=== PATIENT | male | born 1960 | race Caucasian/White ===

== ENCOUNTER 2016-11-14 09:51 | Emergency (ER) | payer BC ==
[2016-11-14] MEDS ORDERED: SODIUM CHLORIDE 0.9% 500 ML IV STA (10:25)
--- NOTE | 2016-11-14 10:27 | ED ---
General Adult HPI - General Chief complaint: Syncope Stated complaint: Near Syncope Time Seen by Provider: 11/14/16 09:55 Source: patient, EMS, RN notes reviewed Mode of arrival: EMS Limitations: no limitations - History of Present Illness Initial comments: This is a 56-year-old male who states that he comes in today because he had a near syncopal episode working on his blood pressure was taken it was 240 systolic. Patient states this is the third episode of near syncope had this week and he has had a history of that in the past many years ago. Patient states prior to the event he becomes lightheaded and feels as though occurred is being pulled over side and then he almost goes out and Lasix to the side. Patient states he had no chest pain no palpitations no difficulty breathing or shortness of breath. Patient states he has a history of hyponatremia. Patient denied any headache patient denied any focal numbness or weakness. Patient denies any abdominal pain patient with any recent nausea vomiting diarrhea. Patient denied working in an extremely hot environment. Patient states she is adequately hydrated he believes. Eyes any recent fever or chills. - Related Data Home Medications Medication Instructions Recorded Confirmed Olmesartan [Benicar] 5 mg PO DAILY 12/08/13 11/14/16 Cholecalciferol [Vitamin D3] 5,000 unit PO DAILY 11/14/16 11/14/16 Multivitamins, Thera [Multivitamin 1 tab PO DAILY 11/14/16 11/14/16 (formulary)] Allergies Allergy/AdvReac Type Severity Reaction Status Date / Time iodine Allergy Anaphylaxis Verified 11/14/16 10:39 Review of Systems ROS Statement: Those systems with pertinent positive or pertinent negative responses have been documented in the HPI. ROS Other: All systems not noted in ROS Statement are negative. Past Medical History Past Medical History: Hypertension History of Any Multi-Drug Resistant Organisms: None Reported Past Surgical History: Bariatric Surgery Additional Past Surgical History / Comment(s): uvula surgery Past Psychological History: No Psychological Hx Reported Smoking Status: Never smoker Past Alcohol Use History: None Reported Past Drug Use History: None Reported General Exam - General Exam Comments Initial Comments: GENERAL: Patient is well-developed and well-nourished. Patient is nontoxic and well- hydrated and is in no acute distress. ENT: Neck is soft and supple. No significant lymphadenopathy is noted. Oropharynx is clear. Moist mucous membranes. Neck has full range of motion without eliciting any pain. EYES: The sclera were anicteric and conjunctiva were pink and moist. Extraocular movements were intact and pupils were equal round and reactive to light. Eyelids were unremarkable. PULMONARY: Unlabored respirations. Good breath sounds bilaterally. No audible rales rhonchi or wheezing was noted. CARDIOVASCULAR: There is a regular rate and rhythm without any murmurs gallops or rubs. ABDOMEN: Soft and nontender with normal bowel sounds. No palpable organomegaly was noted. There is no palpable pulsatile mass. SKIN: Skin is clear with no lesions or rashes and otherwise unremarkable. NEUROLOGIC: Patient is alert and oriented x3. Cranial nerves II through XII are grossly intact. Motor and sensory are also intact. Normal speech, volume and content. Symmetrical smile. MUSCULOSKELETAL: Normal extremities with adequate strength and full range of motion. No lower extremity swelling or edema. No calf tenderness. LYMPHATICS: No significant lymphadenopathy is noted PSYCHIATRIC: Normal psychiatric evaluation. Limitations: no limitations Course Vital Signs 11/14/16 11/14/16 09:53 10:49 Temperature 97.7 F Pulse Rate 93 89 Respiratory 20 20 Rate Blood Pressure 218/97 159/90 O2 Sat by Pulse 97 98 Oximetry Medical Decision Making - Medical Decision Making EKG shows a normal sinus rhythm at 91 bpm WV interval is 170 QRS is 90 QT interval 366 QTC is 450. Patient's EKG shows no ST segment elevation or depression or T wave abnormalities are noted. Patient's labs came back within normal limits I told the patient like to keep him because this is third near syncopal episode this week patient states he had to go somewhere on the weekend and did not want to stay so he was refusing admission. - Lab Data Result diagrams: 11/14/16 10:10 11/14/16 10:10 Lab Results 11/14/16 11/14/16 11/14/16 Range/Units 10:10 10:10 10:10 WBC 9.8 (3.8-10.6) k/uL RBC 4.87 (4.30-5.90) m/uL Hgb 15.4 (13.0-17.5) gm/dL Hct 44.5 (39.0-53.0) % MCV 91.5 (80.0-100.0) fL MCH 31.6 (25.0-35.0) pg MCHC 34.6 (31.0-37.0) g/dL RDW 14.4 (11.5-15.5) % Plt Count 242 (150-450) k/uL Neutrophils % 71 % Lymphocytes % 20 % Monocytes % 4 % Eosinophils % 4 % Basophils % 1 % Neutrophils # 6.9 (1.3-7.7) k/uL Lymphocytes # 1.9 (1.0-4.8) k/uL Monocytes # 0.4 (0-1.0) k/uL Eosinophils # 0.4 (0-0.7) k/uL Basophils # 0.1 (0-0.2) k/uL PT (9.0-12.0) sec INR (<1.2) APTT (22.0-30.0) sec Sodium 141 (137-145) mmol/L Potassium 3.5 (3.5-5.1) mmol/L Chloride 105 (98-107) mmol/L Carbon Dioxide 27 (22-30) mmol/L Anion Gap 9 mmol/L BUN 10 (9-20) mg/dL Creatinine 0.73 (0.66-1.25) mg/dL Est GFR (MDRD) Af Amer >60 (>60 ml/min/1.73 sqM) Est GFR (MDRD) Non-Af >60 (>60 ml/min/1.73 sqM) Glucose 124 H (74-99) mg/dL Calcium 9.1 (8.4-10.2) mg/dL Magnesium 1.7 (1.6-2.3) mg/dL Total Bilirubin 0.8 (0.2-1.3) mg/dL AST 20 (17-59) U/L ALT 24 (21-72) U/L Alkaline Phosphatase 75 (38-126) U/L Total Creatine Kinase 25 L (55-170) U/L CK-MB (CK-2) 0.5 (0.0-2.4) ng/mL CK-MB (CK-2) Rel Index 2.0 Troponin I <0.012 (0.000-0.034) ng/mL Total Protein 6.5 (6.3-8.2) g/dL Albumin 3.8 (3.5-5.0) g/dL 11/14/16 Range/Units 10:10 WBC (3.8-10.6) k/uL RBC (4.30-5.90) m/uL Hgb (13.0-17.5) gm/dL Hct (39.0-53.0) % MCV (80.0-100.0) fL MCH (25.0-35.0) pg MCHC (31.0-37.0) g/dL RDW (11.5-15.5) % Plt Count (150-450) k/uL Neutrophils % % Lymphocytes % % Monocytes % % Eosinophils % % Basophils % % Neutrophils # (1.3-7.7) k/uL Lymphocytes # (1.0-4.8) k/uL Monocytes # (0-1.0) k/uL Eosinophils # (0-0.7) k/uL Basophils # (0-0.2) k/uL PT 10.5 (9.0-12.0) sec INR 1.0 (<1.2) APTT 23.5 (22.0-30.0) sec Sodium (137-145) mmol/L Potassium (3.5-5.1) mmol/L Chloride (98-107) mmol/L Carbon Dioxide (22-30) mmol/L Anion Gap mmol/L BUN (9-20) mg/dL Creatinine (0.66-1.25) mg/dL Est GFR (MDRD) Af Amer (>60 ml/min/1.73 sqM) Est GFR (MDRD) Non-Af (>60 ml/min/1.73 sqM) Glucose (74-99) mg/dL Calcium (8.4-10.2) mg/dL Magnesium (1.6-2.3) mg/dL Total Bilirubin (0.2-1.3) mg/dL AST (17-59) U/L ALT (21-72) U/L Alkaline Phosphatase (38-126) U/L Total Creatine Kinase (55-170) U/L CK-MB (CK-2) (0.0-2.4) ng/mL CK-MB (CK-2) Rel Index Troponin I (0.000-0.034) ng/mL Total Protein (6.3-8.2) g/dL Albumin (3.5-5.0) g/dL Disposition Clinical Impression: Near syncope Disposition: HOME SELF-CARE Condition: Good Instructions: Near Syncope (ED) Additional Instructions: Patient should not drive until he is reevaluated for his near syncope Referrals: Lloyd Lindsay DO [Primary Care Provider] - 1-2 days Time of Disposition: 11:46
--- NOTE | 2016-11-14 10:40 | XR ---
EXAMINATION TYPE: XR chest 2V DATE OF EXAM: 11/14/2016 COMPARISON: 04/17/2011 INDICATION: Chest pain and dizziness syncope TECHNIQUE: Frontal and lateral views of the chest are obtained. FINDINGS: The heart size is normal. The pulmonary vasculature is normal. The lungs are clear. Azygos fissure is evident. EKG leads overlie the chest. IMPRESSION: 1. No acute pulmonary process.
[2016-11-14 10:48] LABS: Basophils # (A) 0.1 k/uL (0-0.2); Basophils % (A) 1 %; CHCM 36.3; Eosinophils # (A) 0.4 k/uL (0-0.7); Eosinophils % (A) 4 %; HCT 44.5 % (39.0-53.0); HGB 15.4 gm/dL (13.0-17.5); Luc # (Auto) 0.08; Luc % (Auto) 1; Lymphocytes # (A) 1.9 k/uL (1.0-4.8); Lymphocytes % (A) 20 %; MCH 31.6 pg (25.0-35.0); MCHC 34.6 g/dL (31.0-37.0); MCV 91.5 fL (80.0-100.0); Mean Platelet Volume 7.1; Monocytes # (A) 0.4 k/uL (0-1.0); Monocytes % (A) 4 %; Neutrophils # (A) 6.9 k/uL (1.3-7.7); Neutrophils % (A) 71 %; RBC 4.87 m/uL (4.30-5.90); RDW 14.4 % (11.5-15.5); WBC 9.8 k/uL (3.8-10.6); WBC (Perox) 9.47
[2016-11-14 10:51] LABS: Partial Thromboplastin Time 23.5 sec (22.0-30.0); Prothrombin Time 10.5 sec (9.0-12.0)
[2016-11-14 11:00] LABS: ALT 24 U/L (21-72); AST 20 U/L (17-59); Alkaline Phosphatase 75 U/L (38-126); Anion Gap 9 mmol/L; Blood Urea Nitrogen 10 mg/dL (9-20); Calcium 9.1 mg/dL (8.4-10.2); Carbon Dioxide 27 mmol/L (22-30); Chloride 105 mmol/L (98-107); Glucose 124 mg/dL (74-99); Magnesium 1.7 mg/dL (1.6-2.3); Non-African American GFR(MDRD) >60 (>60 ml/min/1.73 sqM); Potassium 3.5 mmol/L (3.5-5.1); Sodium 141 mmol/L (137-145); Total Bilirubin 0.8 mg/dL (0.2-1.3); Total Protein 6.5 g/dL (6.3-8.2)
[2016-11-14 11:10] LABS: Creatine Kinase 25 U/L (55-170)
[2016-11-14 11:21] LABS: Troponin I <0.012 ng/mL (0.000-0.034)
[2016-11-14 11:22] LABS: Creatine Kinase MB 0.5 ng/mL (0.0-2.4)
[2016-11-14 12:04] VITALS: BP 159/76; PULSE 58; RESP 18; TEMP 97.9
== END 2016-11-14 12:03 | disposition home or self-care (01) ==
LOC: EC 09:51
DX: R55 Syncope and collapse (principal); I10 Essential (primary) hypertension; Z91.048 Other nonmedicinal substance allergy status; Z79.899 Other long term (current) drug therapy
CPT/HCPCS: 36415; 71020; 80053; 82550; 82553; 83735; 84484; 85025; 85610; 85730; 93005; 99285

== ENCOUNTER 2017-05-13 12:47 | Day surgery (SDC) | payer BC ==
[2017-05-12 11:10] VITALS: BMI 43.4
[~2017-05-13 12:47] MED LIST: SODIUM CHLORIDE 0.9% 1,000 ML IV SCH
[2017-05-13 13:06] VITALS: BP 182/104; PULSE 76; RESP 18; TEMP 97.9
--- NOTE | 2017-05-13 16:30 | P.PCN ---
Preoperative Diagnosis: Tilt table test for recurrent dizzy spells and presyncope as well as syncope The ECG shows sinus rhythm with a normal GA interval narrow QRS normal ST segments no delta waves no epsilon waves no ST segment abnormalities in the precordial leads normal QT interval Tilt table test procedure Baseline blood pressure 146/87 mmHg Baseline heart rate 60 beats a minute Patient was tilted upright at an angle of 70 per protocol there wasno change in his heart rate and blood pressure the patient remained asymptomatic through the test Impression Normal heart rate and blood pressure response to upright tilting Hypertension No evidence for neurocardiogenic syncope or dysautonomia Anesthesia: none Condition: stable
== END 2017-05-13 15:05 | disposition home or self-care (01) ==
LOC: CATHEP 12:47
PROVIDERS: ATTEND Internal Medicine Clinical Cardiac Electrophysiology
DX: R55 Syncope and collapse (principal); I10 Essential (primary) hypertension; E78.2 Mixed hyperlipidemia; Z98.84 Bariatric surgery status; Z87.891 Personal history of nicotine dependence; Z79.82 Long term (current) use of aspirin; Z79.899 Other long term (current) drug therapy; Z91.041 Radiographic dye allergy status; Z91.013 Allergy to seafood
CPT/HCPCS: 93005; 93660

== ENCOUNTER 2017-05-31 09:02 | Emergency (ER) | payer BC ==
[2017-05-31 09:13] VITALS: BP 164/71; RESP 16; TEMP 97.5
[2017-05-31] MEDS ORDERED: SODIUM CHLORIDE 0.9% 1,000 ML IV STA (09:13)
[2017-05-31 09:28] VITALS: PULSE 61
[2017-05-31 09:40] LABS: Basophils # (A) 0.1 k/uL (0-0.2); Basophils % (A) 1 %; Eosinophils # (A) 0.4 k/uL (0-0.7); Eosinophils % (A) 5 %; HGB 15.2 gm/dL (13.0-17.5); Lymphocytes # (A) 2.6 k/uL (1.0-4.8); Lymphocytes % (A) 35 %; MCH 30.5 pg (25.0-35.0); MCHC 33.2 g/dL (31.0-37.0); MCV 92.1 fL (80.0-100.0); Mean Platelet Volume 6.6; Monocytes # (A) 0.4 k/uL (0-1.0); Monocytes % (A) 5 %; Neutrophils % (A) 52 %; Platelet Count 252 k/uL (150-450); RBC 4.99 m/uL (4.30-5.90); RDW 12.8 % (11.5-15.5); WBC 7.6 k/uL (3.8-10.6)
--- NOTE | 2017-05-31 09:56 | ED ---
General Adult HPI - General Chief complaint: Syncope Stated complaint: Syncope Time Seen by Provider: 05/31/17 09:04 Source: patient, family, RN/MD, RN notes reviewed, old records reviewed Mode of arrival: wheelchair Limitations: no limitations - History of Present Illness Initial comments: This is a 48-year-old male the ER for evaluation of syncopal event. Patient has history of recurrent syncope. History of heart disease history of atrial fibrillation. Patient recently went up on his metoprolol dosing. Patient was getting blood drawn today for outpatient lab test in the future procedure, patient passed out during exam. Patient comes ER today feeling fatigued lightheaded and dizzy. No chest pain or shortness of breath - Related Data Home Medications Medication Instructions Recorded Confirmed Cholecalciferol [Vitamin D3] 5,000 unit PO DAILY 11/14/16 05/31/17 Multivitamins, Thera [Multivitamin 1 tab PO DAILY 11/14/16 05/31/17 (formulary)] Aspirin [Adult Low Dose Aspirin EC] 81 mg PO HS 05/12/17 05/31/17 Losartan [Cozaar] 50 mg PO DAILY@1200 05/12/17 05/31/17 Metoprolol Tartrate [Lopressor] 50 mg PO BID 05/12/17 05/31/17 Ranitidine HCl [Zantac] 150 mg PO DIRECTED 05/31/17 05/31/17 diphenhydrAMINE HCL [Benadryl] 25 mg PO DIRECTED 05/31/17 05/31/17 predniSONE 40 mg PO DIRECTED 05/31/17 05/31/17 Allergies Allergy/AdvReac Type Severity Reaction Status Date / Time iodine Allergy Anaphylaxis Verified 05/31/17 10:45 Review of Systems ROS Statement: Those systems with pertinent positive or pertinent negative responses have been documented in the HPI. ROS Other: All systems not noted in ROS Statement are negative. Past Medical History Past Medical History: Atrial Fibrillation, Hypertension, Syncope Additional Past Medical History / Comment(s): SEE DR KIDD H&P History of Any Multi-Drug Resistant Organisms: None Reported Past Surgical History: Bariatric Surgery, Orthopedic Surgery Additional Past Surgical History / Comment(s): GASTRIC SLEEVE, LEFT KNEE SX, uvula surgery Past Anesthesia/Blood Transfusion Reactions: Previous Problems w/ Anesthesia Additional Past Anesthesia/Blood Transfusion Reaction / Comment(s): STATES TAKES LONGER TO WAKE UP Past Psychological History: No Psychological Hx Reported Smoking Status: Never smoker Past Alcohol Use History: None Reported Past Drug Use History: None Reported - Past Family History Father Family Medical History: Deep Vein Thrombosis (DVT) General Exam Limitations: no limitations General appearance: alert, in no apparent distress Head exam: Present: atraumatic, normocephalic, normal inspection Eye exam: Present: normal appearance, PERRL, EOMI. Absent: scleral icterus, conjunctival injection, periorbital swelling ENT exam: Present: normal exam, mucous membranes moist Neck exam: Present: normal inspection. Absent: tenderness, meningismus, lymphadenopathy Respiratory exam: Present: normal lung sounds bilaterally. Absent: respiratory distress, wheezes, rales, rhonchi, stridor Cardiovascular Exam: Present: normal rhythm, bradycardia, normal heart sounds. Absent: systolic murmur, diastolic murmur, rubs, gallop, clicks GI/Abdominal exam: Present: soft, normal bowel sounds. Absent: distended, tenderness, guarding, rebound, rigid Extremities exam: Present: normal inspection, full ROM, normal capillary refill. Absent: tenderness, pedal edema, joint swelling, calf tenderness Back exam: Present: normal inspection Neurological exam: Present: alert, oriented X3, CN II-XII intact Psychiatric exam: Present: normal affect, normal mood Skin exam: Present: warm, dry, intact, normal color. Absent: rash Course Vital Signs 05/31/17 05/31/17 09:11 09:24 Temperature 97.5 F L Pulse Rate 54 L 61 Respiratory 16 16 Rate Blood Pressure 164/71 O2 Sat by Pulse 97 Oximetry - Reevaluation(s) Reevaluation #1: 05/31/17 09:56 Patient has multiple issues in the past with recurrent syncope EKG Findings - EKG Comments: EKG Findings:: EKG shows sinus bradycardia rate of 47, SC 184, QRS 82, QTC 377 Medical Decision Making - Lab Data Result diagrams: 05/31/17 09:20 05/31/17 09:20 Lab Results 05/31/17 05/31/17 05/31/17 Range/Units 09:20 09:20 09:20 WBC 7.6 (3.8-10.6) k/uL RBC 4.99 (4.30-5.90) m/uL Hgb 15.2 (13.0-17.5) gm/dL Hct 46.0 (39.0-53.0) % MCV 92.1 (80.0-100.0) fL MCH 30.5 (25.0-35.0) pg MCHC 33.2 (31.0-37.0) g/dL RDW 12.8 (11.5-15.5) % Plt Count 252 (150-450) k/uL Neutrophils % 52 % Lymphocytes % 35 % Monocytes % 5 % Eosinophils % 5 % Basophils % 1 % Neutrophils # 4.0 (1.3-7.7) k/uL Lymphocytes # 2.6 (1.0-4.8) k/uL Monocytes # 0.4 (0-1.0) k/uL Eosinophils # 0.4 (0-0.7) k/uL Basophils # 0.1 (0-0.2) k/uL PT (9.0-12.0) sec INR (<1.2) APTT (22.0-30.0) sec Sodium 141 (137-145) mmol/L Potassium 4.1 (3.5-5.1) mmol/L Chloride 104 (98-107) mmol/L Carbon Dioxide 25 (22-30) mmol/L Anion Gap 12 mmol/L BUN 13 (9-20) mg/dL Creatinine 0.70 (0.66-1.25) mg/dL Est GFR (MDRD) Af Amer >60 (>60 ml/min/1.73 sqM) Est GFR (MDRD) Non-Af >60 (>60 ml/min/1.73 sqM) Glucose 102 H (74-99) mg/dL Calcium 9.7 (8.4-10.2) mg/dL Phosphorus 3.8 (2.5-4.5) mg/dL Magnesium 1.8 (1.6-2.3) mg/dL Total Bilirubin 0.9 (0.2-1.3) mg/dL AST 21 (17-59) U/L ALT 34 (21-72) U/L Alkaline Phosphatase 78 (38-126) U/L Total Creatine Kinase 24 L (55-170) U/L CK-MB (CK-2) 0.6 (0.0-2.4) ng/mL CK-MB (CK-2) Rel Index 2.5 Troponin I <0.012 (0.000-0.034) ng/mL Total Protein 6.7 (6.3-8.2) g/dL Albumin 3.8 (3.5-5.0) g/dL 05/31/17 Range/Units 09:20 WBC (3.8-10.6) k/uL RBC (4.30-5.90) m/uL Hgb (13.0-17.5) gm/dL Hct (39.0-53.0) % MCV (80.0-100.0) fL MCH (25.0-35.0) pg MCHC (31.0-37.0) g/dL RDW (11.5-15.5) % Plt Count (150-450) k/uL Neutrophils % % Lymphocytes % % Monocytes % % Eosinophils % % Basophils % % Neutrophils # (1.3-7.7) k/uL Lymphocytes # (1.0-4.8) k/uL Monocytes # (0-1.0) k/uL Eosinophils # (0-0.7) k/uL Basophils # (0-0.2) k/uL PT 10.1 (9.0-12.0) sec INR 1.0 (<1.2) APTT 21.9 L (22.0-30.0) sec Sodium (137-145) mmol/L Potassium (3.5-5.1) mmol/L Chloride (98-107) mmol/L Carbon Dioxide (22-30) mmol/L Anion Gap mmol/L BUN (9-20) mg/dL Creatinine (0.66-1.25) mg/dL Est GFR (MDRD) Af Amer (>60 ml/min/1.73 sqM) Est GFR (MDRD) Non-Af (>60 ml/min/1.73 sqM) Glucose (74-99) mg/dL Calcium (8.4-10.2) mg/dL Phosphorus (2.5-4.5) mg/dL Magnesium (1.6-2.3) mg/dL Total Bilirubin (0.2-1.3) mg/dL AST (17-59) U/L ALT (21-72) U/L Alkaline Phosphatase (38-126) U/L Total Creatine Kinase (55-170) U/L CK-MB (CK-2) (0.0-2.4) ng/mL CK-MB (CK-2) Rel Index Troponin I (0.000-0.034) ng/mL Total Protein (6.3-8.2) g/dL Albumin (3.5-5.0) g/dL Disposition Clinical Impression: Vasovagal syncope, Bradycardia Disposition: HOME SELF-CARE Condition: Good Instructions: Bradycardia (ED), Syncope (ED) Referrals: Lloyd Lindsay DO [Primary Care Provider] - 1-2 days
[2017-05-31 10:08] LABS: Prothrombin Time 10.1 sec (9.0-12.0)
[2017-05-31 10:12] LABS: ALT 34 U/L (21-72); AST 21 U/L (17-59); Albumin 3.8 g/dL (3.5-5.0); Alkaline Phosphatase 78 U/L (38-126); Anion Gap 12 mmol/L; Blood Urea Nitrogen 13 mg/dL (9-20); Calcium 9.7 mg/dL (8.4-10.2); Carbon Dioxide 25 mmol/L (22-30); Chloride 104 mmol/L (98-107); Glucose 102 mg/dL (74-99); Magnesium 1.8 mg/dL (1.6-2.3); Phosphorus 3.8 mg/dL (2.5-4.5); Potassium 4.1 mmol/L (3.5-5.1); Sodium 141 mmol/L (137-145); Total Bilirubin 0.9 mg/dL (0.2-1.3); Total Protein 6.7 g/dL (6.3-8.2)
[2017-05-31 10:13] LABS: Creatine Kinase 24 U/L (55-170)
[2017-05-31 10:15] LABS: Partial Thromboplastin Time 21.9 sec (22.0-30.0)
[2017-05-31 10:26] LABS: Creatine Kinase MB 0.6 ng/mL (0.0-2.4); Troponin I <0.012 ng/mL (0.000-0.034)
== END 2017-05-31 11:53 | disposition home or self-care (01) ==
LOC: EC 09:02
DX: R55 Syncope and collapse (principal); R00.1 Bradycardia, unspecified; R42 Dizziness and giddiness; R53.83 Other fatigue; I48.91 Unspecified atrial fibrillation; I10 Essential (primary) hypertension; Z79.82 Long term (current) use of aspirin; Z79.52 Long term (current) use of systemic steroids; Z79.899 Other long term (current) drug therapy; Z88.8 Allergy status to other drugs, medicaments and biological substances
CPT/HCPCS: 36415; 80053; 82550; 82553; 83735; 84100; 84484; 85025; 85610; 85730; 93005; 96360; 96361; 99284

== ENCOUNTER 2017-06-02 07:44 | Day surgery (SDC) | payer BC ==
[~2017-06-02 07:44] MED LIST changes: +ALPRAZolam 0.25 MG TAB PO PRN; +ALPRAZolam 0.5 MG TAB PO PRN; +ASPIRIN 325 MG TAB PO STA; +ATORVASTATIN 80 MG TAB PO STA; +NITROGLYCERIN SL TABS 0.4 MG TAB SUBLINGUAL PRN; -SODIUM CHLORIDE 0.9% 1,000 ML IV SCH; +SODIUM CHLORIDE 0.9% 1,000 ML in EMPTY BAG 1 BAG IV ONE
[2017-06-02] MEDS ORDERED: LIDOCAINE 2% INJ 20 MG/ML (20 ML MDV) ONE (10:30)
[2017-06-02] MEDS ORDERED: MIDAZOLAM 2 MG/2 ML VIAL ONE (10:30)
[2017-06-02] MEDS ORDERED: fentaNYL (PF) 50 MCG/ML 2 ML AMP ONE (10:31)
[2017-06-02] MEDS ORDERED: METOPROLOL TARTRATE 5 MG/5 ML VIAL IVP ONE ×2 (11:00)
[2017-06-02] MEDS ORDERED: MIDAZOLAM 2 MG/2 ML VIAL IVP ONE ×2 (11:00→12:01)
[2017-06-02] MEDS: fentaNYL (PF) 50 MCG/ML 2 ML AMP IVP ONE ×2 (11:01→11:54)
[2017-06-02] MEDS ORDERED: diphenhydrAMINE 50 MG/ML 1 ML VIAL ONE (11:01)
[2017-06-02] MEDS ORDERED: LIDOCAINE 2% INJ 20 MG/ML SQ ONE (11:04)
[2017-06-02] MEDS ORDERED: diphenhydrAMINE 50 MG/ML 1 ML VIAL IVP ONE (11:07)
[2017-06-02] MEDS ORDERED: BIVALIRUDIN BOLUS 250 MG/50 ML IV ONE (12:14)
--- NOTE | 2017-06-02 12:14 | CC ---
CARDIAC CATHETERIZATION REPORT Mr. Rausch is a 56-year-old gentleman who has been having recurrent episodes of syncope, exact etiology of syncope unclear. Clinically, patient's syncope appears to be a neurogenic mediated syncope. Patient was also having intermittent PVC's. The recent tilt-table test was negative. Patient was evaluated by Dr. Sandra. He was advised further evaluation with cardiac catheterization and possible EP studies. PROCEDURE: The right groin was prepped and draped in the usual manner and the skin was infiltrated with 2% Xylocaine. The right femoral artery was entered using Seldinger technique. A #6-Mauritanian sheath was placed in. Selective coronary angiography was then performed in multiple projections and the left ventriculography was performed. Patient tolerated the procedure well. HEMODYNAMICS: Left ventricular end-diastolic pressure is 16-20 mmHg prior to angiography. No gradient is noted across the aortic valve. SELECTIVE CORONARY ANGIOGRAPHY: Left main coronary artery is normal and patent. LAD is a good caliber blood vessel, after to origin of the good-sized diagonal branch, the mid LAD has about 60% stenosis. Circumflex coronary artery gives rise to a good size obtuse marginal branch and it is normal. Right coronary artery is ectatic and quite dilated in its proximal portion. It gives rise to the posterior descending artery and PDA branch which are normal. FINAL IMPRESSION: Left main coronary artery is normal. Mid left anterior descending artery has about 60% stenosis. Circumflex coronary artery is normal. Right coronary artery is a large and ectatic without any hemodynamically significant stenosis. Left ventricular end- diastolic pressure 20 mmHg. Moderate sedation was used. Sedation time was 24 minutes. RECOMMENDATIONS: We will review the films with Dr. Cabrera and consider to the LAD. Depending upon that, further recommendations will be made. MMODL / IJN: [id number] /
[2017-06-02] MEDS ORDERED: BIVALIRUDIN 250 MG in SODIUM CHLORIDE 0.9% 50 ML IV ONE ×2 (12:15→12:30)
[2017-06-02] MEDS: NITROGLYCERIN 1000MCG/10ML SYRINGE INTRACORON ONE ×2 (12:32→12:36)
[2017-06-02] MEDS ORDERED: TICAGRELOR 90 MG TAB ONE (12:40)
[2017-06-02] MEDS ORDERED: ATROPINE SULFATE 0.1 MG/ML 10ML SYRINGE IV PRN (12:44)
[2017-06-02] MEDS ORDERED: NITROGLYCERIN SL TABS 0.4 MG TAB SUBLINGUAL PRN (12:44)
[2017-06-02] MEDS ORDERED: ZOLPIDEM 5 MG TAB PO PRN (12:44)
[2017-06-02] MEDS ORDERED: MAG HYDROX/AL HYDROX/SIMETH 30 ML CUP PO PRN (12:44)
[2017-06-02] MEDS ORDERED: RX INFO: IV CONTRAST WAS GIVEN 1 EACH MISC MISCELLANE PRN (12:44)
[2017-06-02] MEDS ORDERED: IOHEXOL 350 MG/ML 125ML BOTTLE INJ ONE (12:50)
[2017-06-02] MEDS ORDERED: TICAGRELOR 90 MG TAB PO ONE (12:51)
[2017-06-02] MEDS ORDERED: HYDROmorphone 2 MG/ML 1 ML SYRINGE IV ONE (12:51)
[2017-06-02] MEDS ORDERED: NON-FORMULARY DRUG (Ranitidine Hcl [Zantac] 150 MG) PO SCH (13:00)
[2017-06-02] MEDS: SODIUM CHLORIDE 0.9% 1,000 ML IV SCH (14:36)
--- NOTE | 2017-06-02 18:08 | LTR ---
June 02, 2017 To: Dr. Lloyd Lindsay From Dr. Madrigal Re: Carmelo Rausch (date of 56) Dear Dr. Lindsay, Mr. Carmelo Rausch underwent earlier today a heart catheterization by Dr. Pat Garza and that revealed severe disease involving the proximal to mid LAD. I performed successful angioplasty and stenting of the LAD, with good angiographic results and without any complications. Thank you for allowing us to participate in his care. Please do not hesitate to call if you have any question or concern. Sincerely, Rohan Cabrera MD MMYEL / DAVINN: [id number] /
[2017-06-02] MEDS: TICAGRELOR 90 MG TAB PO SCH (20:28)
[2017-06-02] MEDS: METOPROLOL TARTRATE 50 MG TAB PO SCH (20:28)
[2017-06-03] MEDS: SODIUM CHLORIDE 0.9% 1,000 ML IV SCH (04:56)
[2017-06-03 06:13] LABS: Basophils % (A) 0 %; Eosinophils # (A) 0.2 k/uL (0-0.7); Eosinophils % (A) 2 %; HCT 41.9 % (39.0-53.0); HGB 13.9 gm/dL (13.0-17.5); Lymphocytes # (A) 2.7 k/uL (1.0-4.8); Lymphocytes % (A) 26 %; MCH 31.2 pg (25.0-35.0); MCHC 33.2 g/dL (31.0-37.0); MCV 94.1 fL (80.0-100.0); Mean Platelet Volume 6.8; Monocytes # (A) 0.7 k/uL (0-1.0); Monocytes % (A) 7 %; Neutrophils # (A) 6.5 k/uL (1.3-7.7); Neutrophils % (A) 63 %; Platelet Count 217 k/uL (150-450); RBC 4.45 m/uL (4.30-5.90); RDW 13.1 % (11.5-15.5); WBC 10.2 k/uL (3.8-10.6)
[2017-06-03 06:27] LABS: Anion Gap 10 mmol/L; Blood Urea Nitrogen 14 mg/dL (9-20); Carbon Dioxide 26 mmol/L (22-30); Chloride 104 mmol/L (98-107); Glucose 80 mg/dL (74-99); Potassium 4.3 mmol/L (3.5-5.1); Sodium 140 mmol/L (137-145)
[2017-06-03] MEDS ORDERED: ASPIRIN 81 MG PO SCH (09:00)
[2017-06-03] MEDS ORDERED: ATORVASTATIN 40 MG TAB PO SCH (09:00)
[2017-06-03] MEDS ORDERED: CHOLECALCIFEROL 1,000 UNIT TAB PO SCH (09:00)
[2017-06-03] MEDS: TICAGRELOR 90 MG TAB PO SCH (09:12)
[2017-06-03] MEDS: METOPROLOL TARTRATE 50 MG TAB PO SCH (09:12)
[2017-06-03 10:11] VITALS: RESP 16
[2017-06-03 10:16] VITALS: BMI 46.3
[2017-06-03] MEDS ORDERED: NITROGLYCERIN SL TABS 0.4 MG TAB SUBLINGUAL PRN (11:07)
[2017-06-03] MEDS ORDERED: MAG HYDROX/AL HYDROX/SIMETH 30 ML CUP PO PRN (11:07)
[2017-06-03] MEDS ORDERED: RX INFO: IV CONTRAST WAS GIVEN 1 EACH MISC MISCELLANE PRN (11:07)
[2017-06-03] MEDS ORDERED: ZOLPIDEM 5 MG TAB PO PRN (11:07)
[2017-06-03] MEDS ORDERED: ATROPINE SULFATE 0.1 MG/ML 10ML SYRINGE IV PRN (11:07)
[2017-06-03] MEDS ORDERED: SODIUM CHLORIDE 0.9% 1,000 ML IV SCH (11:15)
[2017-06-03] MEDS ORDERED: MULTIVITAMINS, THERA 1 EACH TAB PO SCH (12:00)
[2017-06-03] MEDS ORDERED: LOSARTAN 50 MG TAB PO SCH (12:00)
[2017-06-03 12:04] VITALS: BP 141/92; PULSE 48; TEMP 97
[2017-06-03] MEDS ORDERED: TICAGRELOR 90 MG TAB PO SCH (21:00)
[2017-06-03] MEDS ORDERED: ATORVASTATIN 80 MG TAB PO SCH (21:00)
[2017-06-04] MEDS ORDERED: ASPIRIN 325 MG TAB PO SCH (09:00)
[2017-06-04] MEDS ORDERED: ASPIRIN 81 MG PO SCH (09:00)
[2017-06-04] MEDS ORDERED: CLOPIDOGREL 75 MG TAB PO SCH (11:09)
--- NOTE | 2017-06-27 11:16 | PTCA ---
PERCUTANEOUSTRANS CORORONARY ANGIOGRAPHY DATE OF SERVICE: 06/02/2017. PERFORMING PHYSICIAN: Leodan Forbes, Laboratory Sample Carrier. PROCEDURE PERFORMED: Successful stenting of the proximal to mid-left anterior descending artery using 3.0 x 15 mm Xience CICI with good angiographic results. INDICATION: This is a pleasant 76-year-old gentleman who sees Dr. Sandra as an outpatient who was experiencing recently intermittent episodes of syncope. He also was experiencing intermittent episodes of nausea and was seen and evaluated by Dr. Sandra who recommended proceeding with a heart catheterization. The heart catheterization was performed by Dr. Pat Garza. The heart catheterization revealed severe disease involving the proximal to mid LAD with eccentric lesion appeared to be in the range of 70% and seems to be hazy as well. In view of that, a recommendation was made toward proceeding with a percutaneous coronary intervention. APPROACH: Right common femoral artery. COMPLICATION: None. LEVEL OF SEDATION: Moderate with sedation length of 28 minutes. PROCEDURE DESCRIPTION: Diagnostic heart catheterization was performed by Dr. Poncho Garza. Anticoagulation was initiated using Angiomax. Subsequently I did engage the left main using an XB3.5 LAD guide. A whisper wire was used to wire the LAD. After that, I did balloon angioplasty of the lesion in the proximal to mid LAD using 2.5 x 12 mm balloon. Subsequently, I did deploy a 3.0 x 15 mm Xience CICI where the stent was positioned under fluoroscopy guidance and deployed under 18 atmospheres for 25 seconds. The following angiogram showed good angiographic results without perforation and without dissection with good flow in the LAD. POSTPROCEDURE MANAGEMENT: 1. Expanded groin care. 2. Dual anti-platelet therapy. 3. Risk factor modification. 4. Aggressive cholesterol control. 5. Follow up with the patient. MMODL / IJN: [id number] /
== END 2017-06-03 13:25 | disposition home or self-care (01) ==
LOC: CATHCVL 07:44 → 6SEL 12:41 → CATHCVL 06-03 13:25
PROVIDERS: ATTEND Family Medicine
DX: I25.10 Atherosclerotic heart disease of native coronary artery without angina pectoris (principal); I10 Essential (primary) hypertension; Z87.891 Personal history of nicotine dependence; Z79.82 Long term (current) use of aspirin; Z79.899 Other long term (current) drug therapy; Z91.048 Other nonmedicinal substance allergy status
CPT/HCPCS: 93458; 80048; 85025; C9600; C1769 ×3; C1725; C1887; C1894; C1874; J2001; J2250; J1170; J1200; J3010; J0583; Q9967

== ENCOUNTER 2017-06-12 12:41 | Day surgery (SDC) | payer BC ==
[2017-06-10 10:54] VITALS: BMI 44.7
[2017-06-12] MEDS ORDERED: IV FLUID CONTINUATION 900 ML IV ONE (15:34)
[2017-06-12] MEDS ORDERED: MIDAZOLAM 2 MG/2 ML VIAL ONE (15:38)
[2017-06-12] MEDS ORDERED: fentaNYL (PF) 50 MCG/ML 2 ML AMP ONE (15:38)
[2017-06-12] MEDS ORDERED: PROPOFOL 10 MG/ML 20 ML VIAL IV ONE (15:38)
[2017-06-12] MEDS ORDERED: ISOPROTERENOL 250 MCG/1.25 ML SYR IV ONE (15:38)
[2017-06-12] MEDS ORDERED: LIDOCAINE 2% INJ 20 MG/ML SQ ONE ×2 (16:10→16:52)
[2017-06-12] MEDS ORDERED: HEPARIN SODIUM (1,000 UNIT/ML) 1,000 UNIT in SODIUM CHLORIDE 0.9% 1,000 ML IRRIGATION ONE (16:54)
[2017-06-12] MEDS ORDERED: ACETAMINOPHEN TAB 325 MG TAB PO PRN (19:32)
[2017-06-12] MEDS ORDERED: HYDROcodone/APAP 5-325MG 1 EACH TAB PO PRN (19:32)
[2017-06-12] MEDS ORDERED: ACETAMINOPHEN IV (For NPO) 1,000 MG in EMPTY BAG 1 BAG IVPB ONE (20:00)
--- NOTE | 2017-06-12 20:01 | CE ---
CARDIAC ELECTROPHYSIOLOGY REPORT 56-year-old male patient who had recurrent presyncope and syncope that were preceded by a feeling of palpitations and anxiety, who has known vasodepressor syncope. He also has no nonsustained ventricular tachycardia and underwent coronary stenting to the LAD recently. He is brought in for syncope evaluation. PROCEDURE: Patient brought to the EP lab in a fasting state. Written informed consent was obtained prior to the procedure. The left groin was prepped and draped as per protocol. Three venous sheaths were placed the right femoral vein. Via these, diagnostic catheters were placed in the right heart (high right atrial catheter, His bundle and RV catheter, later coronary sinus catheter). Subsequently, intracardiac echo catheter was placed and a PentaRay catheter was placed and mapping and ablation catheter was placed from the right femoral vein. Then a separate sheath was placed. sheath was also placed later. Sinus cycle length 716 milliseconds, HI interval 172 milliseconds, QRS 104 milliseconds, QT 376 milliseconds. AH interval 76 milliseconds, HV interval 37 milliseconds. Sinus node recovery times of 600, 500, and 400 milliseconds were 991 milliseconds, 1141 and 1029 milliseconds. AV node Wenckebach block 360 milliseconds. No slow pathway. No delta waves. VA Wenckebach block 340 milliseconds. Ventricular extra stimulation was performed at [address] and no ventricular tachycardia was induced. 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 With ventricular extra stimulation, atrial tachycardia was very easily inducible. Initially these were a long nonsustained episodes. When the episodes were more sustained the patient stated that this was a feeling he would get prior to passing out and he would get a jittery panicky feeling before passing out. Intracardiac echo was performed, 3D electro anatomic mapping was performed. A PentaRay catheter was used for mapping this arrhythmia. The right atrium was mapped. The earliest activation was found in the mid right atrial free wall. Subsequently, a mapping ablation catheter was placed along with a long sheath. Pacing was performed at high output to look for any phrenic nerve stimulation. There was no phrenic nerve stimulation in the area of earliest activation. Bipolar and unipolar signals were analyzed and this was a very early site, although this was a slightly irregular atrial tachycardia with a cycle length varying between 340-376 milliseconds, and it was originating in the relatively broad area in the right atrial free wall. RF ablation was applied at this site and the bursts of atrial tachycardia was induced. The entire area was ablated with good contact force and once the entire ablation set was completed, the tachycardia was rendered noninducible. The dimensions of this area were 12 mm in breadth and 29 mm in length. Intracardiac echo revealed absence of any pericardial effusion. EP study was continued and the tachycardia could not be induced again. Please note, high-dose Isuprel was also used for induction of the arrhythmia. However, this led to suppression of the arrhythmia rather than easy induction. At one point during the ablation, atrial fibrillation was induced simply by placing the PentaRay catheter in the site of earliest activation and the patient to be electrically cardioverted through the procedure. RESULT: 1. Diagnostic EP study revealing an atrial tachycardia originating from a broad area in the right atrial free wall that reminded the patient of his premonitory symptoms prior to passing out. Successful mapping and ablation was performed and the tachycardia was rendered noninducible. 2. Normal sinus node function, normal AV node function. No other arrhythmias induced. 3. 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 4. No inducible ventricular tachycardia. PLAN: Continue current medications and reduce the dose of beta blockers 50 mg once daily. Reduce the dose of metoprolol to 25 mg twice daily. Continue anti-platelet agents and statins for status post coronary stenting. MMODL / IJN: [id number] /
[2017-06-12] MEDS: SODIUM CHLORIDE 0.9% 1,000 ML IV SCH ×2 (20:52→21:22)
[2017-06-12] MEDS: LACTATED RINGERS 1,000 ML IV SCH ×2 (20:52→21:22)
[2017-06-12] MEDS: TICAGRELOR 90 MG TAB PO SCH (20:57)
[2017-06-12] MEDS: LOSARTAN 50 MG TAB PO SCH (20:57)
[2017-06-12] MEDS ORDERED: ASPIRIN 81 MG PO SCH (21:00)
[2017-06-12] MEDS ORDERED: ATORVASTATIN 80 MG TAB PO SCH (21:00)
--- NOTE | 2017-06-13 08:05 | P.DS ---
Providers Attending physician: oYvany Sandra Primary care physician: [facility] Course: Patient admitted for evaluation of 1. Recurrent presyncope and syncope preceded by a sensation of rapid heartbeat/ panicky sensation 2. Fast nonsustained VT unrelated to his syncopal spells About a week back he underwent a diagnostic coronary angiography A significant LAD stenosis was noted and he underwent coronary stenting for this Yesterday he was brought for diagnostic EP study for syncope evaluation 1. No evidence for inducible ventricular tachycardia 2. Very easily inducible atrial tachycardia which reminded the patient of his premonitory symptoms prior to presyncope and syncope 3. Normal sinus node and AV node function 4. Left-sided PVCs, unrelated to his symptoms He underwent successful mapping and ablation of the atrial tachycardia and this was rendered noninducible I will reduce the dose of metoprolol to 25 MG's by mouth twice daily since he does not like the effects of beta blockers He will continue his antiplatelet agents and atorvastatin as well as losartan Today in follow-up Patient is doing well. He sitting up in a chair. No chest discomfort no dizziness lightheadedness palpitations. He says he feels very well Telemetry shows sinus rhythm with PVCs. These PVCs were noted during the EP study and seemed to originate from the left ventricle is only the aortic to mitral continue to take, QR pattern of the PVC in lead V1 On examination he is afebrile 97.8F pulse rate in 60s and 70s sinus rhythm, irregular segments of PVCs. Respirations are normal. Blood pressure 121/70 mmHg Breath sounds are clear no adventitious sounds Heart sounds are normal normal S1 normal S2 I don't hear a rub abdomen soft Extremities warm runs of feels well no new hematoma Final impression Neuro cardiac syncope precipitated by right atrial tachycardia Nonsustained ventricular tachycardia secondary to LAD territory ischemia Status post LAD stenting Status post successful ablation of atrial tachycardia PVCs from the aorto-mitral continuity noted but unrelated to symptoms at this time Somewhat intolerant of beta blockers dose will be reduced Hypertension Central obesity Patient Condition at Discharge: Stable Plan - Discharge Summary Discharge Rx Participant: Yes New Discharge Prescriptions: New RX: Metoprolol Tartrate 25 mg PO BID #90 tab Discontinued RX: Metoprolol Tartrate [Lopressor] 50 mg PO BID No Action RX: Multivitamins, Thera [Multivitamin (formulary)] 1 tab PO DAILY RX: Cholecalciferol [Vitamin D3] 5,000 unit PO DAILY RX: Losartan [Cozaar] 50 mg PO BID RX: Aspirin [Adult Low Dose Aspirin EC] 81 mg PO HS RX: Atorvastatin [Lipitor] 80 mg PO HS #30 tab RX: Nitroglycerin Sl Tabs [Nitrostat] 0.4 mg SUBLINGUAL Q5M PRN #25 tab PRN Reason: Chest Pain RX: Ticagrelor [Brilinta] 90 mg PO BID #60 tab Discharge Medication List RX: Cholecalciferol [Vitamin D3] 5,000 unit PO DAILY 11/14/16 [History] RX: Multivitamins, Thera [Multivitamin (formulary)] 1 tab PO DAILY 11/14/16 [ History] RX: Aspirin [Adult Low Dose Aspirin EC] 81 mg PO HS 05/12/17 [History] RX: Losartan [Cozaar] 50 mg PO BID 05/12/17 [History] RX: Atorvastatin [Lipitor] 80 mg PO HS #30 tab 06/03/17 [Rx] RX: Nitroglycerin Sl Tabs [Nitrostat] 0.4 mg SUBLINGUAL Q5M PRN #25 tab [Rx] RX: Ticagrelor [Brilinta] 90 mg PO BID #60 tab 06/03/17 [Rx] RX: Metoprolol Tartrate 25 mg PO BID #90 tab 06/12/17 [Rx] Follow up Appointment(s)/Referral(s): Martha Garza MD [STAFF PHYSICIAN] - 1 Week Activity/Diet/Wound Care/Special Instructions: Post EP study - Ablation instructions 1. Keep access sites dry for 2 days. 2. No heavy lifting or straining for 2 days. 3. Avoid bending the hips repeatedly for 2 days. 4. You may go up and down stairs slowly Call if the following is noted 1. Bleeding, increasing swelling or pain at the access sites. 2. Increasing chest discomfort, especially upon taking a deep breath. 3. Increasing shortness of breath, at rest or with exertion. 4. Undue cough / phlegm 5. Difficulty or pain while swallowing. 6. Pain or change in color in the extremities. 7. Fever, chills, rigors. 8. Increasing headache or neurologic symptoms. 9. Dizziness, fainting, palpitations Medication changes Reduce the dose of metoprolol to 25 MG's by mouth twice daily Follow-up with Dr. Garza in about 1 week for a groin check Discharge Disposition: HOME SELF-CARE
[2017-06-13 08:26] VITALS: RESP 18
[2017-06-13] MEDS: LOSARTAN 50 MG TAB PO SCH (08:34)
[2017-06-13] MEDS: TICAGRELOR 90 MG TAB PO SCH (08:34)
[2017-06-13] MEDS ORDERED: METOPROLOL TARTRATE 25 MG TAB PO SCH (09:00)
[2017-06-13 15:53] VITALS: BP 161/91; PULSE 73; TEMP 97.9
== END 2017-06-13 16:50 | disposition home or self-care (01) ==
LOC: CATHEP 12:41 → 3OBS 19:00 → CATHEP 06-13 16:50
PROVIDERS: ATTEND Internal Medicine Clinical Cardiac Electrophysiology
DX: I47.1 Supraventricular tachycardia (principal); R55 Syncope and collapse; I47.2 Ventricular tachycardia; I49.3 Ventricular premature depolarization; I10 Essential (primary) hypertension; G47.30 Sleep apnea, unspecified; I25.10 Atherosclerotic heart disease of native coronary artery without angina pectoris; Z95.5 Presence of coronary angioplasty implant and graft; E66.8 Other obesity; Z68.41 Body mass index [BMI] 40.0-44.9, adult; Z79.82 Long term (current) use of aspirin; Z79.899 Other long term (current) drug therapy; Z91.09 Other allergy status, other than to drugs and biological substances; Z87.891 Personal history of nicotine dependence
CPT/HCPCS: 93623; 93662; 93613; 93653; C1894; C1769 ×2; C1730 ×2; C1731; C1759; C1893; C1732; J2001; J2250; J3010; J1644; J2704

== ENCOUNTER → 2019-03-01 | Outpatient (CLI) | payer MEDICAID ==
--- NOTE | 2019-03-01 17:56 | MR ---
EXAMINATION TYPE: MR shoulder LT wo con DATE OF EXAM: 03/01/2019 6:45 AM COMPARISON: NONE HISTORY: Left shoulder pain TECHNIQUE: Multiplanar multispin echo imaging of the left shoulder was performed. FINDINGS: Rotator cuff : Thickening of the supraspinatus tendon with a partial undersurface and intrasubstance tear. No evidence for full-thickness tear at this time. Remaining constituents of the rotator cuff ar e intact. Bursa: No bursal effusion or thickening is seen. Musculature: There is no muscular tear, contusion, or atrophy. Acromioclavicular joint : Severe AC joint arthropathy with subacromial spurring resulting in impingem ent. Osseous structures : There are no fractures or regions of abnormal bone marrow signal intensity. Long biceps tendon : The biceps tendon is normally situated within the bicipital groove. No complete or partial biceps tendon tear is present. Glenohumeral Joint fluid : There is no glenohumeral joint effusion. Cartilage and Bone : No focal hyaline cartilage defects are noted. No Hill-Sachs, reverse Hill-Sachs, or bony Bankart lesions are seen. Labrum : There are no SLAP or soft tissue Bankart lesions. No paralabral cysts are seen. OTHER FINDINGS : none IMPRESSION: 1. Thickening of the supraspinatus tendon with a partial undersurface and intrasubstance tear. No ev idence for full-thickness tear at this time. Severe AC joint arthropathy.
== END ==
LOC: RADMRIMAIN 06:07
PROVIDERS: ATTEND Orthopaedic Surgery
DX: S46.812A Strain of other muscles, fascia and tendons at shoulder and upper arm level, left arm, initial encounter (principal); M12.812 Other specific arthropathies, not elsewhere classified, left shoulder; R93.7 Abnormal findings on diagnostic imaging of other parts of musculoskeletal system

== ENCOUNTER 2019-10-16 19:37 | Inpatient (IN) | payer MEDICAID, OTHER ==
[2019-10-16] MEDS ORDERED: ASPIRIN 81 MG PO STA (20:02)
[2019-10-16] MEDS ORDERED: NITROGLYCERIN SL TABS 0.4 MG TAB SUBLINGUAL STA (20:02)
[2019-10-16 20:09] LABS: Basophils # (A) 0.1 k/uL (0-0.2); Basophils % (A) 1 %; Eosinophils # (A) 0.8 k/uL (0-0.7); Eosinophils % (A) 8 %; HCT 46.7 % (39.0-53.0); HGB 15.2 gm/dL (13.0-17.5); Lymphocytes # (A) 2.7 k/uL (1.0-4.8); Lymphocytes % (A) 25 %; MCH 30.2 pg (25.0-35.0); MCHC 32.6 g/dL (31.0-37.0); MCV 92.5 fL (80.0-100.0); Mean Platelet Volume 6.9; Monocytes # (A) 0.7 k/uL (0-1.0); Monocytes % (A) 7 %; Neutrophils # (A) 6.2 k/uL (1.3-7.7); Neutrophils % (A) 58 %; Platelet Count 236 k/uL (150-450); RBC 5.05 m/uL (4.30-5.90); RDW 12.9 % (11.5-15.5); WBC 10.7 k/uL (3.8-10.6)
--- NOTE | 2019-10-16 20:10 | ED ---
General Adult HPI - General Chief complaint: Chest Pain Stated complaint: Chest Pain Time Seen by Provider: 10/16/19 19:38 Source: patient, family Mode of arrival: wheelchair Limitations: no limitations - History of Present Illness Initial comments: Dictation was produced using [employer] dictation software. please excuse any grammatical, word or spelling errors. This patient was cared for during a federal and state declared state of emergency secondary to Covid 19 Chief Complaint: 59-year-old male presents with chest pain and epigastric pain. History of Present Illness: Patient is 62-year-old male he was at a family gathering. He was sitting in a chair while setting he develop significant substernal and epigastric pressure. Patient has history of coronary artery disease status post stent. Patient does not take any blood thinners. He describes the pain as pressure. No radiation to the back. No radiation of symptoms to the upper extremities. He states it is feels slightly worse with deep inspiration. Does feel mildly nauseated. No radiation to the shoulders of the jaw. He does report some diaphoresis and clamminess with the onset of his symptoms. Patient states he had cardiac stent that was placed and May 2017. The ROS documented in this emergency department record has been reviewed and confirmed by me. Those systems with pertinent positive or negative responses have been documented in the HPI. All other systems are other negative and/or noncontributory. PHYSICAL EXAM: General Impression: Alert and oriented x3, not in acute distress HEENT: Normocephalic atraumatic, extra-ocular movements intact, pupils equal and reactive to light bilaterally, mucous membranes moist. Cardiovascular: Heart regular rate and rhythm Chest: Able to complete full sentences, no retractions, no tachypnea, bilateral breath sounds, no wheezing, reproducible chest pain with palpation to the epigastric area Abdomen: abdomen soft, non-tender, non-distended, no organomegaly Musculoskeletal: Pulses present and equal in all extremities, no peripheral edema Motor: no focal deficits noted Neurological: CN II-XII grossly intact, no focal motor or sensory deficits noted Skin: Intact with no visualized rashes Psych: Normal affect and mood ED course: 59-year-old male presents with atypical chest pain typical features. Signs upon arrival shows blood pressure 203/133. His appear to be in mild acute distress. EKG was obtained showing no findings of STEMI. There is sinus arrhythmia. No signs of ischemia or infarction. EKG compared to 06/13/2017 showing no changes.Patient given one nitroglycerin. I received a call from the nurse that patient became very diaphoretic and lightheaded and hypotensive. Patient reevaluated at bedside. He is very diaphoretic. [id number] bedside ultrasound was performed showing no recurrent effusion. Due to patient's body habitus was unable to obtain clear images of the aorta and heart. Patient's blood pressures were cycled and his blood pressure was 138/90. After several minutes patient started to feel better. Seems is a patient given symptomatic after given nitroglycerin. Laboratory evaluation was obtained. CBC shows mild leukocytosis at 10.7. Coag panel is unremarkable. D-dimer is elevated 0.72. Metabolic panel is unremarkable. Chronic enzymes negative. Chest x-ray shows no acute processes. Given patient's degree of symptoms is concern of life-threatening thoracic disease. CT angios of the aorta was obtained showing no findings of pulmonary embolus or angiographic abnormality of the chest abdomen pelvis. No dissection. Patient reevaluated at bedside. They're still concern of acute coronary syndrome. Patient was administered aspirin. Patient was still complaining of pain. Patient was given a GI cocktail with improvement of symptoms. Consider patient's review of symptoms and believe he should be admitted force serial troponins to rule out acute coronary syndrome. Patient will be admitted to the [facility]. Patient has history of bariatric surgery. Considering patient's symptoms were improved with GI cocktail there is concern of gastritis versus peptic ulcer versus marginal ulcer. EKG interpretation: Ventricular rate 74, normal sinus rhythm,. 182, QRS 104, QTc 384. No MI prolongation, no QTC prolongation, no ST or T-wave changes noted. EKG compared to second 2018 showing no changes. Overall, this EKG is unremarkable - Related Data Home Medications Medication Instructions Recorded Confirmed Cholecalciferol [Vitamin D3 (25 5,000 unit PO DAILY@05011/14/16 10/16/19 Mcg = 1000 Iu)] Aspirin [Adult Low Dose Aspirin EC] 81 mg PO HS@1700 05/12/17 10/16/19 Losartan [Cozaar] 50 mg PO DAILY@0500 05/12/17 10/16/19 Metoprolol Tartrate 12.5 mg PO BID@0500,17010/14/18 10/16/19 Multivit-Min/FA/Lycopen/Lutein 1 tab PO DAILY@0500 10/14/18 10/16/19 [Centrum Silver Tablet] Atorvastatin [Lipitor] 80 mg PO HS@1700 10/16/19 10/16/19 Allergies Allergy/AdvReac Type Severity Reaction Status Date / Time iodine Allergy Anaphylaxis Verified 10/16/19 21:39 Review of Systems ROS Statement: Those systems with pertinent positive or pertinent negative responses have been documented in the HPI. ROS Other: All systems not noted in ROS Statement are negative. Past Medical History Past Medical History: Atrial Fibrillation, Hypertension, Syncope Additional Past Medical History / Comment(s): SEE DR KIDD H&P History of Any Multi-Drug Resistant Organisms: None Reported Past Surgical History: Bariatric Surgery, Heart Catheterization With Stent, Orthopedic Surgery Additional Past Surgical History / Comment(s): GASTRIC SLEEVE, LEFT KNEE SX, uvula surgery Past Anesthesia/Blood Transfusion Reactions: Previous Problems w/ Anesthesia Additional Past Anesthesia/Blood Transfusion Reaction / Comment(s): STATES TAKES LONGER TO WAKE UP Past Psychological History: No Psychological Hx Reported Smoking Status: Never smoker Past Alcohol Use History: None Reported Past Drug Use History: None Reported - Past Family History Father Family Medical History: Deep Vein Thrombosis (DVT) General Exam Limitations: no limitations Course Vital Signs 10/16/19 10/16/19 10/16/19 19:48 20:10 20:15 Temperature 98.3 F Pulse Rate 80 64 56 L Respiratory 18 18 18 Rate Blood Pressure 203/133 99/74 100/65 O2 Sat by Pulse 98 97 95 Oximetry 10/16/19 10/16/19 20:26 21:08 Temperature Pulse Rate 62 59 L Respiratory 20 18 Rate Blood Pressure 138/93 183/99 O2 Sat by Pulse 97 100 Oximetry Medical Decision Making - Lab Data Result diagrams: 10/16/19 20:03 10/16/19 20:03 Lab Results 10/16/19 10/16/19 10/16/19 Range/Units 20:03 20:03 20:03 WBC 10.7 H (3.8-10.6) k/uL RBC 5.05 (4.30-5.90) m/uL Hgb 15.2 (13.0-17.5) gm/dL Hct 46.7 (39.0-53.0) % MCV 92.5 (80.0-100.0) fL MCH 30.2 (25.0-35.0) pg MCHC 32.6 (31.0-37.0) g/dL RDW 12.9 (11.5-15.5) % Plt Count 236 (150-450) k/uL Neutrophils % 58 % Lymphocytes % 25 % Monocytes % 7 % Eosinophils % 8 % Basophils % 1 % Neutrophils # 6.2 (1.3-7.7) k/uL Lymphocytes # 2.7 (1.0-4.8) k/uL Monocytes # 0.7 (0-1.0) k/uL Eosinophils # 0.8 H (0-0.7) k/uL Basophils # 0.1 (0-0.2) k/uL PT 9.9 (9.0-12.0) sec INR 0.9 (<1.2) APTT 23.2 (22.0-30.0) sec D-Dimer 0.72 H (<0.60) mg/L FEU Sodium 139 (137-145) mmol/L Potassium 3.9 (3.5-5.1) mmol/L Chloride 103 (98-107) mmol/L Carbon Dioxide 28 (22-30) mmol/L Anion Gap 8 mmol/L BUN 12 (9-20) mg/dL Creatinine 0.78 (0.66-1.25) mg/dL Est GFR (CKD-EPI)AfAm >90 (>60 ml/min/1.73 sqM) Est GFR (CKD-EPI)NonAf >90 (>60 ml/min/1.73 sqM) Glucose 100 H (74-99) mg/dL Calcium 9.7 (8.4-10.2) mg/dL Magnesium 2.0 (1.6-2.3) mg/dL Total Bilirubin 0.7 (0.2-1.3) mg/dL AST 29 (17-59) U/L ALT 32 (4-49) U/L Alkaline Phosphatase 84 (38-126) U/L Troponin I (0.000-0.034) ng/mL NT-Pro-B Natriuret Pep pg/mL Total Protein 7.0 (6.3-8.2) g/dL Albumin 4.2 (3.5-5.0) g/dL Lipase 141 (23-300) U/L 10/16/19 10/16/19 Range/Units 20:03 20:03 WBC (3.8-10.6) k/uL RBC (4.30-5.90) m/uL Hgb (13.0-17.5) gm/dL Hct (39.0-53.0) % MCV (80.0-100.0) fL MCH (25.0-35.0) pg MCHC (31.0-37.0) g/dL RDW (11.5-15.5) % Plt Count (150-450) k/uL Neutrophils % % Lymphocytes % % Monocytes % % Eosinophils % % Basophils % % Neutrophils # (1.3-7.7) k/uL Lymphocytes # (1.0-4.8) k/uL Monocytes # (0-1.0) k/uL Eosinophils # (0-0.7) k/uL Basophils # (0-0.2) k/uL PT (9.0-12.0) sec INR (<1.2) APTT (22.0-30.0) sec D-Dimer (<0.60) mg/L FEU Sodium (137-145) mmol/L Potassium (3.5-5.1) mmol/L Chloride (98-107) mmol/L Carbon Dioxide (22-30) mmol/L Anion Gap mmol/L BUN (9-20) mg/dL Creatinine (0.66-1.25) mg/dL Est GFR (CKD-EPI)AfAm (>60 ml/min/1.73 sqM) Est GFR (CKD-EPI)NonAf (>60 ml/min/1.73 sqM) Glucose (74-99) mg/dL Calcium (8.4-10.2) mg/dL Magnesium (1.6-2.3) mg/dL Total Bilirubin (0.2-1.3) mg/dL AST (17-59) U/L ALT (4-49) U/L Alkaline Phosphatase (38-126) U/L Troponin I <0.012 (0.000-0.034) ng/mL NT-Pro-B Natriuret Pep 82 pg/mL Total Protein (6.3-8.2) g/dL Albumin (3.5-5.0) g/dL Lipase (23-300) U/L Disposition Clinical Impression: Epigastric pain Disposition: ADMITTED IP TO THIS [facility] Condition: Fair Referrals: Lloyd Lindsay DO [Primary Care Provider] - 1-2 days Decision Time: 22:19
[2019-10-16 20:17] LABS: ALT 32 U/L (4-49); AST 29 U/L (17-59); African American GFR (CKD) >90 (>60 ml/min/1.73 sqM); Albumin 4.2 g/dL (3.5-5.0); Alkaline Phosphatase 84 U/L (38-126); Anion Gap 8 mmol/L; Blood Urea Nitrogen 12 mg/dL (9-20); Calcium 9.7 mg/dL (8.4-10.2); Carbon Dioxide 28 mmol/L (22-30); Chloride 103 mmol/L (98-107); Glucose 100 mg/dL (74-99); Non-African American GFR(CKD) >90 (>60 ml/min/1.73 sqM); Potassium 3.9 mmol/L (3.5-5.1); Sodium 139 mmol/L (137-145); Total Bilirubin 0.7 mg/dL (0.2-1.3)
[2019-10-16 20:26] LABS: INR 0.9 (<1.2); Partial Thromboplastin Time 23.2 sec (22.0-30.0); Prothrombin Time 9.9 sec (9.0-12.0)
[2019-10-16] MEDS ORDERED: methylPREDNISolone SOD SUCCI 125 MG/2 ML VIAL IV STA (20:32)
[2019-10-16] MEDS ORDERED: diphenhydrAMINE 50 MG/ML 1 ML VIAL IVP STA (20:32)
[2019-10-16] MEDS ORDERED: FAMOTIDINE 20 MG/2 ML VIAL IV STA (20:32)
--- NOTE | 2019-10-16 20:34 | XR ---
EXAMINATION TYPE: XR chest 1V portable DATE OF EXAM: 10/16/2019 COMPARISON: 11/14/2016 HISTORY: Chest pain and dizziness TECHNIQUE: FINDINGS: There is poor inspiration. There is some coarse interstitial density in the lower lung fiel ds. There are no hilar masses. Costophrenic angles are clear. Bony thorax is intact. There are chest leads. IMPRESSION: Inspiration decreased compared to old exam. Increased interstitial markings without obvio us heart failure.
[2019-10-16 20:38] LABS: D-Dimer 0.72 mg/L FEU (<0.60)
[2019-10-16] MEDS ORDERED: MORPHINE SULFATE 4 MG/ML SYRINGE IV STA (21:20)
--- NOTE | 2019-10-16 21:35 | CT ---
EXAMINATION TYPE: CT angio thor/abd pel aorta DATE OF EXAM: 10/16/2019 COMPARISON: None HISTORY: Chest pains CT DLP: 4858.6 mGycm Automated exposure control for dose reduction was used. CONTRAST: Performed without and with IV Contrast, patient injected with 100 mL of Isovue 370. Images were obtained from the thoracic inlet to the floor the pelvis without and with IV contrast. Th ere are 3-D post processed images. The lungs are clear of consolidation. There is slight increased interstitial density in the posterior lung martinez. Heart appears enlarged. There is no pericardial effusion. There is no pleural effusion. There is no evidence of a pulmonary mass. Thoracic aorta is intact. There is no aneurysm or dissecti on. There are no hilar masses. There is no evidence of filling defect in the pulmonary arteries. There is hiatal hernia. There is apparent previous gastric surgery. Liver spleen pancreas gallbladder appear normal. Bile ducts are not dilated. There is no adrenal mass. Kidneys show normal size and co ntour. There is 3 cm cortical cyst lateral right kidney. There is 3 cm cortical cyst lower pole left kidney. Ureters are not dilated. There is 3 mm calculus upper pole right kidney. There is 1 mm calcul i scattered in both kidneys. There is no retroperitoneal adenopathy. Appendix is posterior and appear s normal. Ureters are not dilated. Bladder distends smoothly. There is no inguinal hernia. There is no mesenteric edema. There is no ascites or free air. There is no sign of a bowel obstructio n. Abdominal aorta has normal size and contour. There is no aneurysm or dissection. There is patency of the celiac artery and superior mesenteric artery. There is bilateral wide patency of the renal arteri es. There is arterial flow in the iliac and femoral arteries. I see no evidence of hemodynamic stenos is. Thoracic and lumbar spine appear intact. There is no compression fracture. Bony pelvis is intact. The ribs appear intact. IMPRESSION: Minimal pulmonary fibrotic changes. No evidence of pulmonary embolism. Previous bariatric gastric surgery. No angiographic abnormality of the chest abdomen pelvis. Nonobstructing renal calculi. Bilateral renal cortical cysts.
[2019-10-16] MEDS ORDERED: MAG HYDROX/AL HYDROX/SIMETH 30 ML, HYOSCYAMINE ELIXIR 10 ML, LIDOCAINE VISCOUS 2% 10 ML PO STA ×3 (21:55)
[2019-10-16] MEDS ORDERED: LABETALOL 5 MG/ML VIAL MDV IVP STA (22:34)
[2019-10-17] MEDS ORDERED: HYDROmorphone 0.5 MG/0.5 ML SYRINGE IVP PRN (00:41)
[2019-10-17] MEDS ORDERED: hydrALAZINE HCL 20 MG/ML 1 ML VIAL IVP PRN (00:41)
[2019-10-17] MEDS ORDERED: TEMAZEPAM 15 MG CAP PO PRN (00:41)
[2019-10-17] MEDS ORDERED: HYDROcodone/APAP 5-325MG 1 EACH TAB PO PRN (00:41)
[2019-10-17] MEDS ORDERED: ALPRAZolam 0.25 MG TAB PO PRN (00:42)
[2019-10-17] MEDS: PANTOPRAZOLE 40 MG/10 ML VIAL IVP SCH ×2 (00:59→08:18)
[2019-10-17] MEDS: METOPROLOL TARTRATE 25 MG TAB PO SCH ×2 (05:05→15:57)
[2019-10-17] MEDS: LOSARTAN 50 MG TAB PO SCH (05:05)
[2019-10-17 07:46] LABS: ALT 29 U/L (4-49); AST 27 U/L (17-59); African American GFR (CKD) >90 (>60 ml/min/1.73 sqM); Albumin 3.8 g/dL (3.5-5.0); Alkaline Phosphatase 84 U/L (38-126); Anion Gap 7 mmol/L; Blood Urea Nitrogen 11 mg/dL (9-20); Calcium 9.4 mg/dL (8.4-10.2); Carbon Dioxide 28 mmol/L (22-30); Chloride 103 mmol/L (98-107); Cholesterol 127 mg/dL (<200); Glucose 162 mg/dL (74-99); HDL Cholesterol 56 mg/dL (40-60); LDL Cholesterol,Calculated 64 mg/dL (0-99); Non-African American GFR(CKD) >90 (>60 ml/min/1.73 sqM); Potassium 5.4 mmol/L (3.5-5.1); Sodium 138 mmol/L (137-145); Total Bilirubin 0.8 mg/dL (0.2-1.3); Total Protein 6.6 g/dL (6.3-8.2); Triglycerides 33 mg/dL (<150)
[2019-10-17] MEDS: ASPIRIN 325 MG TAB PO SCH (08:17)
--- NOTE | 2019-10-17 08:31 | HP ---
HISTORY AND PHYSICAL DATE OF SERVICE: 10/16/2019 I am covering for Dr. Lindsay. CHIEF COMPLAINT: Chest pain. HISTORY OF PRESENT ILLNESS: This 59-year-old gentleman with the past medical history of multiple medical problems including atrial fibrillation, hypertension, syncope, history of bariatric surgery, history of CAD/stent being followed by Dr. Lloyd Lindsay in the outpatient setting is complaining of sudden onset of significant chest pain while at the family gathering. The patient was sitting in a chair and developed significant substernal and epigastric pressure which was 10/10 in intensity. Patient came to [facility] and the patient also had multiple scans, which showed no evidence of dissection. Patient was given some pain medications. The pain is improving at this time, however, the blood pressure is also elevated. Patient admitted for further evaluation and treatment. Initial labs showed WBC 10.7 and D-dimer was 0.[address] of the chest with angio showed no evidence of pulmonary embolism, minimal fibrotic changes and no angiographic abnormalities also noted. The patient had nonobstructive renal calculi. There is no history of fever, rigors, chills at this time. PAST MEDICAL HISTORY: Atrial fibrillation, history of hypertension, syncope, bariatric surgery, CAD/stent. MEDICATIONS: Home medications are multivitamins 1 p.o. daily, metoprolol, Cozaar, cholecalciferol, Lipitor, aspirin. ALLERGIES: IODINE. FAMILY HISTORY: History of DVT in the family. SOCIAL HISTORY: No history of smoking. No history of alcohol intake. REVIEW OF SYSTEMS: ENT No history of diminished hearing or vision. CARDIOVASCULAR As mentioned earlier. RESPIRATORY No cough, no hemoptysis. GI No nausea, vomiting, or diarrhea. No dysuria or hematuria. NERVOUS No numbness or weakness. ALLERGY/IMMUNOLOGY No asthma or hayfever. MUSCULOSKELETAL As mentioned earlier. HEMATOLOGY/ONCOLOGY Negative. ENDOCRINE No history of diabetes or hypothyroidism. CONSTITUTIONAL As mentioned earlier. DERMATOLOGY Negative. RHEUMATOLOGY Negative, PSYCHIATRY As mentioned earlier. PHYSICAL EXAM: Patient is alert, oriented x3. The pulse is 59, blood pressure 183/90, respiration 18, temperature normal. Pulse ox 100% on 2 L. HEENT: Conjunctivae normal. Oral mucosa moist. NECK: No jugular venous distention. No lymph node enlargement. CARDIOVASCULAR: S1, S2, muffled. No S3, no S4, RESPIRATORY: Diminished breath sounds at the bases. No rhonchi, no crackles. ABDOMEN: Soft, obese. Mild diffuse tenderness in the epigastrium. LEGS: No edema, no swelling. NERVOUS SYSTEM: Higher functions mentioned earlier. Moves all four limbs. No focal motor or sensory deficits. LYMPHATICS: No lymph node in neck or axilla. SKIN: No rash. JOINTS: No active deforming arthropathy. LABS: WBC 9.7, troponin are noted. EKG nonspecific ST changes. CT scan reviewed. ASSESSMENT: 1. Chest pain, rule out coronary artery disease, rule out myocardial infarction. 2. Possible gastroesophageal reflux disease. 3. Hypertensive urgency. 4. Atrial fibrillation. 5. History of syncope. 6. Bariatric surgery. 7. History of cardiac ablation. 8. History of gastric sleeve. 9. Obesity with body mass index 43.4. 10.FULL CODE. RECOMMENDATIONS AND DISCUSSION: In this 59-year-old gentleman with multiple medical issues, at this time I recommend to continue current management and symptomatic treatment. Otherwise, cardiology consultation rule out myocardial infarction per protocol, p.r.n. medication for hypertension. Otherwise, resume the home medications. We will follow the patient closely. Prognosis guarded. Further recommendations to follow. MMODL / IJN: [id number] / MTDD
--- NOTE | 2019-10-17 11:28 | US ---
EXAMINATION TYPE: US gallbladder DATE OF EXAM: 10/17/2019 COMPARISON: CT CLINICAL HISTORY: Right upper quadrant pain. EXAM MEASUREMENTS: Liver Length: 11.8 cm Gallbladder Wall: 0.5 cm CBD: 0.4 cm Right Kidney: 11.4 x 5.8 x 5.7 cm Technically difficult study due to body habitus and midline bowel gas. Pancreas: not well visualized due to overlying bowel gas. Liver: wnl Gallbladder: thickened wall, distended at 11 cm. Evidence for sonographic Phillips's sign: No CBD: wnl Right Kidney: lower/lat cyst measures 2.9 x 3.4 x 3.3 cm IMPRESSION: 1. Gallbladder hydrops correlate for cholecystitis.
--- NOTE | 2019-10-17 11:36 | P.CRDCN ---
History of Present Illness Consult date: 10/17/19 History of present illness: This is a 59-year-old gentleman with history of recurrent syncopal episodes. In May 2017, patient had a cardiac catheterization to rule out underlying ischemic heart disease because of a syncopal episodes. He was found to have moderate to severe disease involving the LAD and had stent placement. Subsequently had EP study and ablation of atrial tachycardia. Since then hasn't had any episodes of syncope. He had a previous gastric bypass surgery and had some epigastric discomfort from time to time. His only Tums and antacids would help his pain. Yesterday he was having some epigastric and lower sternal chest pain after eating hotdog. This symptoms did not subside after taking Tums. He was concerned and came to the emergency room. He was treated with sublingual nitroglycerin which made his blood pressure go down rapidly and made him sweaty. The chest pain did not improve. Subsequently, he was given GI cocktail with improvement of symptoms. Since then patient has been stable. His cardiac enzymes are negative. His EKGs did not reveal any acute changes. His symptoms appear more and gastrointestinal. He will review his echocardiogram. If there are no segmental wall motion defects, patient could be discharged home. Outpatient evaluation stress test to be done. Patient will see Dr. sandra in one week Review of Systems As per the chart Past Medical History Past Medical History: Atrial Fibrillation, Hypertension, Syncope Additional Past Medical History / Comment(s): SEE DR SANDRA H&P History of Any Multi-Drug Resistant Organisms: None Reported Past Surgical History: Bariatric Surgery, Cardiac Ablation, Heart Catheterization With Stent, Orthopedic Surgery Additional Past Surgical History / Comment(s): GASTRIC SLEEVE, LEFT KNEE SX, uvula surgery, 1 stent Past Anesthesia/Blood Transfusion Reactions: Previous Problems w/ Anesthesia Additional Past Anesthesia/Blood Transfusion Reaction / Comment(s): STATES TAKES LONGER TO WAKE UP Date of Last Stent Placement:: 2018 Past Psychological History: No Psychological Hx Reported Smoking Status: Never smoker Past Alcohol Use History: None Reported Past Drug Use History: None Reported - Past Family History Father Family Medical History: Deep Vein Thrombosis (DVT) Medications and Allergies Home Medications Medication Instructions Recorded Confirmed Type Cholecalciferol [Vitamin D3 (25 5,000 unit PO DAILY@0500 11/14/10/16/19 History Mcg = 1000 Iu)] Aspirin [Adult Low Dose Aspirin EC] 81 mg PO HS@1700 05/12/17 10/16/19 History Losartan [Cozaar] 50 mg PO DAILY@0500 05/12/17 10/16/19 History Metoprolol Tartrate 12.5 mg PO BID@0500,1700 10/14/18 10/16/19 History Multivit-Min/FA/Lycopen/Lutein 1 tab PO DAILY@0500 10/14/18 10/16/19 History [Centrum Silver Tablet] Atorvastatin [Lipitor] 80 mg PO HS@1700 10/16/19 10/16/19 History Allergies Allergy/AdvReac Type Severity Reaction Status Date / Time iodine Allergy Anaphylaxis Verified 10/16/19 21:39 Physical Exam Vitals: Vital Signs Temp Pulse Pulse Resp BP BP Pulse Ox 10/17/19 08:00 97.8 F 59 L 18 137/79 96 10/17/19 03:53 98.7 F 88 18 143/75 97 10/17/19 02:11 136/77 10/17/19 00:00 98.4 F 64 20 188/110 98 10/16/19 22:32 61 20 181/114 97 10/16/19 21:08 59 L 18 183/99 100 10/16/19 20:26 62 20 138/93 97 10/16/19 20:15 56 L 18 100/65 95 10/16/19 20:10 64 18 99/74 97 10/16/19 19:48 98.3 F 80 18 203/133 98 Intake and Output 10/16/19 10/17/19 10/17/19 22:59 06:59 14:59 Output Total 575 Balance -575 Output: Urine 575 Other: # Voids 1 Weight 145.15 kg 162 kg GENERAL EXAM: Patient is alert and oriented and doesn't appear to be in any acute distress HEENT: Normocephalic. Normal reaction of pupils, equal size, normal range of extraocular motion. No erythema or exudates in the throat. NECK: No masses, no nuchal rigidity. CHEST: No chest wall deformity. LUNGS: Equal air entry with no crackles or wheeze. HEART: S1 and S2 normal with no audible mumurs or gallops. Regular rhythm, femorals equal on both sides.. ABDOMEN: No hepatosplenomegaly, normal bowel sounds, no guarding or rigidity. SKIN: No rashes CENTRAL NERVOUS SYSTEM: No focal deficits. EXTREMITIES: No cyanosis, clubbing or edema. Results 10/16/19 20:03 10/17/19 06:59 Cardiac Enzymes 10/16/19 10/16/19 10/16/19 Range/Units 20:03 20:03 23:10 AST 29 (17-59) U/L Troponin I <0.012 <0.012 (0.000-0.034) ng/mL 10/17/19 10/17/19 Range/Units 01:10 06:59 AST 27 (17-59) U/L Troponin I <0.012 (0.000-0.034) ng/mL Coagulation 10/16/19 Range/Units 20:03 PT 9.9 (9.0-12.0) sec APTT 23.2 (22.0-30.0) sec Lipids 10/17/19 Range/Units 06:59 Triglycerides 33 (<150) mg/dL Cholesterol 127 (<200) mg/dL HDL Cholesterol 56 (40-60) mg/dL CBC 10/16/19 Range/Units 20:03 WBC 10.7 H (3.8-10.6) k/uL RBC 5.05 (4.30-5.90) m/uL Hgb 15.2 (13.0-17.5) gm/dL Hct 46.7 (39.0-53.0) % Plt Count 236 (150-450) k/uL Comprehensive Metabolic Panel 10/16/19 10/17/19 Range/Units 20:03 06:59 Sodium 139 138 (137-145) mmol/L Potassium 3.9 5.4 H (3.5-5.1) mmol/L Chloride 103 103 (98-107) mmol/L Carbon Dioxide 28 28 (22-30) mmol/L BUN 12 11 (9-20) mg/dL Creatinine 0.78 0.63 L (0.66-1.25) mg/dL Glucose 100 H 162 H (74-99) mg/dL Calcium 9.7 9.4 (8.4-10.2) mg/dL AST 29 27 (17-59) U/L ALT 32 29 (4-49) U/L Alkaline Phosphatase 84 84 (38-126) U/L Total Protein 7.0 6.6 (6.3-8.2) g/dL Albumin 4.2 3.8 (3.5-5.0) g/dL Current Medications Generic Name Dose Route Start Last Admin Trade Name Freq PRN Reason Stop Dose Admin Hydrocodone Bitart/Acetaminophen 1 each 10/17/19 00:41 [place] 5-325 PO Q6HR PRN Pain Alprazolam 0.25 mg 10/17/19 00:42 Xanax PO TID PRN Anxiety Aspirin 325 mg 10/17/19 09:00 10/17/19 08:17 Aspirin PO 325 mg DAILY VLAD Administration Atorvastatin Calcium 80 mg 10/17/19 17:00 Lipitor PO HS@1700 VLAD Hydralazine HCl 10 mg 10/17/19 00:41 10/17/19 00:59 Apresoline IVP 10 mg Q4HR PRN Administration Blood Pressure - High Hydromorphone HCl 0.5 mg 10/17/19 00:41 Dilaudid IVP Q3HR PRN Severe Pain Losartan Potassium 50 mg 10/17/19 05:00 10/17/19 05:05 Cozaar PO 50 mg DAILY@0500 VLAD Administration Metoprolol Tartrate 12.5 mg 10/17/19 05:00 10/17/19 05:05 Lopressor PO 12.5 mg BID@0500,1700 VLAD Administration Pantoprazole Sodium 40 mg 10/17/19 00:45 10/17/19 08:18 Protonix IVP 40 mg BID VLAD Administration Temazepam 15 mg 10/17/19 00:41 Restoril PO HS PRN Insomnia Intake and Output 10/16/19 10/17/19 10/17/19 22:59 06:59 14:59 Output Total 575 Balance -575 Output: Urine 575 Other: # Voids 1 Weight 145.15 kg 162 kg 10/16/19 20:03 10/17/19 06:59 EKG Interpretations (text) Sinus rhythm Assessment and Plan (1) Coronary artery disease Current Visit: Yes Status: Acute Code(s): I25.10 - ATHSCL HEART DISEASE OF [place] CORONARY ARTERY W/O ANG PCTRS SNOMED Code(s): 85782324 (2) Epigastric pain Current Visit: Yes Status: Acute Code(s): R10.13 - EPIGASTRIC PAIN SNOMED Code(s): 35097237 (3) History of atrial tachycardia Current Visit: Yes Status: Acute Code(s): Z86.79 - PERSONAL HISTORY OF OTHER DISEASES OF THE CIRCULATORY SYSTEM SNOMED Code(s): 293947942654751 (4) History of syncope Current Visit: Yes Status: Acute Code(s): Z87.898 - PERSONAL HISTORY OF OTHER SPECIFIED CONDITIONS SNOMED Code(s): 246139558339917 Plan: Patient is critically stable . Cardec enzymes are negative. If echocardiogram doesn't show any segmental wall motion defects, patient could be discharged home. Outpatient evaluation to be done by Dr. Sandra
--- NOTE | 2019-10-17 13:00 | P.GSCN ---
History of Present Illness Consult date: 10/17/19 History of present illness: CHIEF COMPLAINT: Epigastric abdominal pain HISTORY OF PRESENT ILLNESS: The patient is a 59 year old male who presents acutely to the emergency room for atypical chest pain including epigastric abdominal pain. His history is significant for sleeve gastrectomy 2014 which at that time he was 460 pounds. His bariatric surgeon is Dr. Rucker. He reports failure to follow-up in the bariatric center and has now gained at least 50 pound from grazing. He reports new gastroesophageal reflux disease following his sleeve gastrectomy. Total overall weight loss is over 100 pounds at present. Family is at bedside. He reports going to a [employer] and had macaroni salad, hot dogs and radishes. He thought he had indigestion unresponsive to Tums. He has a strong family history and personal history of cardiac disease including previous stent placement and ablation. As a result of his cardiac history, he presented to the emergency room. Cardiac workup thus far has been unremarkable for acute myocardial infarction. General surgery was consulted for further assessment regarding epigastric abdominal pain. I ordered a ultrasound of the gallbladder for further assessment. PAST MEDICAL HISTORY: See list and reviewed PAST SURGICAL HISTORY: See list and reviewed. Has sleeve gastrectomy in 2013. MEDICATIONS: See list and reviewed ALLERGIES: See list and reviewed SOCIAL HISTORY: See list and reviewed FAMILY HISTORY: See list and reviewed. Has family history of premature cardiac in his father in his 60s. REVIEW OF ORGAN SYSTEMS: CONSTITUTIONAL: No fevers or chills. Initial intentional weight loss 150 pounds now with 50 pound weight gain. EYES: Denies any trouble with vision. No glasses. HEENT: No difficulties with hearing. No nosebleeds. No difficulty swallowing. RESPIRATORY: Denies pneumonia. Denies any troubles with breathing or dyspnea on exertion. CARDIOVASCULAR: Past cardiac stent with catheterization including ablation for atrial fibrillation. GASTROINTESTINAL: Has gastroesophageal reflux disease Denies change in bowel habits and gas bloat. GENITOURINARY: Denies any blood in urine or increased urinary frequency. NEUROLOGICAL: Denies any numbness or tingling along the distal extremities. No seizure disorders or headaches. MUSCULOSKELETAL: Has back pain, stiffness or joint arthritis. SKIN: No current skin cancer. No rash. PSYCHIATRIC: Denies current depression or suicidal thoughts. ENDOCRINE: Denies current thyroid disorders. Denies any blood sugar glucose intolerance. HEME/LYMPHATIC: Denies any lumps and bumps around the neck. No recent deep venous thrombosis. ALLERGY/IMMUNOLOGY: No immunoglobulin therapy. No immune deficiencies. BREAST: Denies current breast lumps, pain or nipple discharge. PHYSICAL EXAM: VITALS: Reviewed CONSTITUTIONAL: Well developed and in no acute distress. EYES: Conjuctivae without sclera icterus. Pupils are equally round and reactive to light. Extraocular movements grossly intact. HEAD, EARS, NOSE, THROAT: Moist buccal mucosa. Head is atraumatic, normocephalic. Hears conversational speech. No nasal drainage. NECK: Supple. No JV distention. No thyroidomegaly. RESPIRATORY: Non-labored respirations and equal bilateral excursions. No gross wheezes. CARDIOVASCULAR: Palpable 2+ radial pulses. ABDOMEN: Soft. Protuberant. Minimal tenderness right upper quadrant and epigastrium. No peritonitis. LYMPH: No neck lymphadenopathy. MUSCULOSKELETAL: Nail and fingers with good capillary refill. No clubbing or cyanosis. SKIN: Warm and well perfused with good skin turgor. NEUROLOGIC: Cranial nerves II through XII grossly intact. Sensation upper and extremities intact. No focal or lateralizing signs. PSYCH: Appropriate affect. Alert and oriented to person, place and time. Displays appropriate insight. CLINCAL LABS: Reviewed. WBC on presentation 10.5. LFTs normal. Troponin is negative. Lipase at 141, normal RADIOLOGY: Report reviewed of CT angiogram of the chest negative for acute pulmonary embolism. STUDIES: Ultrasound the gallbladder independent review demonstrated thickened gallbladder wall including what appears to be some gallbladder sludge dependent portion at the infundibulum. Features consistent with sonography cholecystitis as patient also reported Phillips's sign at the time of my assessment. ASSESSMENT: 1. Atypical chest pain 2. Coronary artery disease with cardiac stent placement 3. Cholecystitis PLAN: 1. At the time of my assessment, patient was tolerating a regular diet without moderate abdominal pain. His acute symptoms is improving. 2. He does have history of sleeve gastrectomy for which gallbladder pathology is quite common. 3. As he symptomatic, cholecystectomy also described which may be done inpatient or outpatient. 4. In the interim, low-fat diet. Thank you for this kind consultation. Past Medical History Past Medical History: Atrial Fibrillation, Hypertension, Syncope Additional Past Medical History / Comment(s): SEE DR KIDD H&P History of Any Multi-Drug Resistant Organisms: None Reported Past Surgical History: Bariatric Surgery, Cardiac Ablation, Heart Catheterization With Stent, Orthopedic Surgery Additional Past Surgical History / Comment(s): GASTRIC SLEEVE, LEFT KNEE SX, uvula surgery, 1 stent Past Anesthesia/Blood Transfusion Reactions: Previous Problems w/ Anesthesia Additional Past Anesthesia/Blood Transfusion Reaction / Comm: STATES TAKES LONGER TO WAKE UP Date of Last Stent Placement:: 2017 Past Psychological History: No Psychological Hx Reported Smoking Status: Never smoker Past Alcohol Use History: None Reported Past Drug Use History: None Reported - Past Family History Father Family Medical History: Deep Vein Thrombosis (DVT) Medications and Allergies Home Medications Medication Instructions Recorded Confirmed Type Cholecalciferol [Vitamin D3 (25 5,000 unit PO DAILY@0500 11/14/16 10/16/19 History Mcg = 1000 Iu)] Aspirin [Adult Low Dose Aspirin EC] 81 mg PO HS@1700 05/12/17 10/16/19 History Losartan [Cozaar] 50 mg PO DAILY@0500 05/12/17 10/16/19 History Metoprolol Tartrate 12.5 mg PO BID@0500,1700 10/14/18 10/16/19 History Multivit-Min/FA/Lycopen/Lutein 1 tab PO DAILY@0500 10/14/18 10/16/19 History [Centrum Silver Tablet] Atorvastatin [Lipitor] 80 mg PO HS@1700 10/16/19 10/16/19 History Allergies Allergy/AdvReac Type Severity Reaction Status Date / Time iodine Allergy Anaphylaxis Verified 10/16/19 21:39 Surgical - Exam Vital Signs Temp Pulse Resp BP Pulse Ox 98.3 F 80 18 203/133 98 10/16/19 19:48 10/16/19 19:48 10/16/19 19:48 10/16/19 19:48 10/16/19 19:48 Results - Labs 10/16/19 20:03 10/17/19 06:59 Abnormal Lab Results - Last 24 Hours (Table) 10/16/19 10/16/19 10/16/19 Range/Units 20:03 20:03 20:03 WBC 10.7 H (3.8-10.6) k/uL Eosinophils # 0.8 H (0-0.7) k/uL D-Dimer 0.72 H (<0.60) mg/L FEU Potassium (3.5-5.1) mmol/L Creatinine (0.66-1.25) mg/dL Glucose 100 H (74-99) mg/dL 10/17/19 Range/Units 06:59 WBC (3.8-10.6) k/uL Eosinophils # (0-0.7) k/uL D-Dimer (<0.60) mg/L FEU Potassium 5.4 H (3.5-5.1) mmol/L Creatinine 0.63 L (0.66-1.25) mg/dL Glucose 162 H (74-99) mg/dL Diabetes panel 10/16/19 10/17/19 Range/Units 20:03 06:59 Sodium 139 138 (137-145) mmol/L Potassium 3.9 5.4 H (3.5-5.1) mmol/L Chloride 103 103 (98-107) mmol/L Carbon Dioxide 28 28 (22-30) mmol/L BUN 12 11 (9-20) mg/dL Creatinine 0.78 0.63 L (0.66-1.25) mg/dL Glucose 100 H 162 H (74-99) mg/dL Calcium 9.7 9.4 (8.4-10.2) mg/dL AST 29 27 (17-59) U/L ALT 32 29 (4-49) U/L Alkaline Phosphatase 84 84 (38-126) U/L Total Protein 7.0 6.6 (6.3-8.2) g/dL Albumin 4.2 3.8 (3.5-5.0) g/dL Triglycerides 33 (<150) mg/dL HDL Cholesterol 56 (40-60) mg/dL Calcium panel 10/16/19 10/17/19 Range/Units 20:03 06:59 Calcium 9.7 9.4 (8.4-10.2) mg/dL Albumin 4.2 3.8 (3.5-5.0) g/dL Pituitary panel 10/16/19 10/17/19 Range/Units 20:03 06:59 Sodium 139 138 (137-145) mmol/L Potassium 3.9 5.4 H (3.5-5.1) mmol/L Chloride 103 103 (98-107) mmol/L Carbon Dioxide 28 28 (22-30) mmol/L BUN 12 11 (9-20) mg/dL Creatinine 0.78 0.63 L (0.66-1.25) mg/dL Glucose 100 H 162 H (74-99) mg/dL Calcium 9.7 9.4 (8.4-10.2) mg/dL Adrenal panel 10/16/19 10/17/19 Range/Units 20:03 06:59 Sodium 139 138 (137-145) mmol/L Potassium 3.9 5.4 H (3.5-5.1) mmol/L Chloride 103 103 (98-107) mmol/L Carbon Dioxide 28 28 (22-30) mmol/L BUN 12 11 (9-20) mg/dL Creatinine 0.78 0.63 L (0.66-1.25) mg/dL Glucose 100 H 162 H (74-99) mg/dL Calcium 9.7 9.4 (8.4-10.2) mg/dL Total Bilirubin 0.7 0.8 (0.2-1.3) mg/dL AST 29 27 (17-59) U/L ALT 32 29 (4-49) U/L Alkaline Phosphatase 84 84 (38-126) U/L Total Protein 7.0 6.6 (6.3-8.2) g/dL Albumin 4.2 3.8 (3.5-5.0) g/dL Assessment and Plan (1) Morbid obesity due to excess calories Current Visit: Yes Status: Acute Code(s): E66.01 - MORBID (SEVERE) OBESITY DUE TO EXCESS CALORIES SNOMED Code(s): 857316357 (2) Obesity, morbid, BMI 40.0-49.9 Current Visit: Yes Status: Acute Code(s): E66.01 - MORBID (SEVERE) OBESITY DUE TO EXCESS CALORIES SNOMED Code(s): 953830090 (3) History of sleeve gastrectomy Current Visit: Yes Status: Acute Code(s): Z90.3 - ACQUIRED ABSENCE OF STOMACH [PART OF] SNOMED Code(s): 648577016602520 (4) Atrial fibrillation Current Visit: Yes Status: Acute Code(s): I48.91 - UNSPECIFIED ATRIAL FIBRILLATION SNOMED Code(s): 80765169 (5) Cholecystitis Current Visit: Yes Status: Acute Code(s): K81.9 - CHOLECYSTITIS, UNSPECIFIED SNOMED Code(s): 56355562 (6) Coronary artery disease Current Visit: Yes Status: Acute Code(s): I25.10 - ATHSCL HEART DISEASE OF [place] CORONARY ARTERY W/O ANG PCTRS SNOMED Code(s): 45075028 (7) Epigastric pain Current Visit: Yes Status: Acute Code(s): R10.13 - EPIGASTRIC PAIN SNOMED Code(s): 33091822
[2019-10-17] MEDS: LEVOFLOXACIN 750MG-D5W PMX 750 MG in DEXTROSE/WATER 1 150ML.BAG IVPB SCH (13:59)
[2019-10-17] MEDS: ATORVASTATIN 80 MG TAB PO SCH (15:57)
[2019-10-17] MEDS: PANTOPRAZOLE 40 MG TABLET PO SCH (20:13)
[2019-10-18] MEDS: LOSARTAN 50 MG TAB PO SCH (04:06)
[2019-10-18] MEDS: METOPROLOL TARTRATE 25 MG TAB PO SCH ×2 (04:06→16:58)
--- NOTE | 2019-10-18 04:42 | PN ---
PROGRESS NOTE DATE OF SERVICE: 10/17/2019 I am covering for Dr. Lindsay. This 59-year-old gentleman admitted with epigastric and chest pain. Also had ultrasound of the abdomen that showed gallbladder hydrops and possible acute cholecystitis. The patient was seen by Cardiology and as well as Surgery. Dr. Martel has seen the patient in the hospital. No chest pain. No palpitations. No fever. PHYSICAL EXAMINATION: On exam, alert and oriented x3. Pulse is 54, blood pressure 135/81, respiration 18, temperature 97.6, pulse ox 97% on room air HEENT: Conjunctivae normal. NECK: No jugular venous distention. CARDIOVASCULAR: S1, S2 muffled. RESPIRATORY: Breath sounds diminished at the bases. No rhonchi, no crackles. ABDOMEN: Soft. Minimal tenderness in the right upper quadrant. NERVOUS SYSTEM: No focal deficits. LABS: WBC 10.7, hemoglobin 15.2. Sodium 138, potassium 5.4. ASSESSMENT: 1. Lower chest pain, epigastric pain possible acute cholecystitis and gallbladder hydrops. 2. Gastroesophageal reflux disease. 3. Hypertensive urgency. 4. Atrial fibrillation. 5. History of syncope. 6. Mild hyperkalemia. 7. History of bariatric surgery. 8. History of cardiac ablation. 9. History of gastric sleeve. 10.Obesity with body mass index of 43.5. 11.FULL CODE. RECOMMENDATIONS AND DISCUSSION: I recommend to continue current medications, continue with symptomatic treatment. Otherwise, surgical evaluation appreciated. Pain medications. Empiric antibiotics. Otherwise, Dr. Lindsay will follow. MMODL / IJN: [id number] /
[2019-10-18 07:16] LABS: Basophils # (A) 0.1 k/uL (0-0.2); Basophils % (A) 0 %; Eosinophils # (A) 0.3 k/uL (0-0.7); Eosinophils % (A) 2 %; HCT 46.7 % (39.0-53.0); HGB 15.8 gm/dL (13.0-17.5); Lymphocytes # (A) 1.8 k/uL (1.0-4.8); Lymphocytes % (A) 13 %; MCH 32.1 pg (25.0-35.0); MCHC 33.9 g/dL (31.0-37.0); MCV 94.6 fL (80.0-100.0); Mean Platelet Volume 6.9; Monocytes # (A) 0.9 k/uL (0-1.0); Monocytes % (A) 7 %; Neutrophils # (A) 10.5 k/uL (1.3-7.7); Neutrophils % (A) 77 %; Platelet Count 218 k/uL (150-450); RBC 4.93 m/uL (4.30-5.90); RDW 13.2 % (11.5-15.5); WBC 13.8 k/uL (3.8-10.6)
[2019-10-18 08:07] LABS: African American GFR (CKD) >90 (>60 ml/min/1.73 sqM); Anion Gap 6 mmol/L; Blood Urea Nitrogen 15 mg/dL (9-20); Calcium 8.9 mg/dL (8.4-10.2); Carbon Dioxide 28 mmol/L (22-30); Chloride 103 mmol/L (98-107); Glucose 107 mg/dL (74-99); Non-African American GFR(CKD) >90 (>60 ml/min/1.73 sqM); Potassium 4.7 mmol/L (3.5-5.1); Sodium 137 mmol/L (137-145)
[2019-10-18] MEDS: ASPIRIN 325 MG TAB PO SCH ×2 (09:20→16:58)
--- NOTE | 2019-10-18 09:39 | P.PN ---
<Nahomi Garcia - Last Filed: 10/18/19 09:34> Subjective Progress Note Date: 10/18/19 CHIEF COMPLAINT: Abdominal pain HISTORY OF PRESENT ILLNESS: Patient examined this morning at the bedside. Patient reports he began having right upper quadrant pain around 3:00 in the morning. He states he was lying on his left side which seemed to help his pain a little bit. No nausea or vomiting. Patient states his pain was mostly in the epigastric region on Friday but has had no further epigastric pain. He reports eating taco salad, hot dogs, and baked beans on Friday. He reports having reflux like symptoms over the last 6 months. WBC 13.8. Vital signs stable. He is afebrile. PHYSICAL EXAM: VITAL SIGNS: Reviewed. GENERAL: Well-developed in no acute distress. HEENT: No sclera icterus. Extraocular movements grossly intact. Moist buccal mucosa. Head is atraumatic, normocephalic. ABDOMEN: Obese. Soft. Nondistended. Tenderness upon palpation of right upper quadrant. NEUROLOGIC: Alert and oriented. Cranial nerves II through XII grossly intact. ASSESSMENT: 1. Epigastric and right upper quadrant abdominal pain 2. Heartburn 3. Suspected cholecystitis PLAN: -Obtain HIDA scan -NPO -Await results of echocardiogram -Possible lap spenser this afternoon with Dr. Rucker Nurse practitioner note has been reviewed by physician. Signing provider agrees with the documented findings, assessment, and plan of care. Objective - Vital Signs Vital signs: Vital Signs Temp 97.7 F 10/18/19 09:04 Pulse 77 10/18/19 09:04 Resp 16 10/18/19 09:04 BP 144/64 10/18/19 09:04 Pulse Ox 98 10/18/19 09:04 Intake & Output 10/17/19 10/18/19 10/18/19 18:59 06:59 18:59 Intake Total 190 240 Output Total 850 1250 Balance -660 -1250 240 Weight 159.7 kg Intake: IV 10 0.9 10 Oral 180 240 Output: Urine 850 1250 Other: # Voids 1 1 - Labs CBC & Chem 7: 10/18/19 06:53 10/18/19 06:53 Labs: Abnormal Lab Results - Last 24 Hours (Table) 10/18/19 10/18/19 Range/Units 06:53 06:53 WBC 13.8 H (3.8-10.6) k/uL Neutrophils # 10.5 H (1.3-7.7) k/uL Glucose 107 H (74-99) mg/dL <Cristian Rucker - Last Filed: 10/18/19 17:10> Subjective As above. Patient with CAT scan and ultrasound showing gallbladder distention. Ultrasound showed thickening. No stone seen. HIDA scan performed to evaluate patency of the cystic duct and that study was normal. On examination patient does have right upper quadrant tenderness. Patient still will require cholecystectomy in my opinion. Continue cardiac workup. Anticipate stress test tomorrow. Laparoscopic cholecystectomy shortly following that or possibly shortly after discharge. Continue antibiotics. Objective - Vital Signs Vital signs: Vital Signs Temp 97.7 F 10/18/19 09:04 Pulse 74 10/18/19 16:00 Resp 16 10/18/19 16:00 BP 144/89 10/18/19 16:00 Pulse Ox 100 10/18/19 16:00 Intake & Output 10/17/19 10/18/19 10/18/19 18:59 06:59 18:59 Intake Total 190 240 Output Total 850 1250 400 Balance -660 -1250 -160 Weight 159.7 kg Intake: IV 10 0.9 10 Oral 180 240 Output: Urine 850 1250 400 Other: # Voids 1 1 - Labs CBC & Chem 7: 10/18/19 06:53 10/18/19 06:53 Labs: Abnormal Lab Results - Last 24 Hours (Table) 10/18/19 10/18/19 Range/Units 06:53 06:53 WBC 13.8 H (3.8-10.6) k/uL Neutrophils # 10.5 H (1.3-7.7) k/uL Glucose 107 H (74-99) mg/dL
--- NOTE | 2019-10-18 10:04 | ECHOF ---
Referral Reason:Chest pain and cardiomyopathy MEASUREMENTS -------- HEIGHT: 182.9 cm WEIGHT: 161.9 kg BP: RVIDd: 3.7 cm (< 3.3) IVSd: 1.5 cm (0.6 - 1.1) LVIDd: 4.1 cm (3.9 - 5.3) LVPWd: 1.6 cm (0.6 - 1.1) IVSs: 2.2 cm LVIDs: 2.4 cm LVPWs: 1.5 cm LA Diam: 4.0 cm (2.7 - 3.8) Ao Diam: 3.1 cm (2.0 - 3.7) AV Cusp: 2.1 cm (1.5 - 2.6) LA Diam: 4.7 cm (2.7 - 3.8) MV EXCURSION: 23.492 mm (> 18.000) MV EF SLOPE: 81 mm/s (70 - 150) EPSS: 0.3 cm MV E Reuben: 0.59 m/s MV DecT: 247 ms MV A Reuben: 0.58 m/s MV E/A Ratio: 1.02 RAP: 5.00 mmHg RVSP: 10.41 mmHg FINDINGS -------- Sinus rhythm. Morbid Obesity This was a techncally difficult study with suboptimal views, , Lumason utilized for enhancement of images. LV size, wall thickness and systolic function are normal, with an EF greater than 55%. The left pritesh tricular size is normal. The right ventricle is normal in size. The left atrial size is normal. The right atrial size is normal. 5.0mg OF Lumason UTLIZED: 2 OR MORE WALL SEGMENTS NOT VISUALIZED. The aortic valve was not well visualized. Mild mitral annular calcification present. Mild mitral regurgitation is present. Mild tricuspid regurgitation present. Right ventricular systolic pressure is normal at < 35 mmHg. The pulmonic valve was not well visualized. The aortic root size is normal. Echo free space represents a pericardial fat pad. CONCLUSIONS -------- 1. Morbid Obesity 2. This was a techncally difficult study with suboptimal views, , Lumason utilized for enhancement of images. 3. LV size, wall thickness and systolic function are normal, with an EF greater than 55%. 4. The left atrial size is normal. 5. 5.0mg OF Lumason UTLIZED: 2 OR MORE WALL SEGMENTS NOT VISUALIZED. 6. The aortic valve was not well visualized. 7. Mild mitral annular calcification present. 8. Mild mitral regurgitation is present. 9. Mild tricuspid regurgitation present. 10. Echo free space represents a pericardial fat pad. CALENDAR CONTROL CLERK [employer]LO[employer]ANK: Soraya Perez RDCS
--- NOTE | 2019-10-18 16:16 | NM ---
EXAMINATION TYPE: NM hepatobiliary wo EF DATE OF EXAM: 10/18/2019 COMPARISON: Ultrasound gallbladder 10/17/2019 HISTORY: Right upper quadrant pain TECHNIQUE: After the intravenous administration of 5 mCi Tc 99m Mebrofenin hepatobiliary scintigraphy is performed. Immediate images post injection. FINDINGS: Liver shows prompt homogenous radiopharmaceutical uptake. Biliary activity is identified at 5 minutes . Small bowel activity is identified at 5 minutes. Gallbladder activity is thought to be present at 1 5 minutes. There is superimposition of what is believed to be gallbladder over the confluence of the left and right hepatic ducts. IMPRESSION: No evidence of cystic duct obstruction
--- NOTE | 2019-10-18 16:48 | P.PN ---
Subjective Progress Note Date: 10/18/19 This 59-year-old gentleman is admitted with epigastric and lower sternal chest pain. Relieved with GI cocktail and was suggestive of GI pathology. Patient apparently had right upper quadrant pain. This suggest a possible cholecystitis. Patient is going to have a HIDA scan. From Cardec standpoint, patient is stable. He patient were to require any surgical procedure, I recommend a Lexiscan stress test to make sure doesn't have any progression of ischemic heart disease. Continue current medical therapy Objective - Vital Signs Vital signs: Vital Signs Temp 97.7 F 10/18/19 09:04 Pulse 71 10/18/19 12:00 Resp 16 10/18/19 12:00 BP 165/89 10/18/19 12:00 Pulse Ox 99 10/18/19 12:00 Intake & Output 10/17/19 10/18/19 10/18/19 18:59 06:59 18:59 Intake Total 190 240 Output Total 850 1250 400 Balance -660 -1250 -160 Weight 159.7 kg Intake: IV 10 0.9 10 Oral 180 240 Output: Urine 850 1250 400 Other: # Voids 1 1 - Exam GENERAL EXAM: Patient is alert and oriented and doesn't appear to be in any acute distress HEENT: Normocephalic. Normal reaction of pupils, equal size, normal range of extraocular motion. No erythema or exudates in the throat. NECK: No masses, no nuchal rigidity. CHEST: No chest wall deformity. LUNGS: Equal air entry with no crackles or wheeze. HEART: S1 and S2 normal with no audible mumurs or gallops. Regular rhythm, femorals equal on both sides.. ABDOMEN: No hepatosplenomegaly, normal bowel sounds, no guarding or rigidity. SKIN: No rashes CENTRAL NERVOUS SYSTEM: No focal deficits. EXTREMITIES: No cyanosis, clubbing or edema. - Labs CBC & Chem 7: 10/18/19 06:53 10/18/19 06:53 Labs: Abnormal Lab Results - Last 24 Hours (Table) 10/18/19 10/18/19 Range/Units 06:53 06:53 WBC 13.8 H (3.8-10.6) k/uL Neutrophils # 10.5 H (1.3-7.7) k/uL Glucose 107 H (74-99) mg/dL Assessment and Plan (1) Coronary artery disease Current Visit: Yes Status: Acute Code(s): I25.10 - ATHSCL HEART DISEASE OF [place] CORONARY ARTERY W/O ANG PCTRS SNOMED Code(s): 27537569 (2) Epigastric pain Current Visit: Yes Status: Acute Code(s): R10.13 - EPIGASTRIC PAIN SNOMED Code(s): 44610749 (3) History of atrial tachycardia Current Visit: Yes Status: Acute Code(s): Z86.79 - PERSONAL HISTORY OF OTHER DISEASES OF THE CIRCULATORY SYSTEM SNOMED Code(s): 771450390098744 (4) History of syncope Current Visit: Yes Status: Acute Code(s): Z87.898 - PERSONAL HISTORY OF OTHER SPECIFIED CONDITIONS SNOMED Code(s): 299302822985539 Plan: Patient is being evaluated for possible cholecystitis. Patient is to have some intermittent epigastric distress. Appears to be atypical. If he were to have any surgical procedure, I will recommend that patient have a Lexiscan stress test
[2019-10-18] MEDS: ATORVASTATIN 80 MG TAB PO SCH (16:58)
[2019-10-18] MEDS: LEVOFLOXACIN 750MG-D5W PMX 750 MG in DEXTROSE/WATER 1 150ML.BAG IVPB SCH (16:58)
[2019-10-18] MEDS: PANTOPRAZOLE 40 MG TABLET PO SCH (20:30)
[2019-10-19] MEDS: METOPROLOL TARTRATE 25 MG TAB PO SCH ×2 (03:48→16:56)
[2019-10-19] MEDS: LOSARTAN 50 MG TAB PO SCH (03:48)
[2019-10-19 06:13] LABS: Basophils % (A) 0 %; Eosinophils # (A) 0.5 k/uL (0-0.7); Eosinophils % (A) 4 %; HCT 46.3 % (39.0-53.0); HGB 15.4 gm/dL (13.0-17.5); Lymphocytes # (A) 1.7 k/uL (1.0-4.8); Lymphocytes % (A) 17 %; MCH 31.4 pg (25.0-35.0); MCHC 33.1 g/dL (31.0-37.0); MCV 94.9 fL (80.0-100.0); Mean Platelet Volume 7.1; Monocytes # (A) 0.8 k/uL (0-1.0); Monocytes % (A) 8 %; Neutrophils # (A) 7.3 k/uL (1.3-7.7); Neutrophils % (A) 70 %; Platelet Count 224 k/uL (150-450); RBC 4.88 m/uL (4.30-5.90); RDW 13.1 % (11.5-15.5); WBC 10.4 k/uL (3.8-10.6)
[2019-10-19] MEDS ORDERED: REGADENOSON 0.4 MG/5 ML SYRINGE IV ONE (09:22)
[2019-10-19] MEDS ORDERED: AMINOPHYLLINE 500 MG/20 ML VIAL IV PRN (09:22)
[2019-10-19] MEDS ORDERED: CAFFEINE CITRATE 60 MG/3 ML VIAL IV PRN (09:22)
[2019-10-19] MEDS: PANTOPRAZOLE 40 MG TABLET PO SCH ×2 (09:55→19:45)
--- NOTE | 2019-10-19 10:29 | P.PN ---
<Nahomi Garcia - Last Filed: 10/19/19 10:27> Subjective Progress Note Date: 10/19/19 CHIEF COMPLAINT: Abdominal pain HISTORY OF PRESENT ILLNESS: Patient examined this morning at the bedside. He denies abdominal pain. Denies nausea or vomiting. He is NPO and awaiting a stress test today. PHYSICAL EXAM: VITAL SIGNS: Reviewed. GENERAL: Well-developed in no acute distress. HEENT: No sclera icterus. Extraocular movements grossly intact. Moist buccal mucosa. Head is atraumatic, normocephalic. ABDOMEN: Obese. Soft. Nondistended. Minimal tenderness upon palpation of right upper quadrant. NEUROLOGIC: Alert and oriented. Cranial nerves II through XII grossly intact. ASSESSMENT: 1. Epigastric and right upper quadrant abdominal pain 2. Heartburn 3. Suspected cholecystitis PLAN: Patient scheduled for lexiscan stress test today May resume diet after stress test. Cholecystectomy to be scheduled in the future pending results of stress test Nurse practitioner note has been reviewed by physician. Signing provider agrees with the documented findings, assessment, and plan of care. Objective - Vital Signs Vital signs: Vital Signs Temp 97.6 F 10/19/19 03:52 Pulse 73 10/19/19 03:52 Resp 18 10/19/19 03:52 BP 114/68 10/19/19 03:52 Pulse Ox 95 10/19/19 03:52 Intake & Output 10/18/19 10/19/19 10/19/19 18:59 06:59 18:59 Intake Total 840 150 Output Total 400 600 Balance 440 -450 Weight 160.1 kg Intake: Intake, IV Titration 150 Amount Levofloxacin 750Mg-D5w 150 Pmx 750 mg In Dextrose/ Water 1 150ml.bag @ 100 mls/hr IVPB Q24H [facility] Rx#: [id number] Oral 840 Output: Urine 400 600 Other: # Voids 2 - Labs CBC & Chem 7: 10/19/19 05:58 10/18/19 06:53 <Cristian Rucker - Last Filed: 10/19/19 13:49> Subjective As above. Await stress test tomorrow morning. We'll likely discharge following that and plan elective cholecystectomy in the next 1-2 weeks. We'll reevaluate in a.m. Objective - Vital Signs Vital signs: Vital Signs Temp 98.1 F 10/19/19 12:00 Pulse 88 10/19/19 12:00 Resp 18 10/19/19 12:00 BP 127/73 10/19/19 12:00 Pulse Ox 97 10/19/19 12:00 Intake & Output 10/18/19 10/19/19 10/19/19 18:59 06:59 18:59 Intake Total 840 150 480 Output Total 400 600 Balance 440 -450 480 Weight 160.1 kg Intake: Intake, IV Titration 150 Amount Levofloxacin 750Mg-D5w 150 Pmx 750 mg In Dextrose/ Water 1 150ml.bag @ 100 mls/hr IVPB Q24H [facility] Rx#: [id number] Oral 840 480 Output: Urine 400 600 Other: Voiding Method Toilet # Voids 2 - Labs CBC & Chem 7: 10/19/19 05:58 10/18/19 06:53
--- NOTE | 2019-10-19 12:08 | CDI ---
Documentation Clarification Form Date: 10/19/2019 12:00:35 PM From: Alba Carpio RN, CCDS Admit Date: 10/18/2019 12:08:00 PM Patient Name: Carmelo Rausch Visit Number: [id number] ATTENTION: The Clinical Documentation Specialists (CDI) and [facility] Coding Staff appreciate your assistance in clarifying documentation. Please respond to the clarification below the line at the bottom and electronically sign. The CDI & [facility] Coding staff will review the response and follow-up if needed. Please note: Queries are made part of the Legal Health Record. If you have any questions, please contact the author of this message via ITS. Dr. Jagdish Evans Atrial Fibrillation is documented in the H&P and Consults and requires further specificity. History/Risk Factors: Atrial fib, HTN, Syncope, CAD, Stent Clinical Indicators: EKG/telemetry: NSR and SB Treatment: 10/15 Lebetalol 10 mg IVP OT Cozaar 50 mg PO QD Lopressor 12.5 mg PO BID Consults: Cardiology In your professional opinion, can you please clarify the type of Atrial Fibrillation, if known? Chronic/Permanent Paroxysmal Persistent Other, please specify Unable to determine Paraxysmal (Last Revision: July 2017) MTDD
[2019-10-19] MEDS: LEVOFLOXACIN 750 MG TAB PO SCH (13:18)
--- NOTE | 2019-10-19 16:07 | P.PN ---
Subjective Progress Note Date: 10/19/19 This is a 59-year-old gentleman with history of recurrent syncopal episodes. In May 2017 he underwent a cardiac catheterization to rule out underlying ischemic heart disease because of syncopal episodes and was found to have moderate to severe disease involving the LAD for which she underwent stenting. Subsequently he had an EP study with ablation of atrial tachycardia. Since that time he has had no further episodes of any syncope. He does have history of previous gastric bypass surgery and does get intermittent abdominal discomfort from time to time. Patient did have some epigastric discomfort for which she took Tums, because there is no relief with Tums he came to the emergency room for further evaluation and treatment. He was given a GI cocktail with improvement in his symptoms. Patient was also found to have suspected cholecystitis and the plan is to proceed with outpatient laparoscopic cholecystectomy. He underwent a HIDA scan yesterday that did not reveal evidence of cystic duct obstruction. Blood pressure 127/70 with a heart rate of 80, 97% on room air. White blood cell count 10.4, hemoglobin 15.4, platelet count 224. We did schedule the patient this morning for a Lexiscan stress test, but because the HIDA scan was performed yesterday this will not be able to be p erformed until tomorrow. On examining the patient today, he denies any chest pain breathing is stable. He is quite frustrated that he is still in the hospital, and that he didn't get any food since last night. He also stated that he would prefer to do a walking type stress test. We will change his Radha scan tomorrow to a stress Cardiolite. Objective - Vital Signs Vital signs: Vital Signs Temp 98.1 F 10/19/19 12:00 Pulse 88 10/19/19 12:00 Resp 18 10/19/19 12:00 BP 127/73 10/19/19 12:00 Pulse Ox 97 10/19/19 12:00 Intake & Output 10/18/19 10/19/19 10/19/19 18:59 06:59 18:59 Intake Total 840 150 480 Output Total 400 600 Balance 440 -450 480 Weight 160.1 kg Intake: Intake, IV Titration 150 Amount Levofloxacin 750Mg-D5w 150 Pmx 750 mg In Dextrose/ Water 1 150ml.bag @ 100 mls/hr IVPB Q24H [facility] Rx#: [id number] Oral 840 480 Output: Urine 400 600 Other: Voiding Method Toilet # Voids 2 - Exam GENERAL EXAM: Patient is alert and oriented and doesn't appear to be in any acute distress HEENT: Normocephalic. Normal reaction of pupils, equal size, normal range of e xtraocular motion. No erythema or exudates in the throat. NECK: No masses, no nuchal rigidity. CHEST: No chest wall deformity. LUNGS: Equal air entry with no crackles or wheeze. HEART: S1 and S2 normal with no audible mumurs or gallops. Regular rhythm, femorals equal on both sides.. ABDOMEN: No hepatosplenomegaly, normal bowel sounds, no guarding or rigidity. SKIN: No rashes CENTRAL NERVOUS SYSTEM: No focal deficits. EXTREMITIES: No cyanosis, clubbing or edema. - Labs CBC & Chem 7: 10/19/19 05:58 10/18/19 06:53 Assessment and Plan Plan: Assessment and plan #1 epigastric pain, atypical for acute coronary syndrome. Evidence of acute cholecystitis. Patient will be scheduled as an outpatient to undergo lapar oscopic cholecystectomy #2 hypertensive urgency #3 paroxysmal atrial fibrillation #4 history of syncope #5 coronary artery disease with prior stenting #6 history of cardiac ablation #7 history of gastric sleep surgery #8 hyperlipidemia Plan Echocardiogram with Doppler study was performed which revealed an ejection fraction of 55%. We will schedule the patient tomorrow for a stress Cardiolite. DNP note has been reviewed, I agree with a documented findings and plan of care. Patient was seen and examined.
[2019-10-19] MEDS: ASPIRIN 325 MG TAB PO SCH (16:56)
[2019-10-19] MEDS: ATORVASTATIN 80 MG TAB PO SCH (16:56)
--- NOTE | 2019-10-19 22:12 | P.PN ---
Subjective Progress Note Date: 10/18/19 Patient seen 10/18/2019 more comfortable without chest pain. He is undergoing evaluation today for possible choledocholithiasis. He denies any fever denies any nausea vomiting. Pain is worse after eating increasing gastro- intestinal discomfort. Objective - Vital Signs Vital signs: Vital Signs Temp 97.7 F 10/19/19 19:50 Pulse 72 10/19/19 20:00 Resp 18 10/19/19 19:50 BP 118/55 10/19/19 19:50 Pulse Ox 98 10/19/19 19:50 Intake & Output 10/19/19 10/19/19 10/20/19 06:59 18:59 06:59 Intake Total 150 720 Output Total 600 Balance -450 720 Weight 160.1 kg Intake: Intake, IV Titration 150 Amount Levofloxacin 750Mg-D5w 150 Pmx 750 mg In Dextrose/ Water 1 150ml.bag @ 100 mls/hr IVPB Q24H [facility] Rx#: [id number] Oral 720 Output: Urine 600 Other: Voiding Method Toilet # Voids 2 1 - Exam GENERAL: This is a -59 year-old in no apparent distress at the time of examination. Pleasant and cooperative. HEENT: Head is atraumatic, normocephalic. Pupils are equal, round, and reactive to light. Sclerae anicteric. Conjunctivae are clear. Mucus membranes of the mouth are moist. Neck is supple. RESPIRATORY: Clear to auscultation. No wheezes, rales, or rhonchi. No use of accessory muscles. CARDIOVASCULAR: Regular rate and rhythm. S1 and S2 noted. No systolic or diastolic murmur auscultated. No JVD noted. No S3 or S4 noted. GASTROINTESTINAL: No distention noted. Abdomen soft and round. Normal active bowel sounds auscultated x 4 quadrants. pain and tenderness noted upon palpation RUQ. INTEGUMENTARY: No cyanosis. No jaundice. No rashes noted. No cellulitis noted. EXTREMITIES: 2+ peripheral pulses. No evidence of peripheral edema. No calf tenderness noted. NEUROLOGIC: Cranial nerves II-XII intact. PSYCHIATRIC: Awake, alert, and oriented X 3. Appropriate affect. Intact judgement and insight. - Labs CBC & Chem 7: 10/19/19 05:58 10/18/19 06:53 Assessment and Plan (1) Atrial fibrillation Current Visit: Yes Status: Acute Code(s): I48.91 - UNSPECIFIED ATRIAL FIBRILLATION SNOMED Code(s): 77927181 (2) Cholecystitis Current Visit: Yes Status: Acute Code(s): K81.9 - CHOLECYSTITIS, UNSPECIFIED SNOMED Code(s): 79154374 (3) Coronary artery disease Current Visit: Yes Status: Acute Code(s): I25.10 - ATHSCL HEART DISEASE OF [place] CORONARY ARTERY W/O ANG PCTRS SNOMED Code(s): 87259064 (4) Epigastric pain Current Visit: Yes Status: Acute Code(s): R10.13 - EPIGASTRIC PAIN SNOMED Code(s): 71669617 (5) History of sleeve gastrectomy Current Visit: Yes Status: Acute Code(s): Z90.3 - ACQUIRED ABSENCE OF STOMACH [PART OF] SNOMED Code(s): 161322593954676 (6) Morbid obesity due to excess calories Current Visit: Yes Status: Acute Code(s): E66.01 - MORBID (SEVERE) OBESITY DUE TO EXCESS CALORIES SNOMED Code(s): 407989802 Plan: Continue with cardiac and surgical evaluation patient is currently comfortable and awaiting testing.
--- NOTE | 2019-10-19 22:19 | P.PN ---
Subjective Progress Note Date: 10/19/19 Patient to undergo a stress test today in preparation for pending laparoscopic cholecystectomy by Dr. Rucker.. He denies any shortness of breath or chest pain currently. He currently nothing by mouth awaiting stress test. Objective - Vital Signs Vital signs: Vital Signs Temp 97.7 F 10/19/19 19:50 Pulse 72 10/19/19 20:00 Resp 18 10/19/19 19:50 BP 118/55 10/19/19 19:50 Pulse Ox 98 10/19/19 19:50 Intake & Output 10/19/19 10/19/19 10/20/19 06:59 18:59 06:59 Intake Total 150 720 Output Total 600 Balance -450 720 Weight 160.1 kg Intake: Intake, IV Titration 150 Amount Levofloxacin 750Mg-D5w 150 Pmx 750 mg In Dextrose/ Water 1 150ml.bag @ 100 mls/hr IVPB Q24H [facility] Rx#: [id number] Oral 720 Output: Urine 600 Other: Voiding Method Toilet # Voids 2 1 - Exam GENERAL: This is a -59 year-old in no apparent distress at the time of examination. Pleasant and cooperative. HEENT: Head is atraumatic, normocephalic. Pupils are equal, round, and reactive to light. Sclerae anicteric. Conjunctivae are clear. Mucus membranes of the mouth are moist. Neck is supple. RESPIRATORY: Clear to auscultation. No wheezes, rales, or rhonchi. No use of accessory muscles. CARDIOVASCULAR: Regular rate and rhythm. S1 and S2 noted. No systolic or diastolic murmur auscultated. No JVD noted. No S3 or S4 noted. GASTROINTESTINAL: No distention noted. Abdomen soft and round. Normal active bowel sounds auscultated x 4 quadrants. pain and tenderness noted upon p alpation RUQ. INTEGUMENTARY: No cyanosis. No jaundice. No rashes noted. No cellulitis noted. EXTREMITIES: 2+ peripheral pulses. No evidence of peripheral edema. No calf tenderness noted. NEUROLOGIC: Cranial nerves II-XII intact. PSYCHIATRIC: Awake, alert, and oriented X 3. Appropriate affect. Intact judgement and insight. - Labs CBC & Chem 7: 10/19/19 05:58 10/18/19 06:53 Assessment and Plan (1) Atrial fibrillation Current Visit: Yes Status: Acute Code(s): I48.91 - UNSPECIFIED ATRIAL FIBRILLATION SNOMED Code(s): 05831195 (2) Cholecystitis Current Visit: Yes Status: Acute Code(s): K81.9 - CHOLECYSTITIS, UNSPECIFIED SNOMED Code(s): 39756604 (3) Coronary artery disease Current Visit: Yes Status: Acute Code(s): I25.10 - ATHSCL HEART DISEASE OF [place] CORONARY ARTERY W/O ANG PCTRS SNOMED Code(s): 84132208 (4) Epigastric pain Current Visit: Yes Status: Acute Code(s): R10.13 - EPIGASTRIC PAIN SNOMED Code(s): 63118976 (5) History of sleeve gastrectomy Current Visit: Yes Status: Acute Code(s): Z90.3 - ACQUIRED ABSENCE OF STOMACH [PART OF] SNOMED Code(s): 709871284155478 (6) Morbid obesity due to excess calories Current Visit: Yes Status: Acute Code(s): E66.01 - MORBID (SEVERE) OBESITY DUE TO EXCESS CALORIES SNOMED Code(s): 305683629 Plan: Continue with cardiac and surgical evaluation patient is currently comfortable and awaiting testing. If patient will be medically for possible laparoscopic cholecystectomy as recommended by surgery
[2019-10-20] MEDS: METOPROLOL TARTRATE 25 MG TAB PO SCH ×2 (04:04→17:16)
[2019-10-20] MEDS: LOSARTAN 50 MG TAB PO SCH (04:04)
[2019-10-20 07:53] LABS: Basophils # (A) 0.1 k/uL (0-0.2); Basophils % (A) 1 %; Eosinophils # (A) 0.5 k/uL (0-0.7); Eosinophils % (A) 5 %; HCT 46.2 % (39.0-53.0); HGB 15.2 gm/dL (13.0-17.5); Lymphocytes # (A) 1.6 k/uL (1.0-4.8); Lymphocytes % (A) 16 %; MCHC 32.9 g/dL (31.0-37.0); MCV 94.3 fL (80.0-100.0); Monocytes # (A) 0.8 k/uL (0-1.0); Monocytes % (A) 7 %; Neutrophils # (A) 7.4 k/uL (1.3-7.7); Neutrophils % (A) 71 %; Platelet Count 186 k/uL (150-450); RDW 12.9 % (11.5-15.5); WBC 10.5 k/uL (3.8-10.6)
[2019-10-20] MEDS: PANTOPRAZOLE 40 MG TABLET PO SCH ×2 (08:15→21:17)
--- NOTE | 2019-10-20 12:40 | NM ---
EXAMINATION TYPE: NM stress cardiolite complete DATE OF EXAM: 10/20/2019 COMPARISON: NONE HISTORY: Surgical clearance TECHNIQUE: After the intravenous administration of 9.6 mCi Tc 99m Sestamibi - Rest images obtained 5 5 minutes post injection. The patient exercised using a JOE protocol and 1 minute prior to peak e xercise was injected with 25.9 mCi Tc 99m Sestamibi - Stress images obtained 45 minutes post injectio n. FINDINGS: There is diminished radiotracer accumulation along the inferior lateral left ventricular wall on stre ss images. This has a more normal radiotracer distribution on the resting images. Finding appears bet ter visualized on the SPECT imaging than on the polar maps. Ejection fraction of 44% is low. There is some dyskinesia at the cardiac apex and gated wall motion. IMPRESSION: 1. Stress-induced ischemic change along the inferior lateral wall greater at the cardiac apex. 2. Low ejection fraction of 44%. 3. Dyskinesia of the cardiac apex A Red level critical message alert has been initiated for Jagdish Evans via the [employer] Only Critical Results System on 10/20/2019 12:38 PM. This message alert has been sent to Jagdish perales via the preferences provided by the clinician for the receipt of Radiology Critical Findings. [employer] Mobile age ID [id number].
--- NOTE | 2019-10-20 12:45 | EST ---
EXERCISE STRESS AGE: 59 SEX: M HT: 72" WT: 352 lbs. PROTOCOL: Cardiolite STAGE: 2 DURATION OF EXERCISE: 6:00 HEART RATE REST: 85 BLOOD PRESSURE REST: 145/97 MAXIMUM HEART RATE ACHIEVED: 154 MAXIMUM BLOOD PRESSURE: 211/109 85% MPHR: 135 100% MPHR: 159 METS: 7.3 INDICATIONS: Chest pain, surgical clearance. CLINICAL INFORMATION: Baseline rhythm is sinus mechanism, rate of 85, poor R-wave progression, normal intervals. Baseline blood pressure 145/97 mmHg. Patient exercised on Rolan protocol for 6 minutes, reaching peak rate 154 beats per minute which is equal to 97% maximum predicted heart rate. Peak blood pressure 211/109 mmHg. Test was terminated due to fatigue. There was no chest pain. Electrocardiograph monitoring revealed rare PVCs and couplets. There were 1 5 complex ventricular tachycardia early in recovery. There was no evidence of diagnostic ischemic ST deviation. Cardiolite was injected at peak exercise. CONCLUSION: 1. Average exercise tolerance with occasional PVCs and 1 5 complex ventricular tachycardia. 2. Non diagnostic electrocardiographic changes for ischemia. 3. Nuclear images will be reported separately. MMODL / IJN: [id number] / MTDJose
--- NOTE | 2019-10-20 13:48 | P.PN ---
Subjective Progress Note Date: 10/20/19 Patient to undergo a stress test today in preparation for pending laparoscopic cholecystectomy by Dr. Rucker.. He denies any shortness of breath or chest pain currently. He currently nothing by mouth awaiting stress test. 10/20/2019 Stress test pending for today. Denies chest pain, palpitations or shortness of breath. Complains of right upper quadrant tenderness. Vital signs stable. Objective - Vital Signs Vital signs: Vital Signs Temp 97.9 F 10/20/19 08:00 Pulse 95 10/20/19 12:00 Resp 18 10/20/19 12:00 BP 144/96 10/20/19 08:00 Pulse Ox 97 10/20/19 08:00 Intake & Output 10/19/19 10/20/19 10/20/19 18:59 06:59 18:59 Intake Total 720 Output Total 250 Balance 720 -250 Weight 157.9 kg 157.9 kg Intake: Oral 720 Output: Urine 250 Other: Voiding Method Toilet # Voids 1 2 - Exam GENERAL: This is a -59 year-old in no apparent distress at the time of examination. Pleasant and cooperative. HEENT: Head is atraumatic, normocephalic. Pupils are equal, round, and reactive to light. Sclerae anicteric. Conjunctivae are clear. Mucus membranes of the mouth are moist. Neck is supple. RESPIRATORY: Clear to auscultation. No wheezes, rales, or rhonchi. No use of accessory muscles. CARDIOVASCULAR: Regular rate and rhythm. S1 and S2 noted. No systolic or diastolic murmur auscultated. No JVD noted. No S3 or S4 noted. GASTROINTESTINAL: No distention noted. Abdomen soft and round. Normal active bowel sounds auscultated x 4 quadrants. pain and tenderness noted upon palpation RUQ. INTEGUMENTARY: No cyanosis. No jaundice. No rashes noted. No cellulitis noted. EXTREMITIES: 2+ peripheral pulses. No evidence of peripheral edema. No calf tenderness noted. NEUROLOGIC: Cranial nerves II-XII intact. PSYCHIATRIC: Awake, alert, and oriented X 3. Appropriate affect. Intact judgement and insight. - Labs CBC & Chem 7: 10/20/19 07:01 10/18/19 06:53 Assessment and Plan Assessment: (1) Atrial fibrillation Current Visit: Yes Status: Acute Code(s): I48.91 - UNSPECIFIED ATRIAL FIBRILLATION SNOMED Code(s): 61580850 (2) Cholecystitis Current Visit: Yes Status: Acute Code(s): K81.9 - CHOLECYSTITIS, UNSPECIFIED SNOMED Code(s): 30408170 (3) Coronary artery disease Current Visit: Yes Status: Acute Code(s): I25.10 - ATHSCL HEART DISEASE OF [place] CORONARY ARTERY W/O ANG PCTRS SNOMED Code(s): 66881078 (4) Epigastric pain Current Visit: Yes Status: Acute Code(s): R10.13 - EPIGASTRIC PAIN SNOMED Code(s): 59669451 (5) History of sleeve gastrectomy Current Visit: Yes Status: Acute Code(s): Z90.3 - ACQUIRED ABSENCE OF STOMACH [PART OF] SNOMED Code(s): 780134254084803 (6) Morbid obesity due to excess calories Current Visit: Yes Status: Acute Code(s): E66.01 - MORBID (SEVERE) OBESITY DUE TO EXCESS CALORIES SNOMED Code(s): 416977303 Plan: Continue current medication regime ,monitoring and symptomatic treatment. Stress test pending for today with potential DC pending results. Outpatient laparoscopic cholecystectomy planned for next week. The impression and plan of care has been dictated as directed. : I performed a history and examination of this patient, discussed the same with the dictator. I agree with the dictator's note ,documented as a scribe. Any additional findings or plans will be noted.
[2019-10-20] MEDS ORDERED: ATORVASTATIN 80 MG TAB PO STA (14:24)
[2019-10-20] MEDS ORDERED: SODIUM CHLORIDE 0.9% 1,000 ML in EMPTY BAG 1 BAG IV ONE (14:24)
[2019-10-20] MEDS ORDERED: ALPRAZolam 0.5 MG TAB PO PRN (14:24)
[2019-10-20] MEDS ORDERED: NITROGLYCERIN SL TABS 0.4 MG TAB SUBLINGUAL PRN (14:24)
[2019-10-20] MEDS ORDERED: ASPIRIN 325 MG TAB PO STA (14:24)
[2019-10-20] MEDS ORDERED: ALPRAZolam 0.25 MG TAB PO PRN (14:24)
[2019-10-20] MEDS: ATORVASTATIN 80 MG TAB PO SCH (14:38)
[2019-10-20] MEDS: ASPIRIN 325 MG TAB PO SCH (14:39)
[2019-10-20] MEDS: LEVOFLOXACIN 750 MG TAB PO SCH (15:02)
[2019-10-20] MEDS ORDERED: LIDOCAINE 1% INJ 10MG/ML (20 ML MDV) ONE (15:09)
[2019-10-20] MEDS ORDERED: HEPARIN SODIUM 1,000 UN/ML (10ML VL) ONE (15:09)
[2019-10-20] MEDS ORDERED: VERAPAMIL 2.5 MG/ML 2 ML AMP ONE (15:09)
[2019-10-20] MEDS ORDERED: IV FLUID CONTINUATION 950 ML IV ONE (15:15)
[2019-10-20] MEDS ORDERED: MIDAZOLAM 2 MG/2 ML VIAL IVP ONE (15:17)
[2019-10-20] MEDS ORDERED: LIDOCAINE 1% INJ 10MG/ML (20 ML MDV) SQ ONE (15:20)
[2019-10-20] MEDS: VERAPAMIL SYRINGE (5 MG/10 ML) INTRAARTER ONE ×2 (15:21→15:30)
[2019-10-20] MEDS ORDERED: HEPARIN SODIUM 1,000 UN/ML (10ML VL) IV ONE (15:23)
[2019-10-20] MEDS ORDERED: IOPAMIDOL-370 100ML BTL INJ ONE (15:29)
--- NOTE | 2019-10-20 15:36 | P.PN ---
Subjective Progress Note Date: 10/20/19 This is a 59-year-old gentleman with history of recurrent syncopal episodes. In May 2017 he underwent a cardiac catheterization to rule out underlying ischemic heart disease because of syncopal episodes and was found to have moderate to severe disease involving the LAD for which she underwent stenting. Subsequently he had an EP study with ablation of atrial tachycardia. Since that time he has had no further episodes of any syncope. He does have history of previous gastric bypass surgery and does get intermittent abdominal discomfort from time to time. Patient did have some epigastric discomfort for which she took Tums, because there is no relief with Tums he came to the emergency room for further evaluation and treatment. He was given a GI cocktail with improvement in his symptoms. Patient was also found to have suspected cholecystitis and the plan is to proceed with outpatient laparoscopic cholecystectomy. He underwent a HIDA scan yesterday that did not reveal evidence of cystic duct obstruction. Blood pressure 127/70 with a heart rate of 80, 97% on room air. White blood cell count 10.4, hemoglobin 15.4, platelet count 224. We did schedule the patient this morning for a Lexiscan stress test, but because the HIDA scan was performed yesterday this will not be able to be p erformed until tomorrow. On examining the patient today, he denies any chest pain breathing is stable. He is quite frustrated that he is still in the hospital, and that he didn't get any food since last night. He also stated that he would prefer to do a walking type stress test. We will change his Radha scan tomorrow to a stress Cardiolite. 10/20/2019 Patient seen and examined this morning, he underwent a stress test today which revealed stress-induced ischemic change along the inferior lateral wall greater at the apex. For this reason patient was advised to undergo cardiac catheterization today, the risks and the benefits were explained to the patient and his in detail and he was willing to proceed. He did have a small bite to eat this morning after returning from his stress test, after he ate he did get his episode of abdominal pain. Blood pressure 144/90 with a heart rate in the 80s to 90s, 97% on room air. White blood cell count 10.5, hemoglobin 15.2, platelet count 186. Objective - Vital Signs Vital signs: Vital Signs Temp 97.9 F 10/20/19 08:00 Pulse 95 10/20/19 12:00 Resp 18 10/20/19 12:00 BP 144/96 10/20/19 08:00 Pulse Ox 97 10/20/19 08:00 Intake & Output 10/19/19 10/20/19 10/20/19 18:59 06:59 18:59 Intake Total 720 75 Output Total 250 Balance 720 -250 75 Weight 157.9 kg 157.9 kg Intake: IV 75 Oral 720 Output: Urine 250 Other: Voiding Method Toilet # Voids 1 2 - Exam GENERAL EXAM: Patient is alert and oriented and doesn't appear to be in any acute distress HEENT: Normocephalic. Normal reaction of pupils, equal size, normal range of extraocular motion. No erythema or exudates in the throat. NECK: No masses, no nuchal rigidity. CHEST: No chest wall deformity. LUNGS: Equal air entry with no crackles or wheeze. HEART: S1 and S2 normal with no audible mumurs or gallops. Regular rhythm, femorals equal on both sides.. ABDOMEN: No hepatosplenomegaly, normal bowel sounds, no guarding or rigidity. SKIN: No rashes CENTRAL NERVOUS SYSTEM: No focal deficits. EXTREMITIES: No cyanosis, clubbing or edema. - Labs CBC & Chem 7: 10/20/19 07:01 10/18/19 06:53 Assessment and Plan Plan: Assessment and plan #1 epigastric pain, atypical for acute coronary syndrome. Evidence of acute cholecystitis. Patient will be scheduled as an outpatient to undergo laparoscopic cholecystectomy #2 hypertensive urgency #3 paroxysmal atrial fibrillation #4 history of syncope #5 coronary artery disease with prior stenting #6 history of cardiac ablation #7 history of gastric sleep surgery #8 hyperlipidemia Plan Patient had an abnormal nuclear stress test today and has been advised to undergo cardiac catheterization. This will be performed today by Dr. Harris, further recommendations will be based on those findings and the patient's overall clinical course. DNP note has been reviewed, I agree with a documented findings and plan of care. Patient was seen and examined.
[2019-10-20] MEDS ORDERED: RX INFO: IV CONTRAST WAS GIVEN 1 EACH MISC MISCELLANE PRN (15:37)
[2019-10-20] MEDS ORDERED: SODIUM CHLORIDE 0.9% 1,000 ML IV SCH (15:45)
--- NOTE | 2019-10-20 18:39 | PN ---
PROGRESS NOTE INTERVAL HISTORY: Patient was doing well. He underwent his stress test this morning. Following that, he ate some oatmeal for lunch and then had recurrent symptoms of right upper quadrant pain. He is afebrile. Vital signs have been stable. Abdomen: Soft, nondistended. Mild right upper quadrant tenderness. IMPRESSION/PLAN: Ollcb[age][id number]-old male with suspected acute cholecystitis. Patient with recurrent symptoms. Apparently his stress test was abnormal. This afternoon he went for cardiac catheterization. That was reportedly normal, thankfully. Will tentatively schedule this patient for laparoscopic, possible open cholecystectomy tomorrow. Risks of bleeding, infection, conversion to an open procedure, bile leak, CBD injury, retained CBD stone, possible findings of other etiology for the patient's pain. Patient understands and wishes to proceed. MMODL / IJN: [id number] /
--- NOTE | 2019-10-20 19:18 | CC ---
CARDIAC CATHETERIZATION REPORT DATE OF SERVICE: 10/20/2019 PERFORMING PHYSICIAN: Rohan Cabrera M.D. PROCEDURE PERFORMED: 1. Selective right and left coronary angiogram. 2. Left heart catheterization. INDICATION: This is a 59-year-old gentleman with coronary artery disease and prior stenting of the LAD who was admitted to the hospital with what seemed to be chest discomfort and underwent a stress test that came in to be abnormal. Because of that, a heart catheterization was advised. APPROACH: Right radial artery. COMPLICATIONS: None. LEVEL OF SEDATION: Moderate, with sedation length of 11 minutes. PROCEDURE DESCRIPTION: After obtaining informed consent, the patient was brought to the cardiac rags laborer. The right radial artery was cannulated using micropuncture technique. The micropuncture wire passed easily. Then I placed a 5-Arabic sheath at the right radial artery. After that I did selective right and left coronary angiogram using JR4 and JL3.5 catheters. Left heart catheterization was performed using 5-Arabic pigtail catheter. The procedure was completed without any complication. SELECTIVE CORONARY ANGIOGRAM: 1. The RCA is a large-caliber vessel. It is a dominant vessel. The RCA appeared to be angiographically normal. Distally it bifurcates into PDA and PLV branches. Both appeared to be angiographically normal. 2. The left main is angiographically normal. It furcates into left circumflex, ramus intermedius and left anterior descending artery. 3. The left circumflex is a medium-caliber vessel. It is a nondominant vessel and appeared to be angiographically normal. 4. The ramus intermedius is a large-caliber vessel and seems to be angiographically normal. 5. The LAD. The LAD in the proximal portion appeared to be normal. It gives rise to first and second diagonal branches. Both appeared to be angiographically normal. The LAD in the mid appeared to be stented and the stent is patent and the LAD distally appeared to be normal. 6. HEMODYNAMICS: The LVEDP was 10 mmHg without significant gradient across the aortic valve. CONCLUSION: 1. Patent stent in the mid left anterior descending artery. 2. Normal left ventricular end-diastolic pressure. MMODL / IJN: [id number] /
[2019-10-21] MEDS: LOSARTAN 50 MG TAB PO SCH (06:19)
[2019-10-21] MEDS: METOPROLOL TARTRATE 25 MG TAB PO SCH ×2 (06:19→16:07)
[2019-10-21] MEDS: LEVOFLOXACIN 750 MG TAB PO SCH ×2 (06:20→20:53)
[2019-10-21] MEDS: PANTOPRAZOLE 40 MG TABLET PO SCH ×2 (08:43→20:53)
[2019-10-21] MEDS ORDERED: DEXAMETHASONE SOD PHOSPHATE 10 MG/ML 1 ML VIAL IV ONE (12:10)
[2019-10-21] MEDS ORDERED: ONDANSETRON 4 MG/2 ML VIAL IVP ONE (12:10)
[2019-10-21] MEDS ORDERED: HYDROmorphone 0.5 MG/0.5 ML SYRINGE IVP PRN (12:10)
[2019-10-21] MEDS ORDERED: LACTATED RINGERS 1,000 ML IV SCH (12:10)
--- NOTE | 2019-10-21 12:22 | P.PN ---
Subjective Progress Note Date: 10/21/19 Patient to undergo a stress test today in preparation for pending laparoscopic cholecystectomy by Dr. Rucker.. He denies any shortness of breath or chest pain currently. He currently nothing by mouth awaiting stress test. 10/20/2019 Stress test pending for today. Denies chest pain, palpitations or shortness of breath. Complains of right upper quadrant tenderness. Vital signs stable. 10/31/2019 underwent a stress test yesterday reporting stress-induced ischemia along the inferior lateral wall greater at the apex. Upon returning from stress test consumed some oatmeal with recurrent right upper quadrant/mid epigastric abdominal pain .Proceeded with cardiac catheterization reporting patent stent in the mid left anterior descending artery, normal LV and diastolic pressure. Patient is currently NPO, scheduled for a laparoscopic cholecystectomy with Dr. Rucker today. Denies chest pain, palpitations or shortness of breath. Denies lightheadedness, dizziness or focal deficits. Objective - Vital Signs Vital signs: Vital Signs Temp 98.0 F 10/21/19 08:00 Pulse 70 10/21/19 08:00 Resp 15 10/21/19 08:00 BP 134/83 10/21/19 08:00 Pulse Ox 94 L 10/21/19 08:00 Intake & Output 10/20/19 10/21/19 10/21/19 18:59 06:59 18:59 Intake Total 315 Output Total 325 Balance 315 -325 Weight 157.9 kg 161 kg Intake: IV 75 Oral 240 Output: Urine 325 Other: Voiding Method Toilet # Voids 2 1 - Exam GENERAL: Sitting up in chair, no acute distress HEENT: Head is atraumatic, normocephalic. Pupils are equal, round, and reactive to light. Sclerae anicteric. Conjunctivae are clear. Mucus membranes of the mouth are moist. Neck is supple. RESPIRATORY: Clear to auscultation. No wheezes, rales, or rhonchi. No use of accessory muscles. CARDIOVASCULAR: Regular rate and rhythm. S1 and S2 noted. No systolic or diastolic murmur auscultated. No JVD noted. No S3 or S4 noted. GASTROINTESTINAL: No distention noted. Abdomen soft and round. Normal active bowel sounds auscultated x 4 quadrants. pain and tenderness noted upon palpation RUQ. INTEGUMENTARY: No cyanosis. No jaundice. No rashes noted. No cellulitis noted. EXTREMITIES: 2+ peripheral pulses. No evidence of peripheral edema. No calf tenderness noted. NEUROLOGIC: Cranial nerves II-XII intact. PSYCHIATRIC: Awake, alert, and oriented X 3. Appropriate affect. Intact judgement and insight. - Labs CBC & Chem 7: 10/20/19 07:01 10/18/19 06:53 Assessment and Plan Assessment: (1) Atrial fibrillation Current Visit: Yes Status: Acute Code(s): I48.91 - UNSPECIFIED ATRIAL FIBRILLATION SNOMED Code(s): 20498470 (2) acute Cholecystitis Current Visit: Yes Status: Acute Code(s): K81.9 - CHOLECYSTITIS, UNSPECIFIED SNOMED Code(s): 97831140 (3) Coronary artery disease, status post positive stress test, status post cardiac catheterization reporting patent stent in the mid LAD, normal LVend diastolic pressure. Current Visit: Yes Status: Acute Code(s): I25.10 - ATHSCL HEART DISEASE OF [place] CORONARY ARTERY W/O ANG PCTRS SNOMED Code(s): 28567423 (4) Epigastric pain Current Visit: Yes Status: Acute Code(s): R10.13 - EPIGASTRIC PAIN SNOMED Code(s): 33043283 (5) History of sleeve gastrectomy Current Visit: Yes Status: Acute Code(s): Z90.3 - ACQUIRED ABSENCE OF STOMACH [PART OF] SNOMED Code(s): 069925312368917 (6) Morbid obesity due to excess calories Current Visit: Yes Status: Acute Code(s): E66.01 - MORBID (SEVERE) OBESITY DUE TO EXCESS CALORIES SNOMED Code(s): 859262199 (7) hypertensive urgency Plan: Continue current medication regime ,monitoring and symptomatic treatment. NPO, Laparoscopic cholecystectomy pending. Discharge planning in progress for tomorrow. The impression and plan of care has been dictated as directed. : I performed a history and examination of this patient, discussed the same with the dictator. I agree with the dictator's note ,documented as a scribe. Any additional findings or plans will be noted.
[2019-10-21] MEDS ORDERED: HEPARIN SODIUM,PORCINE 5,000 UNIT/ML 1 ML VIAL ONE (12:27)
[2019-10-21] MEDS ORDERED: ceFAZolin 3 GM in SODIUM CHLORIDE 0.9% 100 ML IVPB ONE (12:28)
[2019-10-21] MEDS ORDERED: HEPARIN SODIUM,PORCINE 5,000 UNIT/ML 1 ML VIAL SQ STA (12:28)
[2019-10-21] MEDS ORDERED: ONDANSETRON 4 MG/2 ML VIAL ONE (12:28)
[2019-10-21] MEDS ORDERED: ROCURONIUM BROMIDE 10 MG/ML 5 ML VIAL IV ONE (13:16)
[2019-10-21] MEDS ORDERED: .MORPHINE SULFATE (INJ) 10 MG/ML SYRINGE ONE (13:16)
[2019-10-21] MEDS ORDERED: GLYCOPYRROLATE 0.2 MG/ML 2 ML VIAL ONE (13:16)
[2019-10-21] MEDS ORDERED: LIDOCAINE 1% INJ 10MG/ML (20 ML MDV) ONE (13:16)
[2019-10-21] MEDS ORDERED: fentaNYL (PF) 50 MCG/ML 2 ML AMP ONE (13:16)
[2019-10-21] MEDS ORDERED: ePHEDrine SULFATE/0.9% NACL/PF 50 MG/5 ML SYRINGE IV ONE (13:16)
[2019-10-21] MEDS ORDERED: PROPOFOL 10 MG/ML 20 ML VIAL IV ONE (13:16)
[2019-10-21] MEDS ORDERED: SUCCINYLCHOLINE CHLORIDE VIAL 200 MG/10 ML VIAL IV ONE (13:16)
[2019-10-21] MEDS ORDERED: KETOROLAC 30 MG/ML 1 ML VIAL ONE (13:16)
[2019-10-21] MEDS ORDERED: MIDAZOLAM 2 MG/2 ML VIAL ONE (13:16)
[2019-10-21] MEDS ORDERED: NEOSTIGMINE 1 MG/ML 10 ML VIAL ONE (13:16)
--- NOTE | 2019-10-21 13:29 | P.PN ---
Subjective Progress Note Date: 10/21/19 This is a 59-year-old gentleman with history of recurrent syncopal episodes. In May 2017 he underwent a cardiac catheterization to rule out underlying ischemic heart disease because of syncopal episodes and was found to have moderate to severe disease involving the LAD for which she underwent stenting. Subsequently he had an EP study with ablation of atrial tachycardia. Since that time he has had no further episodes of any syncope. He does have history of previous gastric bypass surgery and does get intermittent abdominal discomfort from time to time. Patient did have some epigastric discomfort for which she took Tums, because there is no relief with Tums he came to the emergency room for further evaluation and treatment. He was given a GI cocktail with improvement in his symptoms. Patient was also found to have suspected cholecystitis and the plan is to proceed with outpatient laparoscopic cholecystectomy. He underwent a HIDA scan yesterday that did not reveal evidence of cystic duct obstruction. Blood pressure 127/70 with a heart rate of 80, 97% on room air. White blood cell count 10.4, hemoglobin 15.4, platelet count 224. We did schedule the patient this morning for a Lexiscan stress test, but because the HIDA scan was performed yesterday this will not be able to be p erformed until tomorrow. On examining the patient today, he denies any chest pain breathing is stable. He is quite frustrated that he is still in the hospital, and that he didn't get any food since last night. He also stated that he would prefer to do a walking type stress test. We will change his Radha scan tomorrow to a stress Cardiolite. 10/20/2019 Patient seen and examined this morning, he underwent a stress test today which revealed stress-induced ischemic change along the inferior lateral wall greater at the apex. For this reason patient was advised to undergo cardiac catheterization today, the risks and the benefits were explained to the patient and his in detail and he was willing to proceed. He did have a small bite to eat this morning after returning from his stress test, after he ate he did get his episode of abdominal pain. Blood pressure 144/90 with a heart rate in the 80s to 90s, 97% on room air. White blood cell count 10.5, hemoglobin 15.2, platelet count 186. 10/21/2019 Patient underwent a cardiac catheterization yesterday which did not reveal any significantly obstructive coronary artery disease. He is scheduled today to undergo laparoscopic cholecystectomy. Overall the patient feels well, denies any chest discomfort in his breathing is stable. Objective - Vital Signs Vital signs: Vital Signs Temp 98.2 F 10/21/19 12:33 Pulse 74 10/21/19 12:33 Resp 16 10/21/19 12:33 BP 147/84 10/21/19 12:33 Pulse Ox 97 10/21/19 12:33 Intake & Output 10/20/19 10/21/19 10/21/19 18:59 06:59 18:59 Intake Total 315 100 Output Total 325 Balance 315 -325 100 Weight 157.9 kg 161 kg Intake: IV 75 100 Oral 240 Output: Urine 325 Other: Voiding Method Toilet # Voids 2 1 - Exam GENERAL EXAM: Patient is alert and oriented and doesn't appear to be in any acute distress HEENT: Normocephalic. Normal reaction of pupils, equal size, normal range of extraocular motion. No erythema or exudates in the throat. NECK: No masses, no nuchal rigidity. CHEST: No chest wall deformity. LUNGS: Equal air entry with no crackles or wheeze. HEART: S1 and S2 normal with no audible mumurs or gallops. Regular rhythm, femorals equal on both sides.. ABDOMEN: No hepatosplenomegaly, normal bowel sounds, no guarding or rigidity. SKIN: No rashes CENTRAL NERVOUS SYSTEM: No focal deficits. EXTREMITIES: No cyanosis, clubbing or edema. Right radial site clean and dry, good distal pulse. - Labs CBC & Chem 7: 10/20/19 07:01 10/18/19 06:53 Assessment and Plan Plan: Assessment and plan #1 epigastric pain, atypical for acute coronary syndrome. Evidence of acute cholecystitis. Patient will be scheduled as an outpatient to undergo laparoscopic cholecystectomy today. #2 hypertensive urgency #3 paroxysmal atrial fibrillation #4 history of syncope #5 coronary artery disease with prior stenting #6 history of cardiac ablation #7 history of gastric sleep surgery #8 hyperlipidemia Plan Patient did have a stress test that was positive for reversible ischemia, underwent a cardiac catheterization yesterday which did not reveal any significantly obstructive coronary artery disease. He is scheduled today to undergo laparoscopic cholecystectomy. DNP note has been reviewed, I agree with a documented findings and plan of care. Patient was seen and examined.
[2019-10-21] MEDS ORDERED: BUPIVACAIN-EPI 0.25%-1:200,000 30 ML VIAL SQ ONE ×2 (13:51)
[2019-10-21] MEDS: MULTIVITAMINS, THERA 1 EACH TAB PO SCH (15:55)
[2019-10-21] MEDS: ATORVASTATIN 80 MG TAB PO SCH (16:07)
[2019-10-21] MEDS: ASPIRIN 325 MG TAB PO SCH (16:07)
--- NOTE | 2019-10-21 17:40 | P.OP ---
Date of Procedure: 10/21/19 Procedure(s) Performed: PREOPERATIVE DIAGNOSIS: Acute cholecystitis POSTOPERATIVE DIAGNOSIS: Same PROCEDURE: Laparoscopic cholecystectomy SURGEON: Chaim EBL: Minimal see anesthesia record ANESTHESIA: Gen. COMPLICATIONS: None OPERATIVE PROCEDURE: The patient was brought and placed on the operating room table in the supine position. The patient was placed under general anesthesia at that time. The abdomen was prepped and draped in the usual sterile fashion. A small vertical infraumbilical incision was made. The fascia was grasped with the Kaila forceps. The fascia was retracted anteriorly. The Veress needle was advanced into the peritoneal cavity. The saline drop test was normal. Insufflation took place up to 15 mmHg. A 5 mm optical trocar was advanced and the peritoneal cavity. 2 additional 5 mm trochars were placed in the right upper quadrant under direct visualization. A 12 mm trocar was advanced into the epigastric incision site. Later an additional 5 mm trocar was placed in the right periumbilical location. Through that trocar a fan retractor was used to help visualize the infundibulum better. The gallbladder was acutely inflamed. The omentum was adherent to this. Blunt dissection allowed us to visualize the gallbladder better. There was definitely significant swelling and thickening of the gallbladder wall. No definite gangrene was seen. A small opening in the fundus took place in the bilious contents were evacuated. At that time the gallbladder was retracted superiorly and laterally. The peritoneum overlying the infundibulum was bluntly dissected. The patient's cystic duct was visualized. The junction between the cystic duct common and hepatic duct was identified. The cystic duct was then divided after placement of 3 12 mm clips on the patient's side and one on the specimen side. The cystic artery was identified and clipped as well. A small vessel was seen along the gallbladder fossa and clipped as well. The gallbladder was then removed from the liver bed using electrocautery. The gallbladder was then removed from the epigastric trocar site with an Endo Catch bag. The gallbladder fossa was irrigated with saline. There was no evidence of any bleeding or biliary drainage seen. A drain was placed at the gallbladder fossa exiting from the lateral 5 mm trocar site. This was sutured in place using a 3-0 silk stitch. The fascia at the 12 millimeter site was closed using a Eddie-[place] 0 Vicryl stitch. The trochars were then removed. The skin at all 4 sites was closed using a 4-0 Monocryl stitch. Skin glue was utilized on the incision sites. At the end of this procedure the sponge and needle counts were correct. DISPOSITION: Stable to the recovery room
[2019-10-22] MEDS: MULTIVITAMINS, THERA 1 EACH TAB PO SCH (04:45)
[2019-10-22] MEDS: METOPROLOL TARTRATE 25 MG TAB PO SCH (04:45)
[2019-10-22] MEDS: LOSARTAN 50 MG TAB PO SCH (04:45)
[2019-10-22 07:06] LABS: Basophils % (A) 0 %; Eosinophils # (A) 0.1 k/uL (0-0.7); Eosinophils % (A) 1 %; HCT 43.7 % (39.0-53.0); HGB 15.3 gm/dL (13.0-17.5); Lymphocytes % (A) 8 %; MCH 32.7 pg (25.0-35.0); MCV 93.6 fL (80.0-100.0); Mean Platelet Volume 6.9; Monocytes # (A) 0.7 k/uL (0-1.0); Monocytes % (A) 6 %; Neutrophils # (A) 10.3 k/uL (1.3-7.7); Neutrophils % (A) 85 %; Platelet Count 267 k/uL (150-450); RBC 4.67 m/uL (4.30-5.90); RDW 12.7 % (11.5-15.5); WBC 12.1 k/uL (3.8-10.6)
[2019-10-22 07:16] LABS: ALT 62 U/L (4-49); AST 41 U/L (17-59); African American GFR (CKD) >90 (>60 ml/min/1.73 sqM); Albumin 3.7 g/dL (3.5-5.0); Alkaline Phosphatase 163 U/L (38-126); Anion Gap 8 mmol/L; Blood Urea Nitrogen 13 mg/dL (9-20); Calcium 8.9 mg/dL (8.4-10.2); Carbon Dioxide 27 mmol/L (22-30); Chloride 100 mmol/L (98-107); Glucose 128 mg/dL (74-99); Non-African American GFR(CKD) >90 (>60 ml/min/1.73 sqM); Potassium 5.2 mmol/L (3.5-5.1); Sodium 135 mmol/L (137-145); Total Bilirubin 1.3 mg/dL (0.2-1.3); Total Protein 6.5 g/dL (6.3-8.2)
[2019-10-22] MEDS: PANTOPRAZOLE 40 MG TABLET PO SCH (08:17)
--- NOTE | 2019-10-22 09:38 | P.PN ---
Progress Note - Text Progress Note Date: 10/22/19 Patient is doing well today after cholecystectomy yesterday. Says his pain is been minimal. Feels much better than he did preoperatively. Liver enzymes increased slightly. JACINTO drain serosanguineous. White blood cell count slightly elevated. Patient is very anxious to go home today. Stable for discharge from my standpoint with drain in place. Likely will have the patient follow up early next week to have the drain removed. Provided prescription for Prilosec post discharge given his chronic complaints of reflux. Patient was asked to notify me with any increasing pain or bilious appearing JACINTO drain output.
[2019-10-22 10:16] VITALS: BP 139/90; PULSE 61; RESP 18; TEMP 97.5
--- NOTE | 2019-10-22 13:06 | P.DS ---
Providers Date of admission: 10/18/19 12:08 Expected date of discharge: 10/22/19 Attending physician: Lloyd Lindsay Consults: 10/16/19 22:16 Consult Physician Routine Consulting Provider: Cristian Rucker Consult Reason/Comments: abdominal pain Do you want consulting provider notified?: Yes Consult Physician Routine Consulting Provider: Rohan Cabrera Consult Reason/Comments: chest pain Do you want consulting provider notified?: Yes Primary care physician: Lloyd Lindsay [place] [facility] Course: Final diagnoses (1) Atrial fibrillation Current Visit: Yes Status: Acute Code(s): I48.91 - UNSPECIFIED ATRIAL FIBRILLATION SNOMED Code(s): 86580988 (2) acute Cholecystitis, status post laparoscopic cholecystectomy Current Visit: Yes Status: Acute Code(s): K81.9 - CHOLECYSTITIS, UNSPECIFIED SNOMED Code(s): 54373877 (3) Coronary artery disease, status post positive stress test, status post cardiac catheterization reporting patent stent in the mid LAD, normal LVend diastolic pressure. Current Visit: Yes Status: Acute Code(s): I25.10 - ATHSCL HEART DISEASE OF [place] CORONARY ARTERY W/O ANG PCTRS SNOMED Code(s): 09925266 (4) Epigastric pain Current Visit: Yes Status: Acute Code(s): R10.13 - EPIGASTRIC PAIN SNOMED Code(s): 53118032 (5) History of sleeve gastrectomy Current Visit: Yes Status: Acute Code(s): Z90.3 - ACQUIRED ABSENCE OF STOMACH [PART OF] SNOMED Code(s): 101757078352134 (6) Morbid obesity due to excess calories, BMI 47.3 Current Visit: Yes Status: Acute Code(s): E66.01 - MORBID (SEVERE) OBESITY DUE TO EXCESS CALORIES SNOMED Code(s): 263660544 (7) hypertensive urgency, resolved Hospital course: Patient admitted with multiple medical issues.underwent a stress test reporting stress-induced ischemia along the inferior lateral wall greater at the apex. Upon returning from stress test developed recurrent right upper quadrant/mid epigastric abdominal pain with minimal oral intake.Proceeded with cardiac catheterization reporting patent stent in the mid left anterior descending artery, normal LV and diastolic pressure. Patient proceeded with laparoscopic cholecystectomy IP, tolerated procedure well. Cleared by all consults for discharge. Patient is being discharged home in a stable condition with guarded prognosis. The impression and plan of care has been dictated as directed. : I performed a history and examination of this patient, discussed the same with the dictator. I agree with the dictator's note ,documented as a scribe. Any additional findings or plans will be noted. Patient Condition at Discharge: Stable Plan - Discharge Summary Discharge Rx Participant: Yes New Discharge Prescriptions: New Omeprazole [PriLOSEC] 20 mg PO AC-BRKFST #90 cap Continue Cholecalciferol [Vitamin D3 (25 Mcg = 1000 Iu)] 5,000 unit PO DAILY@0500 Losartan [Cozaar] 50 mg PO DAILY@0500 Aspirin [Adult Low Dose Aspirin EC] 81 mg PO HS@1700 Multivit-Min/FA/Lycopen/Lutein [Centrum Silver Tablet] 1 tab PO DAILY@0500 Metoprolol Tartrate 12.5 mg PO BID@0500,1700 Atorvastatin [Lipitor] 80 mg PO HS@1700 Discharge Medication List Cholecalciferol [Vitamin D3 (25 Mcg = 1000 Iu)] 5,000 unit PO DAILY@0500 11/14/16 [History] Aspirin [Adult Low Dose Aspirin EC] 81 mg PO HS@1700 05/12/17 [History] Losartan [Cozaar] 50 mg PO DAILY@0500 05/12/17 [History] Metoprolol Tartrate 12.5 mg PO BID@0500,1700 10/14/18 [History] Multivit-Min/FA/Lycopen/Lutein [Centrum Silver Tablet] 1 tab PO DAILY@0500 10/14/18 [History] Atorvastatin [Lipitor] 80 mg PO HS@1700 10/16/19 [History] Omeprazole [PriLOSEC] 20 mg PO AC-BRKFST #90 cap 10/22/19 [Rx] Follow up Appointment(s)/Referral(s): Cristian Rucker MD [Medical Doctor] - 10/27/19 3:45 pm Lloyd Lindsay DO [Primary Care Provider] - 10/25/19 5:10 pm Patient Instructions/Handouts: Cholecystitis (ED) Activity/Diet/Wound Care/Special Instructions: Pending final DC recommendations and clearance from both cardiology and surgery. Confirm cardiology follow-up appointment prior to discharge. Diet: Low-fat, low potassium Discharge Disposition: HOME SELF-CARE
--- NOTE | 2019-10-22 14:45 | P.PN ---
Subjective Progress Note Date: 10/22/19 This is a 59-year-old gentleman with history of recurrent syncopal episodes. In May 2017 he underwent a cardiac catheterization to rule out underlying ischemic heart disease because of syncopal episodes and was found to have moderate to severe disease involving the LAD for which she underwent stenting. Subsequently he had an EP study with ablation of atrial tachycardia. Since that time he has had no further episodes of any syncope. He does have history of previous gastric bypass surgery and does get intermittent abdominal discomfort from time to time. Patient did have some epigastric discomfort for which she took Tums, because there is no relief with Tums he came to the emergency room for further evaluation and treatment. He was given a GI cocktail with improvement in his symptoms. Patient was also found to have suspected cholecystitis and the plan is to proceed with outpatient laparoscopic cholecystectomy. He underwent a HIDA scan yesterday that did not reveal evidence of cystic duct obstruction. Blood pressure 127/70 with a heart rate of 80, 97% on room air. White blood cell count 10.4, hemoglobin 15.4, platelet count 224. We did schedule the patient this morning for a Lexiscan stress test, but because the HIDA scan was performed yesterday this will not be able to be p erformed until tomorrow. On examining the patient today, he denies any chest pain breathing is stable. He is quite frustrated that he is still in the hospital, and that he didn't get any food since last night. He also stated that he would prefer to do a walking type stress test. We will change his Radha scan tomorrow to a stress Cardiolite. 10/20/2019 Patient seen and examined this morning, he underwent a stress test today which revealed stress-induced ischemic change along the inferior lateral wall greater at the apex. For this reason patient was advised to undergo cardiac catheterization today, the risks and the benefits were explained to the patient and his in detail and he was willing to proceed. He did have a small bite to eat this morning after returning from his stress test, after he ate he did get his episode of abdominal pain. Blood pressure 144/90 with a heart rate in the 80s to 90s, 97% on room air. White blood cell count 10.5, hemoglobin 15.2, platelet count 186. 10/21/2019 Patient underwent a cardiac catheterization yesterday which did not reveal any significantly obstructive coronary artery disease. He is scheduled today to undergo laparoscopic cholecystectomy. Overall the patient feels well, denies any chest discomfort in his breathing is stable. 10/22/2019 Patient seen and examined this morning, status post laparoscopic cholecystectomy of yesterday. He's feels well denies any chest pain, no abdominal discomfort. Blood pressure 138/80 with a heart rate in the 60s, 97% on room air. White blood cell count 12.1, hemoglobin 15.3, platelet count 267. Sodium 135, potassium 5.2, BUN 13, creatinine 0.7. Objective - Vital Signs Vital signs: Vital Signs Temp 97.5 F L 10/22/19 08:00 Pulse 61 10/22/19 08:00 Resp 18 10/22/19 08:00 BP 139/90 10/22/19 08:00 Pulse Ox 97 10/22/19 08:00 Intake & Output 10/21/19 10/22/19 10/22/19 18:59 06:59 18:59 Intake Total 800 Output Total 20 550 Balance 780 -550 Weight 158.3 kg Intake: IV 800 Output: Drainage 50 Right Abdomen 50 Urine 500 Estimated Blood Loss 20 Other: Voiding Method Toilet Toilet # Voids 1 - Exam GENERAL EXAM: Patient is alert and oriented and doesn't appear to be in any acute distress HEENT: Normocephalic. Normal reaction of pupils, equal size, normal range of extraocular motion. No erythema or exudates in the throat. NECK: No masses, no nuchal rigidity. CHEST: No chest wall deformity. LUNGS: Equal air entry with no crackles or wheeze. HEART: S1 and S2 normal with no audible mumurs or gallops. Regular rhythm, femorals equal on both sides.. ABDOMEN: No hepatosplenomegaly, normal bowel sounds, no guarding or rigidity. SKIN: No rashes CENTRAL NERVOUS SYSTEM: No focal deficits. EXTREMITIES: No cyanosis, clubbing or edema. Right radial site clean and dry, good distal pulse. - Labs CBC & Chem 7: 10/22/19 06:42 10/22/19 06:42 Labs: Abnormal Lab Results - Last 24 Hours (Table) 10/22/19 10/22/19 Range/Units 06:42 06:42 WBC 12.1 H (3.8-10.6) k/uL Neutrophils # 10.3 H (1.3-7.7) k/uL Sodium 135 L (137-145) mmol/L Potassium 5.2 H (3.5-5.1) mmol/L Glucose 128 H (74-99) mg/dL ALT 62 H (4-49) U/L Alkaline Phosphatase 163 H (38-126) U/L Assessment and Plan Plan: Assessment and plan #1 epigastric pain, atypical for acute coronary syndrome. Evidence of acute cholecystitis. Status post laparoscopic cholecystectomy yesterday #2 hypertensive urgency #3 paroxysmal atrial fibrillation #4 history of syncope #5 coronary artery disease with prior stenting, patient underwent a cardiac catheterization this admission which did not reveal any significantly obstructive coronary artery disease #6 history of cardiac ablation #7 history of gastric sleep surgery #8 hyperlipidemia Plan From cardiology's perspective, patient may be able to be discharged home today. We'll make a follow-up appointment in the office post discharge. DNP note has been reviewed, I agree with a documented findings and plan of care. Patient was seen and examined.
== END 2019-10-22 11:10 | disposition home or self-care (01) | DRG 418 ==
LOC: EC 19:37 → 3SCARD 22:19 → OBSVTOIN 10-18 12:08
PROVIDERS: ADMIT Family Medicine; ATTEND Family Medicine
PROC: B2111ZZ Fluoroscopy of Multiple Coronary Arteries using Low Osmolar Contrast (ICD-10-PCS; 2019-10-20)
PROC: 4A023N7 Measurement of Cardiac Sampling and Pressure, Left Heart, Percutaneous Approach (ICD-10-PCS; 2019-10-20)
PROC: 0FT44ZZ Resection of Gallbladder, Percutaneous Endoscopic Approach (ICD-10-PCS; principal; 2019-10-21 13:00)
DX: K81.0 Acute cholecystitis (principal); K82.1 Hydrops of gallbladder; Z68.41 Body mass index [BMI] 40.0-44.9, adult; Z11.59 Encounter for screening for other viral diseases; I95.9 Hypotension, unspecified; E66.01 Morbid (severe) obesity due to excess calories; I48.0 Paroxysmal atrial fibrillation; I25.10 Atherosclerotic heart disease of native coronary artery without angina pectoris; Z95.5 Presence of coronary angioplasty implant and graft; I10 Essential (primary) hypertension; I16.0 Hypertensive urgency; K21.9 Gastro-esophageal reflux disease without esophagitis; N20.0 Calculus of kidney; E87.5 Hyperkalemia; E78.5 Hyperlipidemia, unspecified; Z79.899 Other long term (current) drug therapy; Z79.82 Long term (current) use of aspirin; Z98.890 Other specified postprocedural states; Z98.84 Bariatric surgery status; Z88.8 Allergy status to other drugs, medicaments and biological substances; Z82.49 Family history of ischemic heart disease and other diseases of the circulatory system
CPT/HCPCS: 36415; 71045; 71275; 74174; 76705; 78226; 78452; 80048; 80053; 80061; 83690; 83735; 83880; 84484; 85025; 85379; 85610; 85730; 88304; 93005; 93017; 93306; 93458; 96374; 96375; 99285

== ENCOUNTER 2020-02-20 17:55 | Emergency (ER) | payer MEDICAID ==
[2020-02-20 18:17] VITALS: TEMP 98.4
[2020-02-20] MEDS ORDERED: KETOROLAC 15 MG/ML 1 ML VIAL IVP STA (18:35)
[2020-02-20] MEDS ORDERED: ONDANSETRON 4 MG/2 ML VIAL IVP STA (18:35)
[2020-02-20] MEDS ORDERED: SODIUM CHLORIDE 0.9% 1,000 ML IV STA (18:35)
--- NOTE | 2020-02-20 18:38 | ED ---
General Adult HPI - General Chief complaint: Abdominal Pain Stated complaint: Kidney Stones/Back Pain Source: patient, RN notes reviewed Mode of arrival: wheelchair Limitations: no limitations - History of Present Illness Initial comments: 59-year-old male with a past medical history of atrial fibrillation, hypertension, syncope, nephrolithiasis presents to the emergency department for chief complaint of right great patient reports he has had right flank pain since 2 days ago. He he states he thought he had a kidney stone and pain improved and then he thought he passed a stone. However this evening pain started again. States it is similar to previous kidney stone pain. States he has nausea when the pain becomes severe. He denies fevers or chills. He did notice some blood in his urine earlier today.Patient has no other complaints at this time including shortness of breath, chest pain, abdominal pain, nausea or vomiting, headache, or visual changes. - Related Data Home Medications Medication Instructions Recorded Confirmed Cholecalciferol [Vitamin D3 (25 5,000 unit PO DAILY@0500 11/14/16 10/16/19 Mcg = 1000 Iu)] Aspirin [Adult Low Dose Aspirin EC] 81 mg PO HS@1700 05/12/17 10/16/19 Losartan [Cozaar] 50 mg PO DAILY@0500 05/12/17 10/16/19 Metoprolol Tartrate 12.5 mg PO BID@0500,1700 10/14/18 10/16/19 Multivit-Min/FA/Lycopen/Lutein 1 tab PO DAILY@0500 10/14/18 10/16/19 [Centrum Silver Tablet] Atorvastatin [Lipitor] 80 mg PO HS@1700 10/16/19 10/16/19 Previous Rx's Medication Instructions Recorded Omeprazole [PriLOSEC] 20 mg PO AC-BRKFST #90 cap 10/22/19 HYDROcodone/APAP 5-325MG [Walling 1 tab PO Q6HR PRN #10 tab 02/20/20 5-325] Ibuprofen [Motrin] 600 mg PO Q8HR PRN #20 tab 02/20/20 Ondansetron [Zofran ODT] 4 mg PO Q8HR PRN #15 tab 02/20/20 Tamsulosin [Flomax] 0.4 mg PO DAILY #20 cap 02/20/20 Allergies Allergy/AdvReac Type Severity Reaction Status Date / Time iodine Allergy Anaphylaxis Verified 02/20/20 18:17 Review of Systems ROS Statement: Those systems with pertinent positive or pertinent negative responses have been documented in the HPI. ROS Other: All systems not noted in ROS Statement are negative. Past Medical History Past Medical History: Atrial Fibrillation, Hypertension, Syncope Additional Past Medical History / Comment(s): SEE DR KIDD H&P History of Any Multi-Drug Resistant Organisms: None Reported Past Surgical History: Bariatric Surgery, Cardiac Ablation, Cholecystectomy, Heart Catheterization With Stent, Orthopedic Surgery Additional Past Surgical History / Comment(s): GASTRIC SLEEVE, LEFT KNEE SX, uvula surgery, 1 stent Past Anesthesia/Blood Transfusion Reactions: Previous Problems w/ Anesthesia Additional Past Anesthesia/Blood Transfusion Reaction / Comment(s): STATES TAKES LONGER TO WAKE UP Date of Last Stent Placement:: 2017 Past Psychological History: No Psychological Hx Reported Smoking Status: Never smoker Past Alcohol Use History: None Reported Past Drug Use History: None Reported - Past Family History Father Family Medical History: Deep Vein Thrombosis (DVT) General Exam Limitations: no limitations General appearance: alert, in no apparent distress Head exam: Present: atraumatic, normocephalic, normal inspection Eye exam: Present: normal appearance, PERRL, EOMI. Absent: scleral icterus, conjunctival injection, periorbital swelling ENT exam: Present: normal exam, mucous membranes moist Neck exam: Present: normal inspection, full ROM. Absent: tenderness, meningismus, lymphadenopathy Respiratory exam: Present: normal lung sounds bilaterally. Absent: respiratory distress, wheezes, rales, rhonchi, stridor Cardiovascular Exam: Present: regular rate, normal rhythm, normal heart sounds. Absent: systolic murmur, diastolic murmur, rubs, gallop, clicks GI/Abdominal exam: Present: soft, normal bowel sounds. Absent: distended, tenderness, guarding, rebound, rigid Back exam: Present: CVA tenderness (R) Course Vital Signs 02/20/20 02/20/20 18:13 20:24 Temperature 98.4 F Pulse Rate 75 65 Respiratory 18 12 Rate Blood Pressure 170/95 170/84 O2 Sat by Pulse 96 96 Oximetry Medical Decision Making - Medical Decision Making Vitals are stable. CBC does show mild leukocytosis. Likely reactive in nature CMP is unremarkable. Urinalysis does show trace blood. No obvious evidence of infection. CT abdomen and pelvis was obtained. This did demonstrate a small obstructing calculus in the proximal right ureter with right-sided hyd ronephrosis and perinephric and peripelvic edema. Obstruction is new compared to old exam. This measures 3 mm. patient was given pain medication which did help with his pain. Patient was given follow-up to urology. He will be discharged home with Flomax, Zofran, Walling, and Motrin. - Lab Data Result diagrams: 02/20/20 18:47 02/20/20 18:47 Lab Results 02/20/20 02/20/20 02/20/20 Range/Units 18:47 18:47 18:47 WBC 13.8 H (3.8-10.6) k/uL RBC 4.92 (4.30-5.90) m/uL Hgb 15.4 (13.0-17.5) gm/dL Hct 44.8 (39.0-53.0) % MCV 90.9 (80.0-100.0) fL MCH 31.3 (25.0-35.0) pg MCHC 34.4 (31.0-37.0) g/dL RDW 12.7 (11.5-15.5) % Plt Count 227 (150-450) k/uL Neutrophils % 81 % Lymphocytes % 10 % Monocytes % 6 % Eosinophils % 2 % Basophils % 1 % Neutrophils # 11.2 H (1.3-7.7) k/uL Lymphocytes # 1.3 (1.0-4.8) k/uL Monocytes # 0.8 (0-1.0) k/uL Eosinophils # 0.3 (0-0.7) k/uL Basophils # 0.1 (0-0.2) k/uL Sodium 136 L (137-145) mmol/L Potassium 3.9 (3.5-5.1) mmol/L Chloride 103 (98-107) mmol/L Carbon Dioxide 26 (22-30) mmol/L Anion Gap 7 mmol/L BUN 14 (9-20) mg/dL Creatinine 1.19 (0.66-1.25) mg/dL Est GFR (CKD-EPI)AfAm 76 (>60 ml/min/1.73 sqM) Est GFR (CKD-EPI)NonAf 66 (>60 ml/min/1.73 sqM) Glucose 150 H (74-99) mg/dL Calcium 9.0 (8.4-10.2) mg/dL Total Bilirubin 1.1 (0.2-1.3) mg/dL AST 29 (17-59) U/L ALT 25 (4-49) U/L Alkaline Phosphatase 101 (38-126) U/L Total Protein 6.9 (6.3-8.2) g/dL Albumin 4.0 (3.5-5.0) g/dL Amylase 62 (30-110) U/L Lipase 72 (23-300) U/L Urine Color Yellow Urine Appearance Clear (Clear) Urine pH 6.0 (5.0-8.0) Ur Specific [place] 1.033 (1.001-1.035) Urine Protein Trace H (Negative) Urine Glucose (UA) Negative (Negative) Urine Ketones Negative (Negative) Urine Blood Trace H (Negative) Urine Nitrite Negative (Negative) Urine Bilirubin Negative (Negative) Urine Urobilinogen 3.0 (<2.0) mg/dL Ur Leukocyte Esterase Trace H (Negative) Urine RBC 2 (0-5) /hpf Urine WBC 3 (0-5) /hpf Hyaline Casts 1 (0-2) /lpf Urine Mucus Few H (None) /hpf Disposition Clinical Impression: Nephrolithiasis Disposition: HOME SELF-CARE Condition: Good Instructions (If sedation given, give patient instructions): Kidney Stones (ED) Additional Instructions: Please take Motrin for pain. If pain is severe take Walling. Take Flomax as directed daily. Take Zofran as needed for nausea. Follow-up with urology. Return to the emergency room for any worsening symptoms. Prescriptions: Tamsulosin [Flomax] 0.4 mg PO DAILY #20 cap Ibuprofen [Motrin] 600 mg PO Q8HR PRN #20 tab PRN Reason: Pain HYDROcodone/APAP 5-325MG [Walling 5-325] 1 tab PO Q6HR PRN #10 tab PRN Reason: Pain Ondansetron [Zofran ODT] 4 mg PO Q8HR PRN #15 tab PRN Reason: Nausea Is patient prescribed a controlled substance at d/c from ED?: No Referrals: Lloyd Lindsay DO [Primary Care Provider] - 1-2 days Vipul Blackburn MD [STAFF PHYSICIAN] - 1-2 days Time of Disposition: 20:59
[2020-02-20 19:11] LABS: Basophils # (A) 0.1 k/uL (0-0.2); Basophils % (A) 1 %; Eosinophils # (A) 0.3 k/uL (0-0.7); Eosinophils % (A) 2 %; HCT 44.8 % (39.0-53.0); HGB 15.4 gm/dL (13.0-17.5); Lymphocytes # (A) 1.3 k/uL (1.0-4.8); Lymphocytes % (A) 10 %; MCH 31.3 pg (25.0-35.0); MCHC 34.4 g/dL (31.0-37.0); MCV 90.9 fL (80.0-100.0); Mean Platelet Volume 6.7; Monocytes # (A) 0.8 k/uL (0-1.0); Monocytes % (A) 6 %; Neutrophils # (A) 11.2 k/uL (1.3-7.7); Neutrophils % (A) 81 %; Platelet Count 227 k/uL (150-450); RBC 4.92 m/uL (4.30-5.90); RDW 12.7 % (11.5-15.5); WBC 13.8 k/uL (3.8-10.6)
[2020-02-20 19:25] LABS: Appearance,Urine Clear (Clear); Bilirubin,Urine Negative (Negative); Blood,Urine Trace (Negative); Color,Urine Yellow; Glucose,Urine (UA) Negative (Negative); Hyaline Casts,Urine 1 /lpf (0-2); Ketones,Urine Negative (Negative); Leukocyte Esterase,Urine Trace (Negative); Mucus,Urine Few /hpf; Nitrite,Urine Negative (Negative); Potassium 3.9 mmol/L (3.5-5.1); Protein,Urine Trace (Negative); RBC,Urine 2 /hpf (0-5); Specific Gravity,Urine 1.033 (1.001-1.035); Total Bilirubin 1.1 mg/dL (0.2-1.3); Total Protein 6.9 g/dL (6.3-8.2); WBC,Urine 3 /hpf (0-5)
[2020-02-20] MEDS ORDERED: HYDROmorphone 0.5 MG/0.5 ML SYRINGE IVP PRN (20:11)
--- NOTE | 2020-02-20 20:15 | CT ---
EXAMINATION TYPE: CT abdomen pelvis wo con DATE OF EXAM: 02/20/2020 COMPARISON: 10/14/2018 HISTORY: left flank pain CT DLP: 2247.4 mGycm Automated exposure control for dose reduction was used. Lung bases are clear. There is no pleural effusion. Heart size is normal. Liver spleen pancreas appear normal. There are clips from cholecystectomy. There are clips from gastr ic or gastric surgery. There is no adrenal mass. Kidneys have normal size. There is 3 cm cyst lateral right kidney. There is right side mild hydronephrosis and peripelvic edema. There is 3 mm obstructin g calculus in the proximal right ureter. There is no retroperitoneal adenopathy. Bladder is almost em pty. Prostate measures 4.2 cm. There is no inguinal hernia. There is no free fluid in the pelvis. Joy endix is posterior and appears normal. There is no evidence of free air. There is no ascites. There is no sign of a bowel obstruction. There are a few sigmoid diverticula. IMPRESSION: Small obstructing calculus proximal right ureter with right-sided hydronephrosis and perinephric and peripelvic edema. Obstruction is new compared to old exam. No definite calculus seen within the kidne ys.
[2020-02-20 20:25] VITALS: BP 170/84; PULSE 65; RESP 12
== END 2020-02-20 21:39 | disposition home or self-care (01) ==
LOC: EC 17:55
DX: N13.2 Hydronephrosis with renal and ureteral calculous obstruction (principal); I10 Essential (primary) hypertension; I48.91 Unspecified atrial fibrillation; Z79.82 Long term (current) use of aspirin; Z79.899 Other long term (current) drug therapy; Z91.048 Other nonmedicinal substance allergy status; Z98.84 Bariatric surgery status; Z90.49 Acquired absence of other specified parts of digestive tract
CPT/HCPCS: 36415; 80053; 82150; 83690; 85025; 81001; 74176; 99284; 96374; 96375 ×2; 96361; J2405; J1885; J1170

== ENCOUNTER → 2020-12-05 | Outpatient (CLI) | payer MEDICAID ==
[2020-12-05 14:40] VITALS: BP 111/69; PULSE 68; RESP 18; TEMP 97.8; BMI 46.9
--- NOTE | 2020-12-05 15:26 | P.BASOAP ---
Subjective Progress Note Date: 12/05/20 Principal diagnosis: Morbid obesity Patient returns for evaluation. Patient had sleeve gastrectomy many years ago. Prior to this leave the patient's weight was approximately 400 pounds. He was able to get down to approximately 300 pounds. Currently today 346. Patient's mother's passing away from pancreatic cancer. He has had a lot of stress going on. Despite that patient has remained quite active. Patient says that after his cholecystectomy has had worsening reflux. Takes omeprazole 20 mg daily. Needs a refill. States he does not eat after 7 PM because of acid reflux. As long as he takes his medications and does not eat late he does well. Objective - Vital Signs Vital signs: Vital Signs Temp 97.8 F 12/05/20 14:19 Pulse 68 12/05/20 14:19 Resp 18 12/05/20 14:19 BP 111/69 12/05/20 14:19 Pulse Ox Intake & Output 12/04/20 12/05/20 12/05/20 18:59 06:59 18:59 Weight 156.943 kg - Exam Abdomen: Soft, nontender, nondistended Assessment/Plan (1) Morbid obesity due to excess calories Narrative/Plan: Patient with ongoing intermittent acid reflux. We'll renew the patient's prescription for omeprazole. Continue dietary and exercise regimen. Plan: Date: 12/05/20 Initial Weight: Initial BMI: Current Weight: 156.943 kg Current BMI: 46.9 Type of Surgery: Total Volume in Band: Previous Volume: Volume Removed: Volume Added: Band Size:
== END ==
LOC: BARWHC3 13:59
PROVIDERS: ATTEND Surgery
DX: E66.01 Morbid (severe) obesity due to excess calories (principal); K21.9 Gastro-esophageal reflux disease without esophagitis; Z68.41 Body mass index [BMI] 40.0-44.9, adult; Z91.041 Radiographic dye allergy status
CPT/HCPCS: 99211

== ENCOUNTER → 2021-10-31 | Outpatient (CLI) | payer MEDICAID ==
--- NOTE | 2021-10-31 12:11 | US ---
EXAMINATION TYPE: US venous doppler duplex LE DATE OF EXAM: 10/31/2021 12:04 PM COMPARISON: US CLINICAL HISTORY: M79.662 Pain in left lower leg. Pain left knee SIDE PERFORMED: Left TECHNIQUE: The lower extremity deep venous system is examined utilizing real time linear array sonog denton with graded compression, doppler sonography and color-flow sonography. VESSELS IMAGED: Common Femoral Vein Deep Femoral Vein Greater Saphenous Vein * Femoral Vein Popliteal Vein Small Saphenous Vein * Proximal Calf Veins (* superficial vessels) Left Leg: Negative for DVT, probable Garcia's Cyst left pop fossa= 8.5 x 1.6 x 2.7 cm Attempted to call Dr's office at time of exam, no answer IMPRESSION: No evidence for DVT at this time.
== END | disposition home or self-care (01) ==
LOC: RADUSWWP 11:46
PROVIDERS: ATTEND Orthopaedic Surgery
DX: M79.662 Pain in left lower leg (principal); M25.562 Pain in left knee

== ENCOUNTER → 2022-03-06 | Outpatient (CLI) | payer MEDICAID ==
--- NOTE | 2022-03-07 02:52 | MR ---
EXAMINATION TYPE: MR knee LT wo con DATE OF EXAM: 03/06/2022 COMPARISON: None HISTORY: Left knee pain, injury 6 months ago. Multiplanar multiecho imaging of the left knee performed without contrast. There is knee joint effusion. There is subcutaneous edema around the knee. The anterior and posterior cruciate ligaments are intact. There is severe narrowing of the medial joint space with medial displ acement of the medial meniscus. There is subchondral edema in the medial aspect medial tibial condyle . A small area of subchondral edema in the medial femoral condyle. Lateral meniscus appears intact. The medial collateral ligament is intact. No fracture seen. IMPRESSION: Moderately severe osteoarthritis in the medial joint space with significant joint space narrowing. De generative thinning and displacement of the medial meniscus. No evidence of ligamentous tear. Subcuta neous cutaneous edema around the anterior knee.
== END | disposition home or self-care (01) ==
LOC: RADMRIMAIN 17:23
PROVIDERS: ATTEND Family Medicine
DX: M17.12 Unilateral primary osteoarthritis, left knee (principal); M23.92 Unspecified internal derangement of left knee

== ENCOUNTER 2022-03-26 08:01 | Day surgery (SDC) | payer MEDICAID ==
[2022-03-21 10:02] VITALS: BMI 47.5
[~2022-03-26 08:01] MED LIST changes: -ALPRAZolam 0.25 MG TAB PO PRN; -ALPRAZolam 0.5 MG TAB PO PRN; -ASPIRIN 325 MG TAB PO STA; -ATORVASTATIN 80 MG TAB PO STA; +LACTATED RINGERS 1,000 ML IV SCH; -NITROGLYCERIN SL TABS 0.4 MG TAB SUBLINGUAL PRN; -SODIUM CHLORIDE 0.9% 1,000 ML in EMPTY BAG 1 BAG IV ONE
[2022-03-26 08:40] VITALS: TEMP 97.9
[2022-03-26] MEDS ORDERED: LIDOCAINE 2% INJ 20 MG/ML (2 ML VIAL) ONE (08:53)
[2022-03-26] MEDS ORDERED: PROPOFOL 10 MG/ML 20 ML VIAL IV ONE (08:53)
--- NOTE | 2022-03-26 08:58 | P.GSHP ---
History of Present Illness H&P Date: 03/26/22 61-year-old male here today for colonoscopy. He has not had 1 previously. No bowel complaints. No family history of colon cancer. Past Medical History Past Medical History: Atrial Fibrillation, Hypertension, Syncope Additional Past Medical History / Comment(s): SEE DR KIDD H&P History of Any Multi-Drug Resistant Organisms: None Reported Past Surgical History: Back Surgery, Bariatric Surgery, Cardiac Ablation, Cholecystectomy, Heart Catheterization With Stent, Orthopedic Surgery Additional Past Surgical History / Comment(s): GASTRIC SLEEVE, LEFT KNEE SX, uvula surgery, 1 stent, left finger surgery Past Anesthesia/Blood Transfusion Reactions: Previous Problems w/ Anesthesia Additional Past Anesthesia/Blood Transfusion Reaction / Comment(s): STATES TAKES LONGER TO WAKE UP Date of Last Stent Placement:: 2017 Smoking Status: Never smoker - Past Family History Father Family Medical History: Deep Vein Thrombosis (DVT) Medications and Allergies Home Medications Medication Instructions Recorded Confirmed Type Cholecalciferol [Vitamin D3 (25 5,000 unit PO DAILY@0500 11/14/16 03/26/22 History Mcg = 1000 Iu)] Aspirin [Adult Low Dose Aspirin EC] 81 mg PO HS@1700 05/12/17 03/26/22 History Multivit-Min/FA/Lycopen/Lutein 1 tab PO DAILY@0500 10/14/18 03/26/22 History [Centrum Silver Tablet] Atorvastatin [Lipitor] 80 mg PO HS@1700 10/16/19 03/26/22 History Omeprazole [PriLOSEC] 20 mg PO -BRKFST #90 cap 10/22/19 03/26/22 Rx Losartan/Hydrochlorothiazide 1 tab PO DAILY 03/21/22 03/26/22 History [Losartan-Hctz 100-25 mg Tab] Allergies Allergy/AdvReac Type Severity Reaction Status Date / Time iodine Allergy Anaphylaxis Verified 03/26/22 08:28 Surgical - Exam Vital Signs Temp Pulse Resp BP Pulse Ox 97.9 F 60 18 142/63 97 03/26/22 08:36 03/26/22 08:36 03/26/22 08:36 03/26/22 08:36 03/26/22 08:36 Physical exam: General: Well-developed, well-nourished HEENT: Normocephalic, sclerae nonicteric Abdomen: Nontender, nondistended Extremities: No edema Neuro: Alert and oriented Assessment and Plan (1) Colon cancer screening Narrative/Plan: Will proceed with colonoscopy Current Visit: Yes Status: Acute Code(s): Z12.11 - ENCOUNTER FOR SCREENING FOR MALIGNANT NEOPLASM OF COLON SNOMED Code(s): 679702390
--- NOTE | 2022-03-26 09:14 | P.PCN ---
Date of Procedure: 03/26/22 Procedure(s) Performed: PREOPERATIVE DIAGNOSIS: Colon cancer screening POSTOPERATIVE DIAGNOSIS: Sigmoid colon polyp, diverticulosis PROCEDURE: Colonoscopy with snare polypectomy ANESTHESIA: MAC SURGEON: Cristian Rucker M.D. SPECIMENS: Sigmoid polyp ENDOSCOPIC PROCEDURE: The patient was placed on the endoscopy table in the left decubitus position. The Olympus colonoscope was inserted into the anus and passed under direct visualization to the base of the cecum. The appendiceal orifice was visualized. From that point the scope was slowly withdrawn inspecting all surfaces carefully. There were no neoplastic inflammatory or polypoid lesions throughout the cecum, ascending, transverse, and descending colon. In the sigmoid there was a small polyp removed using the snare with cautery technique. The remainder of the sigmoid and rectum appeared normal. There was mild left-sided diverticulosis. Digital rectal examination was normal. The patient was taken to the recovery room in stable condition per anesthesia guidelines. RECOMMENDATIONS: Await biopsy results. Repeat colonoscopy in 5 years.
[2022-03-26 09:22] VITALS: RESP 16
[2022-03-26 09:39] VITALS: BP 124/79; PULSE 73
== END 2022-03-26 09:57 | disposition home or self-care (01) ==
LOC: ORWHC2ENDO 08:01
PROVIDERS: ATTEND Surgery
DX: Z12.11 Encounter for screening for malignant neoplasm of colon (principal); D12.5 Benign neoplasm of sigmoid colon; K57.30 Diverticulosis of large intestine without perforation or abscess without bleeding; I48.91 Unspecified atrial fibrillation; I10 Essential (primary) hypertension; Z90.49 Acquired absence of other specified parts of digestive tract; Z79.899 Other long term (current) drug therapy; Z82.49 Family history of ischemic heart disease and other diseases of the circulatory system; Z79.82 Long term (current) use of aspirin
CPT/HCPCS: 88305; 45385; J2704; J2001

== ENCOUNTER → 2022-07-09 | Outpatient (CLI) | payer MEDICAID ==
[2022-07-09 10:34] LABS: HCT 44.2 % (39.6-50.0); HGB 15.1 g/dL (13.0-17.0); MCH 31.5 pg (27.0-32.0); MCHC 34.2 g/dL (32.0-37.0); MCV 92.1 fL (80.0-97.0); Mean Platelet Volume 9.5 fL (9.5-12.2); NRBC Per 100 WBC 0 /100 WBCS (0.0-0.0); Platelet Count 225 X 10*3/uL (140-440); RDW 12.8 % (11.5-14.5); WBC 8.36 X 10*3/uL (4.50-10.00)
[2022-07-09 10:52] LABS: ALT 28 U/L (10-49); AST 25 U/L (14-35); African American GFR (CKD) 92.4 (60.0-200.0); Albumin/Globulin Ratio 1.38 (1.60-3.17); Alkaline Phosphatase 96 U/L (41-126); Calcium 9.3 mg/dL (8.7-10.3); Carbon Dioxide 27.8 mmol/L (20.0-27.5); Chloride 102 mmol/L (96-109); Chol/HDL Ratio 3.16 Ratio; Globulin 2.9 g/dL (1.6-3.3); Glucose 96 mg/dL (70-110); LDL Cholesterol,Calculated 58.1 mg/dL (0.0-131.0); Non-African American GFR(CKD) 79.7 (60.0-200.0); Potassium 4.2 mmol/L (3.5-5.5); Sodium 140 mmol/L (135-145); Total Protein 6.9 g/dL (6.2-8.2)
== END | disposition home or self-care (01) ==
LOC: LABWHC1 06:51
PROVIDERS: ATTEND Nurse Practitioner Adult Health
DX: I10 Essential (primary) hypertension (principal); I25.10 Atherosclerotic heart disease of native coronary artery without angina pectoris; I47.1 Supraventricular tachycardia; E78.5 Hyperlipidemia, unspecified
CPT/HCPCS: 36415; 80053; 80061; 83735; 84443; 85027

== ENCOUNTER → 2022-10-11 | Outpatient (CLI) | payer MEDICAID ==
[2022-10-11 11:52] LABS: LDL Cholesterol,Calculated 58.5 mg/dL (0.0-131.0); VLDL Calculation 16.48 mg/dL (5.00-40.00)
== END | disposition home or self-care (01) ==
LOC: LABWHC1 07:02
PROVIDERS: ATTEND Internal Medicine Clinical Cardiac Electrophysiology
DX: E78.5 Hyperlipidemia, unspecified (principal)
CPT/HCPCS: 36415; 80061

== ENCOUNTER 2022-12-02 10:48 | Day surgery (SDC) | payer MEDICAID ==
[2022-11-25 14:02] VITALS: BMI 46.7
[~2022-12-02 10:48] MED LIST changes: -LACTATED RINGERS 1,000 ML IV SCH; +SODIUM CHLORIDE 0.9% 1,000 ML IV SCH
[2022-12-02 11:23] VITALS: RESP 16; TEMP 98.9
[2022-12-02] MEDS ORDERED: SODIUM CHLORIDE 0.9% 500 ML 500 ML IV ONE (11:25)
[2022-12-02] MEDS ORDERED: IV FLUID CONTINUATION 400 ML IV ONE (11:25)
[2022-12-02] MEDS ORDERED: LIDOCAINE 1% INJ 10MG/ML (20 ML MDV) SQ ONE (11:30)
--- NOTE | 2022-12-02 11:46 | P.EPPROC ---
- EP Procedure Note Electrophysiology Procedure Note: Loop monitor implant Primary physicians: Content Analyst: Dr. Sandra Indication: Atrial fibrillation, recurrent presyncope Patient was brought to the EP lab in a fasting state. Written informed consent was obtained prior to the procedure. The left pectoral area was prepped and draped per protocol. Intravenous antibiotic was administered preoperatively. A subcutaneous Loop monitor was implanted successfully and the wound was closed per protocol. The device was programmed to detect significant kush- arrhythmic and tachy-arrhythmic events, per protocol. Device and programming details: Syncope protocol and A. fib protocol Patient underwent EP procedure under conscious sedation/moderate sedation, monitoring of the level of consciousness and physiologic parameters including but not limited to vital signs and oxygenation. Patient tolerated the procedure well without any acute complications. Start time: 1129 Stop time: 113
[2022-12-02 13:21] VITALS: BP 137/69; PULSE 80
== END 2022-12-02 13:21 | disposition home or self-care (01) ==
LOC: CATHEP 10:48
PROVIDERS: ATTEND Internal Medicine Clinical Cardiac Electrophysiology
DX: R55 Syncope and collapse (principal); I48.19 Other persistent atrial fibrillation; I10 Essential (primary) hypertension; Z95.1 Presence of aortocoronary bypass graft; Z79.82 Long term (current) use of aspirin; Z79.02 Long term (current) use of antithrombotics/antiplatelets; Z79.899 Other long term (current) drug therapy
CPT/HCPCS: 33285; C1764; J0690; J2001

== ENCOUNTER → 2023-06-06 | Outpatient (CLI) | payer MEDICAID ==
[2023-06-06 10:44] LABS: Basophils # (A) 0.06 X 10*3/uL (0.00-0.10); Basophils % (A) 0.8 %; Eosinophils # (A) 0.34 X 10*3/uL (0.04-0.35); Eosinophils % (A) 4.7 %; HCT 42.5 % (39.6-50.0); HGB 14.6 g/dL (13.0-17.0); Lymphocytes % (A) 30.5 %; MCH 30.7 pg (27.0-32.0); MCHC 34.4 g/dL (32.0-37.0); MCV 89.5 FL (80.0-97.0); Mean Platelet Volume 9.2 FL (9.5-12.2); Monocytes % (A) 6.9 %; NRBC Per 100 WBC 0 X 10*3/uL (0.00-0.01); Neutrophils % (A) 56.8 %; Platelet Count 213 X 10*3/uL (140-440); RBC 4.75 X 10*6/uL (4.40-5.60); RDW 12.8 % (11.5-14.5); WBC 7.22 X 10*3/uL (4.50-10.00)
[2023-06-06 11:18] LABS: ALT 26 U/L (10-49); AST 25 U/L (14-35); Alkaline Phosphatase 96 U/L (41-126); BUN/Creat Ratio 21.75 Ratio (12.00-20.00); Blood Urea Nitrogen 17.4 mg/dL (9.0-27.0); Calcium 9.1 mg/dL (8.7-10.3); Carbon Dioxide 26.4 mmol/L (21.6-31.8); Chloride 103 mmol/L (96-109); Chol/HDL Ratio 2.91 Ratio; Globulin 2.5 g/dL (1.6-3.3); Glucose 94 mg/dL (70-110); Potassium 4.1 mmol/L (3.5-5.5); Sodium 140 mmol/L (135-145); Total Bilirubin 0.7 mg/dL (0.3-1.2); Total Protein 6.5 g/dL (6.2-8.2); VLDL Calculation 17.76 mg/dL (5.00-40.00)
== END | disposition home or self-care (01) ==
LOC: LABWHC1 06:56
PROVIDERS: ATTEND Internal Medicine Clinical Cardiac Electrophysiology
DX: I10 Essential (primary) hypertension (principal); E78.5 Hyperlipidemia, unspecified; I25.10 Atherosclerotic heart disease of native coronary artery without angina pectoris
CPT/HCPCS: 36415; 80053; 80061; 83036; 83735; 84443; 85025

== ENCOUNTER → 2024-06-22 | Outpatient (CLI) | payer MEDICARE ==
[2024-06-22 12:47] LABS: Basophils # (A) 0.03 X 10*3/uL (0.00-0.10); Basophils % (A) 0.4 %; Eosinophils # (A) 0.31 X 10*3/uL (0.04-0.35); Eosinophils % (A) 3.8 %; HCT 43.6 % (39.6-50.0); HGB 14.8 g/dL (13.0-17.0); Lymphocytes # (A) 2.47 X 10*3/uL (0.90-5.00); MCH 31.6 pg (27.0-32.0); MCHC 33.9 g/dL (32.0-37.0); Mean Platelet Volume 10.1 FL (9.5-12.2); Monocytes # (A) 0.67 X 10*3/uL (0.20-1.00); Monocytes % (A) 8.2 %; NRBC Per 100 WBC 0 X 10*3/uL (0.00-0.01); Neutrophils # (A) 4.72 X 10*3/uL (1.80-7.70); Neutrophils % (A) 57.4 %; Platelet Count 226 X 10*3/uL (140-440); RBC 4.69 X 10*6/uL (4.40-5.60); RDW 12.8 % (11.5-14.5); WBC 8.22 X 10*3/uL (4.50-10.00)
[2024-06-22 13:05] LABS: Blood Urea Nitrogen 14.8 mg/dL (9.0-27.0); Chloride 104 mmol/L (96-109); Glucose 96 mg/dL (70-110); Potassium 4.6 mmol/L (3.5-5.5); Sodium 144 mmol/L (135-145)
[2024-06-22 13:06] LABS: ALT 26 U/L (10-49); AST 21 U/L (14-35); Albumin 3.8 g/dL (3.8-4.9); Albumin/Globulin Ratio 1.73 Ratio (1.60-3.17); Alkaline Phosphatase 89 U/L (41-126); Calcium 9.2 mg/dL (8.7-10.3); Carbon Dioxide 29.7 mmol/L (21.6-31.8); Globulin 2.2 g/dL (1.6-3.3); Magnesium 2.1 mg/dL (1.5-2.4); Total Bilirubin 0.8 mg/dL (0.3-1.2)
== END | disposition home or self-care (01) ==
LOC: LABWHC1 07:08
PROVIDERS: ATTEND Internal Medicine Clinical Cardiac Electrophysiology
DX: D48.0 Neoplasm of uncertain behavior of bone and articular cartilage (principal); I47.20 Ventricular tachycardia, unspecified
CPT/HCPCS: 36415; 80053; 83735; 84443; 85025

== ENCOUNTER 2024-07-21 06:07 | Day surgery (SDC) | payer MEDICARE ==
[~2024-07-21 06:07] MED LIST changes: +ALPRAZolam 0.25 MG TAB PO PRN; +ALPRAZolam 0.5 MG TAB PO PRN; +NITROGLYCERIN SL TABS 0.4 MG TAB SUBLINGUAL PRN; -SODIUM CHLORIDE 0.9% 1,000 ML IV SCH
[2024-07-21] MEDS ORDERED: ATORVASTATIN 80 MG TAB PO ONE (07:00)
[2024-07-21] MEDS: SODIUM CHLORIDE 0.9% 1,000 ML in EMPTY BAG 1 BAG IV SCH (07:19)
[2024-07-21] MEDS: ASPIRIN 325 MG TAB PO ONE (07:19)
[2024-07-21] MEDS: IV FLUID CONTINUATION 1,000 ML IV ONE (07:21)
[2024-07-21 07:29] VITALS: RESP 16; TEMP 98.2
[2024-07-21] MEDS: MIDAZOLAM 2 MG/2 ML VIAL IVP ONE (07:59)
[2024-07-21] MEDS: fentaNYL (PF) 50 MCG/ML 2 ML AMP IVP ONE (07:59)
[2024-07-21] MEDS: LIDOCAINE 1% INJ 10MG/ML (20 ML MDV) SQ ONE (08:00)
[2024-07-21] MEDS: VERAPAMIL SYRINGE (5 MG/10 ML) INTRAARTER ONE (08:01)
[2024-07-21] MEDS: HEPARIN SODIUM 1,000 UN/ML (10ML VL) IVP ONE (08:04)
[2024-07-21] MEDS: HEPARIN SODIUM,PORCINE 10,000 UNIT in SODIUM CHLORIDE 0.9% 1,000 ML IRRIGATION PRN (08:07)
[2024-07-21] MEDS: HEPARIN SODIUM,PORCINE (1 ML) 2,500 UNIT in SODIUM CHLORIDE 0.9% 250 ML IRRIGATION PRN (08:07)
[2024-07-21] MEDS: IOPAMIDOL-370 100ML BTL INJ ONE (08:17)
[2024-07-21] MEDS ORDERED: RX INFO: IV CONTRAST WAS GIVEN 1 EACH MISC MISCELLANE PRN (08:28)
--- NOTE | 2024-07-21 08:28 | P.CARDCATH ---
Date of Procedure: 07/21/24 Description of Procedure: DIAGNOSTIC CORONARY ANGIOGRAPHY and LEFT HEART CATH REPORT PROCEDURES PERFORMED: Left heart catheterization Selective coronary angiography Moderate conscious sedation 23 mins [Ultrasound assisted] Right radial access INDICATION: Abnormal stress test showing anteroapical wall reversible perfusion defect CONSENT: I have explained the procedural steps of above-mentioned procedures in layman's terms to the patient. I discussed the risks (including but not limited to stroke, emergent vascular or cardiac surgery or ), benefits and alternative therapies for the above-mentioned procedure. I discussed the risks of sedation/analgesia and blood product administration (if indicated). The patient has indicated understanding and acceptance of these risks. Conscious Sedation: Patient's ECG, heart rate, blood pressure, pulse oximetry were monitored throughout the duration of procedure under my direct supervision. 1 mg Versed and 50 mcg Fentanyl were used for induction of moderate conscious sedation. Total duration of moderate concious sedation 23 minutes. PROCEDURAL DETAILS: Patient was prepped and draped in sterile fashion. 1% lidocaine was infiltrated over the right radial artery. Right radial access was obtained via modified seldinger technique. [Ultrasound was used for radial access]. Medications: 5mg of verapamil was administed in the radial sheet. 7000 Units of Heparin was administed once the catheter reached the aortic root Wires and Catheter used: J wire was advanced under fluroscopy to get to aortic root. 5 comoran JR 4 diagnostic catheter was utilized obtain left ventricular pressure and pressure gradint across aortic valve. 5 comoran JR 4 diagnostic catheter was used to selectively engage the right coronary ostium. 5 comoran JL 3.5 diagnostic catheter was utilized to selectively engage the left coronary ostium. Angiographic images were reviewed in detail. Catheter and wire were removed. Radial sheet was flushed. The right radial sheath was removed and a TR band was placed. Patent hemostasis was achieved. The patient tolerated the procedure well. Patient was transported back to the post catheterization holding area in stable condition. TECHNICAL DETAILS Total contrast used: Isovue [60 ml] Complications: [none] Estimated Blood loss: less than 15 ml HEMODYNAMICS: Aortic Pressure: 138/90 mmHg. LV pressure: 140/20 mmHg. LVEDP 30 mmHg. There was no significant gradient across the aortic valve. SELECTIVE CORONARY ARTERIOGRAPHY: LEFT MAIN: The left main is short and large caliber vessel. And continues to become proximal LAD and gives circumflex and ramus branch. LEFT ANTERIOR DESCENDING CORONARY ARTERY: LAD is large caliber terminates before reaching the apex. Proximal mid and distal LAD appears angiographically patent. Patent stent in mid LAD. LAD gives rise to 2 diagonal branches which are medium caliber. Diagonal 1 appears angiographically patent. Diagonal 2 has 20% disease in proximal segment otherwise appears angiographically patent. RAMUS: Medium caliber appears angiographically patent. LEFT CIRCUMFLEX CORONARY ARTERY: It is nondominant vessel. Appears angiographically patent. RIGHT CORONARY ARTERY: Dominant vessel with huge caliber. Appears angiographically patent. Distally bifurcates into PDA and PL branches. They appear in the graphically patent. IMPRESSION: Patent stent in proximal LAD 20% disease in proximal diagonal 2 Mild luminal irregularities otherwise Elevated LVEDP Elevated blood pressure Frequent PVCs PLAN: 75 cc/h for 4 hours Aggressive risk factor modification as per ACC AHA guidelines Follow-up with Dr. Sandra Discharge home in 4 to 5 hours Performing Physician Krzysztof Salvador MD, FACC, RPVI Thank you for allowing [facility] to participate in this patient's care. Feel free to reach out in case of any followup questions.
[2024-07-21] MEDS ORDERED: SODIUM CHLORIDE 0.9% 1,000 ML IV SCH (08:30)
[2024-07-21 12:53] VITALS: BP 130/68; PULSE 74
== END 2024-07-21 12:45 | disposition home or self-care (01) ==
LOC: CATHCVL 06:07
PROVIDERS: ATTEND Student in an Organized Health Care Education/Training Program
DX: I25.10 Atherosclerotic heart disease of native coronary artery without angina pectoris (principal); I49.3 Ventricular premature depolarization; I48.0 Paroxysmal atrial fibrillation; I77.819 Aortic ectasia, unspecified site; R03.0 Elevated blood-pressure reading, without diagnosis of hypertension; Z95.5 Presence of coronary angioplasty implant and graft; Z79.82 Long term (current) use of aspirin; Z79.899 Other long term (current) drug therapy
CPT/HCPCS: 93458; 99152; 99153; C1894; C1769; J2250; J1644 ×3; J2003; J3010; Q9967